=== PATIENT | female | born 1950 | race Caucasian/White ===

== ENCOUNTER 2024-10-12 13:07 | Inpatient (IN) | payer MEDICARE, SELFPAY ==
--- NOTE | ~2024-10-12 | CT_ITS ---
EXAMINATION: CT HEAD WITHOUT CONTRAST CLINICAL INFORMATION: Fall, head strike COMPARISON: None available. TECHNIQUE: Contiguous axial imaging was performed from the skull base to vertex without intravenous administration of contrast. This CT examination was performed using dose optimization techniques as appropriate, variously including the following: *Automated exposure control *Adjustment of mA and/or kV according to patient size (this includes techniques or standardized protocols for targeted exams where dose is matched to indication/reason for exam; i.e. extremities or head) *Use of iterative reconstruction technique FINDINGS: There is technical artifact in the posterior fossa. There is no evidence of intracranial hemorrhage or extra-axial fluid collection. There is no mass effect, or edema. No CT evidence of acute territorial infarct. Ventricles, sulci, and cisterns are normal in size and configuration for patient age. There is more prominent bifrontal atrophy. No hydrocephalus. No midline shift. Negative hyperdense MCA sign. Negative insular ribbon sign. Patchy periventricular and deep white matter hypoattenuation is consistent with mild to moderate small vessel ischemic changes. Normal pituitary. Atheromatous calcification of the bilateral carotid siphons. Globes and orbital contents image normally. No extracranial soft tissue abnormalities. The paranasal sinuses, mastoid air cells, and tympanic cavities are normally aerated. Tiny air-fluid left maxillary sinus. No suspicious bony abnormalities. There are no acute fractures evident. Degenerative changes right greater than left TM joints. CT/CT head/brain wo IV con IMPRESSION: 1. No acute intracranial abnormality. No fracture evident. 2. Ancillary findings as discussed. Electronically signed by: Diego Wayne MD 10/12/2024 03:10 PM EDT
--- NOTE | ~2024-10-12 | MR_ITS ---
CLINICAL HISTORY: ataxia, motion on images, repeats and reminders, best obtainable MR Brain without gadolinium Comparison: CT/SR - CT HEAD/BRAIN WO IV CON - 10/12/24 14:31 EDT Findings: There is age-appropriate atrophy. The size and shape of the ventricular system is within normal limits for degree of atrophy. Mild areas of T2 and FLAIR hyperintensity are identified within the periventricular and deep white matter. Similar areas of increased signal intensity are seen within the jose. Henderson-white differentiation is well preserved. No restricted diffusion. No intracranial hemorrhage. Visualized flow voids are patent. No calvarial lesions. IMPRESSION: No acute findings. Specifically, no hemorrhage, mass, or acutely restricted diffusion. This document has been electronically signed by: Javan Soriano MD on 10/12/2024 21:17:50
--- NOTE | ~2024-10-12 | FL_ITS ---
EXAMINATION: FL GUIDANCE ONLY HISTORY: IM Nailing right COMPARISON: Correlation is made with plain films of the right hip dated 10/12/2024. TECHNIQUE: Fluoroscopy time: 0.7 minutes. Cumulative Dose: 8.66 mGy. DAP: 0.150 mGym2 Images: 4. FINDINGS: Images demonstrate internal fixation of the previously seen intertrochanteric fracture of the right femur with a compression screw and intramedullary elan. FL/FL guidance in OR IMPRESSION: Fluoroscopy during procedure. Please see procedure report for additional information. Electronically signed by: Ion Roberts MD 10/13/2024 03:21 PM EDT
--- NOTE | ~2024-10-12 | XR_ITS ---
EXAMINATION: XR BILATERAL HIPS WITH AP PELVIS CLINICAL INFORMATION: fall, hip pain COMPARISON: None available. TECHNIQUE: AP view of the pelvis and 2 views of each hip were obtained. FINDINGS: AP pelvis: SI joints are symmetrical with sclerosis and osteophytes, greater on the left. Pubic symphysis joint is unremarkable. There is moderate levoscoliosis of the visible spine with associated degenerative changes. Right hip: There is moderate medial joint space narrowing. There are osteophytes at the margin of the fovea. There are minimal osteophytes involving the lateral femoral head and acetabular roof. Left hip: There is mild to moderate medial joint space narrowing. There are marginal osteophytes involving the fovea. Otherwise, unremarkable. XR/XR hip BI w PEL1V IMPRESSION: Moderate degenerative changes are present involving both SI joints, greater on the right. Moderate right and [id number] left hip degenerative joint disease with medial hip joint space narrowing. Electronically signed by: John Mosher MD 10/12/2024 03:02 PM EDT
--- NOTE | ~2024-10-12 | CT_ITS ---
EXAMINATION: CT CERVICAL SPINE WITHOUT CONTRAST CLINICAL INFORMATION: Fall, neck pain COMPARISON: None available. TECHNIQUE: Spiral CT imaging of the cervical spine performed in axial plane without contrast. Multiplanar reformatted images were constructed from the axial data set. This CT examination was performed using dose optimization techniques as appropriate, variously including the following: *Automated exposure control *Adjustment of mA and/or kV according to patient size (this includes techniques or standardized protocols for targeted exams where dose is matched to indication/reason for exam; i.e. extremities or head) *Use of iterative reconstruction technique FINDINGS: CORONAL ALIGNMENT: -Normal SAGITTAL ALIGNMENT: -Mild straightening of the normal lordosis. The 3 mm anterolisthesis of C3 on C4, and C4 on C5. C1-C2 AND CRANIOCERVICAL JUNCTION: -Intact and aligned. There are moderate to advanced degenerative changes in the atlantoaxial joint. VERTEBRAL BODIES AND FACETS: -No fracture, compression deformity, traumatic subluxation, or suspicious bone lesion. -Normal facet alignment with multilevel right greater than left degenerative facet changes. DISCS: -Severe disc degeneration present C4-5, and C5-6. -There is otherwise mild to moderate disc degeneration C2-3, C3-4, and C7-T1. CENTRAL CANAL: -No evidence of high-grade central canal narrowing or large disc herniation allowing for modality limitations. PREVERTEBRAL AND PARAVERTEBRAL SOFT TISSUES: -No prevertebral soft tissue swelling or edema. No abnormal fluid collection. -There are subcentimeter nodules within the thyroid. No follow-up recommended. -There are moderate carotid bulb calcifications bilaterally. LUNG APICES: -Clear without pneumothorax. There is biapical pleural scarring. CT/CT cervical spine wo IV con IMPRESSION: 1. No CT evidence of acute cervical spine fracture or injury. 2. Moderate degenerative cervical spondylosis. Electronically signed by: Diego Wayne MD 10/12/2024 03:23 PM EDT
[2024-10-12 13:25] VITALS: BP 82/44; PULSE 86; O2SAT 99
[2024-10-12 13:30] VITALS: BP 94/53; PULSE 87; RESP 16; TEMP 36.6; O2SAT 98; BMI 19.3
--- NOTE | 2024-10-12 13:55 | ED_ITS ---
HPI - Fall General Chief Complaint: Fall Stated Complaint: FALL,R HIP PAIN/NON T BEARING,WEAKNESS,BP 82/44 Time Seen by Provider: 10/12/24 13:54 Source: patient and EMS Mode of arrival: EMS Limitations: no limitations History of Present Illness ED Provider: HPI Narrative: 74-year-old female not on blood thinners, reports tripping over the sidewalk, falling down, complains of right hip pain, not sure but she might have had a head injury, she is not on blood thinners, she does have history of dementia but generally was a good historian and her family member with her was able to provide additional history. Related Data Allergies Allergy/AdvReac Type Severity Reaction Status Date / Time Penicillins Allergy Unknown Unknown Verified 10/12/24 13:33 Review of Systems 2 Constitutional: Constitutional: Reports as per [facility] Social History Social History Advance Directives: No Advance Directives Information Provided: Yes Physical Exam 2 Vital Signs: Vital Signs: Last Vital Signs Temp 97.8 F 10/12/24 13:30 Pulse 87 10/12/24 13:30 Resp 18 10/12/24 15:02 BP 94/53 L 10/12/24 13:30 Pulse Ox 98 10/12/24 13:30 O2 Del Method Room Air 10/12/24 13:30 BMI result Body Mass Index 19.3 Const: Other: * Gen: ?Overall well-appearing patient * Neck: Cervical collar cleared using nexus criteria * CV: RRR, no obvious murmurs appreciated * Resp: ?No wheezing rales rhonchi no stridor moving air well * Abd: ?Bowel sounds are present, no tenderness no rebound no rigidity * MSK: Pain with range of motion of right hip without obvious shortening, no hematoma bilateral lower extremity pulses intact * Skin: Warm, dry, intact, * Neuro: ?Alert and oriented to self situation and location, moving upper and lower extremities symmetrically, no obvious facial asymmetry noted Medications Administered Discontinued Medications Generic Name Dose Route Start Last Admin Trade Name Freq PRN Reason Stop Dose Admin Morphine Sulfate 2 mg 10/12/24 14:03 10/12/24 15:02 Morphine Sulfate 4 Mg/Ml Cartridge IVPUSH 10/12/24 14:04 2 mg ONCE ONE Administration Protocol Medical Decision Making Medical Decision Making [facility] Narrative: Consideration for workup as below, highest on my differential is to make sure she does not have a hip fracture and also giving her age we will obtain imaging of the head and neck to evaluate for intracranial head bleed, I did clear her cervical collar using nexus criteria, she did not have any other symptoms to suspect underlying syncope, anemia, dehydration. 14:50 patient has intertrochanteric fracture, we will be admitted, we will consult ortho Dr. Gutierrez. Physician ordered NPO after midnight for OR tomorrow morning Differential Diagnosis Differential Diagnoses: The differential diagnosis associated with the presentation includes Hip fracture, hip dislocation, head contusion, neck fracture, nonsyncopal fall Admission/Observation Consideration of admission/observation: Escalation of care including admission/observation considered Lab Data MDM Lab Attestation statement: I reviewed the patient's lab results. 10/12/24 15:00 10/12/24 15:00 Labs: Lab Results 10/12/24 Range/Units 15:00 WBC 10.0 (4.8-10.8) X10*3/uL RBC 3.39 L (4.20-5.50) X10*6/uL Hgb 10.0 L (12.0-16.0) g/dl Hct 30.7 L (37.0-47.0) % MCV 90.6 (80.0-98.0) fL MCH 29.5 (27.0-33.0) pg MCHC 32.6 (31.0-35.0) g/dl RDW 16.9 H (11.0-16.0) % Plt Count 293 (160-400) X10*3/uL MPV 9.6 (9.4-12.3) fL Immature Gran % (Auto) 1.1 H (0.0-0.4) % Neut % (Auto) 76.2 H (45-73) % Lymph % (Auto) 11.8 L (20-40) % Swift % (Auto) 8.7 (2-11) % Eos % (Auto) 1.7 (0-4) % Baso % (Auto) 0.5 (0-2) % Lymph # (Auto) 1.2 (1.2-4.9) X10*3/uL Swift # (Auto) 0.9 (0.1-1.2) X10*3/uL Eos # (Auto) 0.2 (0.0-0.4) X10*3/uL Baso # (Auto) 0.1 (0.0-0.2) X10*3/uL Abs Immat Gran (auto) 0.11 H (0.00-0.03) X10*3/uL Absolute Neuts (auto) 7.7 (2.0-8.3) x10*3/uL Absolute Nucleated RBC 0.000 (0.0-0.012) X10*3/uL Nucleated RBC % (auto) 0.0 (0.0-0.2) /100WBC Sodium 139 (135-145) mmol/L Potassium 3.4 (3.3-5.1) mmol/L Chloride 113 H (96-108) mmol/L Carbon Dioxide 17 L (22-29) mmol/L Anion Gap 12 (12-20) BUN 28 H (9-16) mg/dL Creatinine 1.81 H (0.5-1.4) mg/dL Estim Creat Clear Calc 22.2 Estimated GFR 27 Random Glucose 125 H (60-115) mg/dL Calcium 9.4 (8.4-10.2) mg/dL Total Bilirubin 0.2 (0.0-1.0) mg/dL AST 21 (5-31) U/L ALT 10 (0-31) U/L Total Protein 6.4 L (6.5-8.0) g/dL Albumin 3.7 (3.5-5.0) g/dL Independent Interpretation I performed an independent interpretation of an: Plain X-Ray (Patient has right intertrochanteric fracture) Discharge Plan Discharge Clinical Impression: Closed intertrochanteric fracture of right hip Patient Disposition: Admitted As Inpatient Print Language: German
--- NOTE | 2024-10-12 14:03 | ECG_ITS ---
Test Reason : WEAKNESS Blood Pressure : */* mmHG Vent. Rate : 86 BPM Atrial Rate : 86 BPM P-R Int : 184 ms QRS Dur : 78 ms QT Int : 392 ms P-R-T Axes : 81 1 66 degrees QTcB Int : 469 ms Normal sinus rhythm Normal ECG No previous ECGs available Referred By: Lew Edmonds Electronically Signed By: SHARI MCCONNELL MD
[2024-10-12 15:02] VITALS: RESP 18
[2024-10-12] MEDS: Morphine Sulfate 4 MG/ML CARTRIDGE 2 MG IVPUSH (15:02)
--- NOTE | 2024-10-12 15:03 | PC.NURSE ---
22g IV access established to left AC. Labs drawn and sent for analysis. Results pending. Morphine 2mg given as ordered. Unable to scan medication due to this RN accidentally disposing medication vial into sharps bin at administration time. at bedside for support.
[2024-10-12 15:10] LABS: Basophils Absolute Auto 0.1 X10*3/uL (0.0-0.2); Basophils Percent Auto 0.5 % (0-2); Eosinophils Absolute Auto 0.2 X10*3/uL (0.0-0.4); Eosinophils Percent Auto 1.7 % (0-4); Hematocrit 30.7 % (37.0-47.0); Imm Gran Abs Auto 0.11 X10*3/uL (0.00-0.03); Imm Gran Pct Auto 1.1 % (0.0-0.4); Lymphocytes Absolute Auto 1.2 X10*3/uL (1.2-4.9); Lymphocytes Percent Auto 11.8 % (20-40); MANUAL DIFF FLAG NO; Mean Corpuscular HGB Conc 32.6 g/dl (31.0-35.0); Mean Corpuscular Hemoglobin 29.5 pg (27.0-33.0); Mean Corpuscular Volume 90.6 fL (80.0-98.0); Mean Platelet Volume 9.6 fL (9.4-12.3); Monocytes Absolute Auto 0.9 X10*3/uL (0.1-1.2); Monocytes Percent Auto 8.7 % (2-11); Neutrophils Absolute Auto 7.7 x10*3/uL (2.0-8.3); Neutrophils Percent Auto 76.2 % (45-73); Platelet Count 293 X10*3/uL (160-400); Red Blood Count 3.39 X10*6/uL (4.20-5.50); Red Cell Distribution Width 16.9 % (11.0-16.0)
[2024-10-12 15:30] LABS: Alanine Aminotransferase 10 U/L (0-31); Albumin Level 3.7 g/dL (3.5-5.0); Anion Gap 12 (12-20); Aspartate Amino Transferase 21 U/L (5-31); Bilirubin Total 0.2 mg/dL (0.0-1.0); Blood Urea Nitrogen 28 mg/dL (9-16); Calcium 9.4 mg/dL (8.4-10.2); Carbon Dioxide 17 mmol/L (22-29); Chloride 113 mmol/L (96-108); Creatinine Clr Calc Pharmacy 22.2; Estimated Glomerular Filt Rate 27; Glucose Random 125 mg/dL (60-115); Potassium 3.4 mmol/L (3.3-5.1); Sodium 139 mmol/L (135-145); Total Protein 6.4 g/dL (6.5-8.0)
--- OUTSIDE RECORDS SUMMARY | 2024-10-12 15:39 | XMS_ITS | Patient Health Record ---
Author Organization [facility] Address [address] [place] [address] Care Team Providers Care Wind Farm Operations Manager Name Role Phone Eleno Melendez MD Unavailable Unavailable Reason For Referral No Information Medications Medication SIG (Take, Route, Frequency, Duration) Notes Start Date End Date Status Topamax 25 MG take 1 tablet by oral route 3 times a day Oral 3 Active Simvastatin 20 MG take 1 tablet (20 mg) by oral route once daily in the evening Oral 1 Active TENS unit with electrodes [id number] *please review for potential update for e-prescription and drug interaction check* 05/14/2019 Active Estradiol 0.1 MG/24HR apply 1 patch by transdermal route twice weekly cyclically, 3 weeks on and 1 week off Transdermal [id number] Active Losartan Potassium 100 MG take 1 tablet (100 mg) by oral route once daily Oral 1 Active oxyBUTYnin Chloride ER 15 MG take 1 tablet (15 mg) by oral route once daily Oral 1 Active Plan Of Treatment No Information Insurance Providers Payer Name Payer Address Payer Phone Subscriber Number Group Number Insured Name Patient Relationship to Insured Coverage Start Date Coverage End Date [employer] Medicare [address] [place] [address] [id number] Iliana Kenyon Self - patient is the insured 9 [employer] Choice POS [address] [address] [place] [address] [id number] Iliana Kenyon Self - patient is the insured 6 9 Medical (General) History Surgical History Surgery Date(Month/Year) Appendectomy; 12/26/2009 Colonoscopy; 07/08/2019 Cyst; 12/26/2009 Hysterectomy / Unknown; 12/26/2009 Uvulopalatopharyngoplasty; 07/08/2019
[2024-10-12 16:12] LABS: Alkaline Phosphatase 42 U/L (39-117)
[2024-10-12 17:03] VITALS: BP 148/78; PULSE 88; RESP 13; TEMP 36.5; O2SAT 99
[2024-10-12] MEDS: Acetaminophen 1,000 MG/100 ML PIGGYBACK 400 MG IV ×2 (17:18→22:57)
[2024-10-12] MEDS: Lactated Ringers 1,000 ML 999 ML IV (17:18)
[2024-10-12 17:37] VITALS: BP 148/78; PULSE 88; RESP 13; TEMP 36.5; O2SAT 99
--- NOTE | 2024-10-12 18:20 | PHA.MEDREC ---
Addendum entered by Chaka Elkins PharmD 10/12/24 18:39: reviewed Original Note: Pharmacy Consult ? Medication Reconciliation Pharmacy has completed the medication reconciliation. Spoke to patient to confirm med list. Patient last took her medications last night.
--- NOTE | 2024-10-12 19:03 | P.HPHOSP_ITS ---
History of Present Illness Date of Service: 10/12/24 Chief Complaint: Fall This is a 74-year-old female with pertinent history of right breast cancer status post lumpectomy /chemotherapy/radiation, gastroesophageal reflux disease, mood disorder, hypertension, peripheral neuropathy, urinary incontinence, mixed hyperlipidemia, cognitive dysfunction who presents to the emergency department for evaluation after a fall. Patient states while she was walking into an [employer] store, her right leg just gave out and she fell landing on her right side. Unclear if she hit her head. Also has been complaining of dizziness that has been ongoing, unclear duration. As per partner, patient likely has underlying cognitive dysfunction at baseline. Patient states she has had difficulty with balance that has been ongoing for unclear duration. No palpitations, loss of consciousness, jerking movement of extremities. Also complains of urinary incontinence but does have some urinary incontinence at baseline. No fever, chills, chest pain, shortness of breath, abdominal pain, changes in bowel habits. In the emergency department, imaging with right intertrochanteric fracture orthopedic surgery was consulted who requested admission to medicine team Review of Systems 2 Constitutional: Constitutional: Reports weakness ENT: Reports disequilibrium Genitourinary: Genitourinary: Reports urinary incontinence Musculoskeletal: Musculoskeletal: Reports abnormal gait and Reports arthralgias Neurologic: Reports abnormal gait, Reports disequilibrium and Reports weakness PMFSH Medical History Hypertension Breast cancer, right Mood disorder Gastroesophageal reflux disease Pertinent family history: No family history of early CAD Social History Unable to assess alcohol history related to: Unknown Smoked in Last 30 Days: No Use of substances other than those prescribed or required for medical reasons: No Advance Directives: No Advance Directives Information Provided: Yes Meds Allergies Allergy/AdvReac Type Severity Reaction Status Date / Time Penicillins Allergy Unknown Unknown Verified 10/12/24 13:33 Active Medications: Current Medications Acetaminophen (Ofirmev) 1,000 mg in 100 mls @ 400 mls/hr IV Q6H MARLIN Last Admin: 10/12/24 17:18 Dose: 400 mls/hr Clindamycin Phosphate (Cleocin) 900 mg in 50 mls @ 50 mls/hr IV PREOP ONE Stop: 10/13/24 06:15 Home Medications ?Medication ?Instructions ?Recorded ?Confirmed ?Last Taken ?Type anastrozole 1 mg tablet 1 mg PO DAILY 10/12/24 10/12/24 10/11/24 History chlorhexidine gluconate 0.12 % 15 ml BID 10/12/24 10/12/24 10/11/24 History mouthwash cyclobenzaprine 5 mg tablet 5 mg PO BEDTIME PRN muscle spasm 10/12/24 10/12/24 Unknown History escitalopram oxalate 20 mg tablet 20 mg PO DAILY 10/12/24 10/12/24 10/11/24 History famotidine 20 mg tablet 20 mg PO BID 10/12/24 10/12/24 10/11/24 History gabapentin 300 mg capsule 300 mg PO DAILY 10/12/24 10/12/24 10/11/24 History losartan 50 mg tablet 50 mg PO DAILY 10/12/24 10/12/24 10/11/24 History oxybutynin chloride 15 mg 15 mg PO DAILY 10/12/24 10/12/24 10/11/24 History tablet,extended release 24 hr rizatriptan 10 mg disintegrating 10 mg PO DAILY PRN Migraine 10/12/24 10/12/24 Unknown History tablet Headache simvastatin 20 mg tablet 20 mg PO BEDTIME 10/12/24 10/12/24 10/11/24 History topiramate 50 mg tablet 50 mg PO BID 10/12/24 10/12/24 10/11/24 History Physical Exam 2 Vital Signs and Narrative: Vital Signs: Last Vital Signs Temp 97.7 F 10/12/24 17:03 Pulse 88 10/12/24 17:03 Resp 13 10/12/24 17:03 BP 148/78 H 10/12/24 17:03 Pulse Ox 99 10/12/24 17:03 O2 Del Method Room Air 10/12/24 17:03 BMI result Body Mass Index 19.3 Elderly female lying in bed in no distress Neck supple, no JVD Regular rate and rhythm, S1-S2 heard Regular breath sounds bilaterally, no wheezing or crackles appreciated Abdomen soft nontender, no guarding, no rigidity Patient is awake, alert and oriented x3 ; no focal motor deficit Psych: Normal mood Right lower extremity with shortening and external rotation, limited movement due to pain Results Labs 10/12/24 15:00 10/12/24 15:00 Labs: Laboratory Results - last 24 hr 10/12/24 15:00 MCV 90.6 MCH 29.5 MCHC 32.6 RDW 16.9 H Plt Count 293 MPV 9.6 Immature Gran % (Auto) 1.1 H Neut % (Auto) 76.2 H Lymph % (Auto) 11.8 L Chilton % (Auto) 8.7 Eos % (Auto) 1.7 Baso % (Auto) 0.5 Lymph # (Auto) 1.2 Chilton # (Auto) 0.9 Eos # (Auto) 0.2 Baso # (Auto) 0.1 Abs Immat Gran (auto) 0.11 H Absolute Neuts (auto) 7.7 Absolute Nucleated RBC 0.000 Nucleated RBC % (auto) 0.0 Anion Gap 12 Estim Creat Clear Calc 22.2 Estimated GFR 27 Random Glucose 125 H Calcium 9.4 Total Bilirubin 0.2 AST 21 ALT 10 Alkaline Phosphatase 42 Total Protein 6.4 L Albumin 3.7 Imaging Radiologist's Impressions: Impressions Hip/Pelvis X-Ray 10/12/24 13:18 IMPRESSION: Moderate degenerative changes are present involving both SI joints, greater on the right. Moderate right and [id number] left hip degenerative joint disease with medial hip joint space narrowing. Electronically signed by: John Mosher MD 10/12/2024 03:02 PM EDT Cervical Spine CT 10/12/24 13:[address]: [address] evidence of acute cervical spine fracture or injury. 2. Moderate degenerative cervical spondylosis. Electronically signed by: Diego Wayne MD 10/12/2024 03:[address] 10/12/24 13:31 IMPRESSION: 1. No acute intracranial abnormality. No fracture evident. 2. Ancillary findings as discussed. Electronically signed by: Diego Wayne MD 10/12/2024 03:10 PM EDT Assessment and Plan (1) Closed intertrochanteric fracture of right hip: Qualifiers: Encounter type: initial encounter Fracture alignment: nondisplaced Q ualified Code(s): S72.144A - Nondisplaced intertrochanteric fracture of right femur, initial encounter for closed fracture Status: Acute Plan This is a 74-year-old female with pertinent history of right breast cancer status post lumpectomy /chemotherapy/radiation, gastroesophageal reflux disease, mood disorder, hypertension, peripheral neuropathy, urinary incontinence, mixed hyperlipidemia, cognitive dysfunction who presents to the emergency department for evaluation after a fall. #. Right intertrochanteric fracture due to fall: Will admit patient with IV opioids p.r.n. for analgesia. Orthopedic surgery consulted from the ER, appreciate assistance. Unclear preceding events leading to fall due to likely underlying cognitive dysfunction. Does complain of dizziness. Will keep on brake repairer air and resuscitate with IV crystalloids. Also complains of imbalance ?ataxia, unknown duration. Obtaining B12/folate and MRI of the brain. #. Preoperative risk: RCRI score 0. Okay to proceed with acceptable risk #. Elevated creatinine. Unclear baseline. Monitor with crystalloid resuscitation. Will hold losartan #. Urinary incontinence: Does have some urinary incontinence at baseline. Obtaining UA to determine need for antibiotics. No sepsis #. GERD: On famotidine #. Mood disorder: Resume lexapro once able to take PO #. Mixed HLD: On statin DVT prophylaxis: Mechanical Full code Admit as inpatient and will require two night minimum hospital stay for possible surgical management of right intertrochanteric fracture (as above), which is not possible in a lesser acute setting. Quality Stroke Does the patient have a stroke diagnosis?: No VTE Prior VTE?: No VTE Risk Level:: Medical - moderate - high VTE Device Contraindication: Treatment Not Indicated VTE Drug Contraindication: N/A - Med Ordered
[2024-10-12 19:53] VITALS: BP 153/94; PULSE 100; RESP 18; TEMP 36.4; O2SAT 98
[2024-10-12 19:54] VITALS: BMI 18.7
[2024-10-12] MEDS: Morphine Sulfate 4 MG/ML CARTRIDGE IVPUSH (21:05)
[2024-10-12] MEDS: 0.9 % Sodium Chloride Flush 3 ML SYRINGE IVFLUSH (22:58)
[2024-10-13] VITALS (9 sets, daily range): BP systolic 101–118; BP diastolic 36–58; PULSE 84–111; RESP 16–18; TEMP 36–36.9; O2SAT 94–99; BMI 18.7
[2024-10-13] MEDS: Cyclobenzaprine HCl 5 MG TABLET PO (00:15)
[2024-10-13] MEDS: Morphine Sulfate 4 MG/ML CARTRIDGE IVPUSH ×2 (00:55→20:31)
[2024-10-13 01:06] LABS: Appearance Urine Cloudy; Color Urine Yellow; Glucose Urine UA Negative (Negative); Leukocyte Esterase Urine Large (3+) (Negative); Nitrite Urine Positive (Negative); UMIC TRIGGER UACC YES; Urine Blood Moderate (2+) (Negative); Urine Ketones Negative (Negative); Urine Protein 100 (2+) mg/dL (Neg-Trace)
[2024-10-13 01:09] LABS: Bacteria Urine 4+ (None Seen); Hyaline Casts Urine 0-2 /LPF (0-2); RBC Urine >20 /HPF (0-2); Squamous Epithelial Cell Urine 0-2 /HPF (0-2); UACC Culture Trigger YES; WBC Urine >50 /HPF (0-5)
[2024-10-13] MEDS: Acetaminophen 1,000 MG/100 ML PIGGYBACK 400 MG IV ×4 (04:23→21:57)
--- NOTE | 2024-10-13 05:29 | PC.NURSE ---
pt unable to void, bladder scanned at 0015 for 469 ml. [place] text to Dr. Crocker, saucedo catheter ordered and placed at 0050.
[2024-10-13 05:39] LABS: MANUAL DIFF FLAG NO
[2024-10-13 05:48] LABS: Basophils Absolute Auto 0.1 X10*3/uL (0.0-0.2); Basophils Percent Auto 0.5 % (0-2); Eosinophils Absolute Auto 0.3 X10*3/uL (0.0-0.4); Eosinophils Percent Auto 2.8 % (0-4); Hematocrit 28.9 % (37.0-47.0); Hemoglobin 9.2 g/dl (12.0-16.0); Imm Gran Abs Auto 0.07 X10*3/uL (0.00-0.03); Imm Gran Pct Auto 0.7 % (0.0-0.4); Lymphocytes Absolute Auto 1.6 X10*3/uL (1.2-4.9); Lymphocytes Percent Auto 16.3 % (20-40); Mean Corpuscular HGB Conc 31.8 g/dl (31.0-35.0); Mean Corpuscular Hemoglobin 29.3 pg (27.0-33.0); Mean Platelet Volume 10.2 fL (9.4-12.3); Monocytes Absolute Auto 1.2 X10*3/uL (0.1-1.2); Monocytes Percent Auto 11.6 % (2-11); Neutrophils Absolute Auto 6.9 x10*3/uL (2.0-8.3); Neutrophils Percent Auto 68.1 % (45-73); Platelet Count 260 X10*3/uL (160-400); Red Blood Count 3.14 X10*6/uL (4.20-5.50); Red Cell Distribution Width 16.8 % (11.0-16.0); White Blood Count 10.1 X10*3/uL (4.8-10.8)
[2024-10-13 06:02] LABS: Anion Gap 11 (12-20); Blood Urea Nitrogen 25 mg/dL (9-16); Calcium 8.8 mg/dL (8.4-10.2); Carbon Dioxide 18 mmol/L (22-29); Chloride 114 mmol/L (96-108); Creatinine Clr Calc Pharmacy 23.8; Estimated Glomerular Filt Rate 31; Glucose Random 83 mg/dL (60-115); Potassium 3.7 mmol/L (3.3-5.1); Sodium 139 mmol/L (135-145)
[2024-10-13 06:36] LABS: Folate 4.6 ng/mL (> or = 4.0); Vitamin B12 553 pg/mL (200-900)
--- NOTE | 2024-10-13 07:50 | P.CONOP_ITS ---
History of Present Illness [facility] Consult date: 10/13/24 Chief complaint: Hip Fracture Narrative: 74-year-old female admitted to the medical service after sustaining a fall resulting in an intertroch fx right hip. She reports tripping over the sidewalk, falling down, complains of right hip pain. she is not on blood thinners, she does have history of dementia. She states she lives at home with her and does not use a cane or a walker. Review of Systems 2 Review of Systems: Yes all other systems are reviewed and are negative COUNT INCLUDES THE [facility] Past Medical History Medical History Hypertension Breast cancer, right Mood disorder Gastroesophageal reflux disease Social History Social History Household Members: Spouse Housing: House Do you presently have visiting nurse or other home services: No Unable to assess alcohol history related to: Unknown Patient Tobacco Use Status: Never used Tobacco Meds Allergies Allergy/AdvReac Type Severity Reaction Status Date / Time Penicillins Allergy Unknown Unknown Verified 10/12/24 13:33 Active Medications: Current Medications Acetaminophen (Acetaminophen 325 Mg Tablet) 650 mg PO Q6H PRN PRN Reason: Pain, Mild 1-3,fever,headache Calcium Carbonate (Calcium Carbonate 750 Mg Tab.Chew) 750 mg PO Q4H PRN PRN Reason: Heartburn Ceftriaxone Sodium (Ceftriaxone Sodium 1 Gm Vial) 1 gm IVPUSH Q24H [facility] Cyclobenzaprine HCl (Cyclobenzaprine Hcl 5 Mg Tablet) 5 mg PO BEDTIME PRN PRN Reason: muscle spasm Last Admin: 10/13/24 00:15 Dose: 5 mg Escitalopram Oxalate (Escitalopram Oxalate 20 Mg Tablet) 20 mg PO DAILY [place] Famotidine (Famotidine 20 Mg Tablet) 20 mg PO BID [facility] Last Admin: 10/12/24 21:05 Dose: Not Given Acetaminophen (Ofirmev) 1,000 mg in 100 mls @ 400 mls/hr IV Q6H [facility] Last Infusion: 10/13/24 04:47 Dose: Infused Magnesium Hydroxide (Milk Of Magnesia 30 Ml Oral.Susp) 30 ml PO DAILY PRN PRN Reason: Constipation Melatonin (Melatonin 3 Mg Tablet) 6 mg PO BEDTIME PRN PRN Reason: Insomnia Morphine Sulfate (Morphine Sulfate 4 Mg/Ml Cartridge) 4 mg IVPUSH Q4H PRN; Protocol PRN Reason: Pain, Severe (Pain Scale 7-10) Last Admin: 10/13/24 00:55 Dose: 4 mg Ondansetron HCl (Ondansetron Hcl 4 Mg/2 Ml Vial) 4 mg IVPUSH Q8H PRN PRN Reason: Nausea and Vomiting Sodium Chloride (0.9 % Sodium Chloride Flush 3 Ml Syringe) 3 ml IVFLUSH QSHIFT [facility] Last Admin: 10/12/24 22:58 Dose: 3 ml Home Medications ?Medication ?Instructions ?Recorded ?Confirmed ?Last Taken ?Type anastrozole 1 mg tablet 1 mg PO DAILY 10/12/24 10/12/24 10/11/24 History chlorhexidine gluconate 0.12 % 15 ml BID 10/12/24 10/12/24 10/11/24 History mouthwash cyclobenzaprine 5 mg tablet 5 mg PO BEDTIME PRN muscle spasm 10/12/24 10/12/24 Unknown History escitalopram oxalate 20 mg tablet 20 mg PO DAILY 10/12/24 10/12/24 10/11/24 History famotidine 20 mg tablet 20 mg PO BID 10/12/24 10/12/24 10/11/24 History gabapentin 300 mg capsule 300 mg PO DAILY 10/12/24 10/12/24 10/11/24 History losartan 50 mg tablet 50 mg PO DAILY 10/12/24 10/12/24 10/11/24 History oxybutynin chloride 15 mg 15 mg PO DAILY 10/12/24 10/12/24 10/11/24 History tablet,extended release 24 hr rizatriptan 10 mg disintegrating 10 mg PO DAILY PRN Migraine 10/12/24 10/12/24 Unknown History tablet Headache simvastatin 20 mg tablet 20 mg PO BEDTIME 10/12/24 10/12/24 10/11/24 History topiramate 50 mg tablet 50 mg PO BID 10/12/24 10/12/24 10/11/24 History Physical Exam 2 Vital Signs: Vital Signs: Last Vital Signs Temp 97.6 F 10/13/24 03:08 Pulse 84 10/13/24 03:08 Resp 16 10/13/24 03:08 BP 101/52 L 10/13/24 03:08 Pulse Ox 97 10/13/24 03:08 O2 Del Method Room Air 10/13/24 03:08 BMI result Body Mass Index 18.7 Const: General: cooperative, healthy appearing and no acute distress Resp: Effort & Inspection: normal respiratory effort and able to speak in complete sentences Cardio: Rate: regular rate Peripheral pulses: Peripheral pulses 2+ throughout GI: Palpation (GI): Soft to palpation Skin: General skin exam: no rashes or lesions noted Extrem: Other: Right hip normal to inspection. Unable to SLR. Pain wtih log roll. NVI. Results Labs 10/13/24 05:23 10/13/24 05:23 Labs: Abnormal lab results 10/12/24 10/13/24 10/13/24 Range/Units 15:00 00:54 05:23 RBC 3.39 L 3.14 L (4.20-5.50) X10*6/uL Hgb 10.0 L 9.2 L (12.0-16.0) g/dl Hct 30.7 L 28.9 L (37.0-47.0) % RDW 16.9 H 16.8 H (11.0-16.0) % Immature Gran % (Auto) 1.1 H 0.7 H (0.0-0.4) % Neut % (Auto) 76.2 H (45-73) % Lymph % (Auto) 11.8 L 16.3 L (20-40) % [place] % (Auto) 11.6 H (2-11) % Abs Immat Gran (auto) 0.11 H 0.07 H (0.00-0.03) X10*3/uL Chloride 113 H 114 H (96-108) mmol/L Carbon Dioxide 17 L 18 L (22-29) mmol/L Anion Gap 11 L (12-20) BUN 28 H 25 H (9-16) mg/dL Creatinine 1.81 H 1.64 H (0.5-1.4) mg/dL Random Glucose 125 H (60-115) mg/dL Total Protein 6.4 L (6.5-8.0) g/dL Urine Protein 100 (2+) H (Neg-Trace) mg/dL Urine Blood Moderate (2+) H (Negative) Urine Nitrite Positive H (Negative) Ur Leukocyte Esterase Large (3+) H (Negative) Urine RBC >20 H (0-2) /HPF Urine WBC >50 H (0-5) /HPF H & H 10/12/24 10/13/24 Range/Units 15:00 05:23 Hgb 10.0 L 9.2 L (12.0-16.0) g/dl Hct 30.7 L 28.9 L (37.0-47.0) % All other labs normal. Diagnostic results Hip x-ray: report reviewed (There is lucency in the intertrochanteric region extending into the lesser trochanter concerning for fracture.) Assessment and Plan (1) Closed intertrochanteric fracture of right hip: Qualifiers: Encounter type: initial encounter Fracture alignment: nondisplaced Q ualified Code(s): S72.144A - Nondisplaced intertrochanteric fracture of right femur, initial encounter for closed fracture Status: Acute Plan I discussed the case with Dr Gutierrez and explained the extent of the injury to the patient and options available which include surgical intervention. I explained the procedure in detail along with the length of recovery and rehab course. I explained the risk, benefits and alternatives. Risk including, but not limited to infection, blood clots, bleeding, non union or malunion and nerve/tissue damage to surrounding areas. I answered all their questions and with their understanding they have consented to move forward with Operative Fixation of the right hip . The patient will be T&S, med clearance obtained and NPO . Procedures Date of Service Date of Service: 10/13/24
[2024-10-13] MEDS: 0.9 % Sodium Chloride Flush 3 ML SYRINGE IVFLUSH (08:19)
[2024-10-13] MEDS: cefTRIAXone sodium 1 GM VIAL IVPUSH (08:19)
[2024-10-13] MEDS: Escitalopram Oxalate 20 MG TABLET PO (08:19)
--- NOTE | 2024-10-13 08:24 | P.PNIM_ITS ---
Subjective Subjective Date of Service: 10/13/24 Interval History: No longer has dizziness. Hip pain well controlled with analgesics Constitutional Constitutional: Reports no additional constitutional complaints and Reports weakness ENT Ears, Nose, Mouth, and Throat: Reports disequilibrium Cardiovascular Cardiovascular: Reports no additional cardiovascular complaints Respiratory Respiratory: Reports no additional respiratory complaints Gastrointestinal Gastrointestinal: Reports no additional gastrointestinal complaints Genitourinary Genitourinary: Reports no additional female genitourinary complaints Musculoskeletal Musculoskeletal: Reports abnormal gait and Reports arthralgias Neurologic Neurologic: Reports abnormal gait, Reports disequilibrium and Reports weakness Physical Exam 2 Vital Signs: Vital Signs: Last Vital Signs Temp 98.2 F 10/13/24 08:00 Pulse 88 10/13/24 08:00 Resp 16 10/13/24 08:00 BP 116/56 L 10/13/24 08:00 Pulse Ox 99 10/13/24 08:00 O2 Del Method Room Air 10/13/24 08:00 BMI result Body Mass Index 18.7 Elderly female lying in bed in no distress Neck supple, no JVD Regular rate and rhythm, S1-S2 heard Regular breath sounds bilaterally, no wheezing or crackles appreciated Abdomen soft nontender, no guarding, no rigidity Patient is awake, alert and oriented x3 ; no focal motor deficit Psych: Normal mood Right lower extremity with shortening and external rotation, limited movement due to pain Const: Other: * Gen: ?Overall well-appearing patient * Neck: Cervical collar cleared using nexus criteria * CV: RRR, no obvious murmurs appreciated * Resp: ?No wheezing rales rhonchi no stridor moving air well * Abd: ?Bowel sounds are present, no tenderness no rebound no rigidity * MSK: Pain with range of motion of right hip without obvious shortening, no hematoma bilateral lower extremity pulses intact * Skin: Warm, dry, intact, * Neuro: ?Alert and oriented to self situation and location, moving upper and lower extremities symmetrically, no obvious facial asymmetry noted General: cooperative, healthy appearing and no acute distress Resp: Effort & Inspection: normal respiratory effort and able to speak in complete sentences Cardio: Rate: regular rate Peripheral pulses: Peripheral pulses 2+ throughout GI: Palpation (GI): Soft to palpation Skin: General skin exam: no rashes or lesions noted Extrem: Other: Right hip normal to inspection. Unable to SLR. Pain wtih log roll. NVI. Objective Data Active Medications Acetaminophen (Acetaminophen 325 Mg Tablet) 650 mg PO Q6H PRN PRN Reason: Pain, Mild 1-3,fever,headache Calcium Carbonate (Calcium Carbonate 750 Mg Tab.Chew) 750 mg PO Q4H PRN PRN Reason: Heartburn Ceftriaxone Sodium (Ceftriaxone Sodium 1 Gm Vial) 1 gm IVPUSH Q24H [facility]CLUDES [facility] Last Admin: 10/13/24 08:19 Dose: 1 gm Documented By: RACHEL Cyclobenzaprine HCl (Cyclobenzaprine Hcl 5 Mg Tablet) 5 mg PO BEDTIME PRN PRN Reason: muscle spasm Last Admin: 10/13/24 00:15 Dose: 5 mg Documented By: PRIYANKA Escitalopram Oxalate (Escitalopram Oxalate 20 Mg Tablet) 20 mg PO DAILY [facility]CLUDES [facility] Last Admin: 10/13/24 08:19 Dose: 20 mg Documented By: RACHEL Famotidine (Famotidine 20 Mg Tablet) 20 mg PO BID [facility]CLUD[facility] Last Admin: 10/13/24 08:20 Dose: Not Given Documented By: RACHEL Non-Admin Reason: Patient Refused Acetaminophen (Ofirmev) 1,000 mg in 100 mls @ 400 mls/hr IV Q6H [facility]CLUDES [facility] Last Infusion: 10/13/24 04:47 Dose: Infused Documented By: PRIYANKA Magnesium Hydroxide (Milk Of Magnesia 30 Ml Oral.Susp) 30 ml PO DAILY PRN PRN Reason: Constipation Melatonin (Melatonin 3 Mg Tablet) 6 mg PO BEDTIME PRN PRN Reason: Insomnia Morphine Sulfate (Morphine Sulfate 4 Mg/Ml Cartridge) 4 mg IVPUSH Q4H PRN; Protocol PRN Reason: Pain, Severe (Pain Scale 7-10) Last Admin: 10/13/24 00:55 Dose: 4 mg Documented By: PRIYANKA Ondansetron HCl (Ondansetron Hcl 4 Mg/2 Ml Vial) 4 mg IVPUSH Q8H PRN PRN Reason: Nausea and Vomiting Sodium Chloride (0.9 % Sodium Chloride Flush 3 Ml Syringe) 3 ml IVFLUSH QSHIFT [facility]CLUD[facility] Last Admin: 10/13/24 08:19 Dose: 3 ml Documented By: RACHEL Labs 10/13/24 05:23 10/13/24 05:23 Labs: Laboratory Results - last 24 hr 10/12/24 10/13/24 10/13/24 15:00 00:54 05:23 MCV 90.6 92.0 MCH 29.5 29.3 MCHC 32.6 31.8 RDW 16.9 H 16.8 H Plt Count 293 260 MPV 9.6 10.2 Immature Gran % (Auto) 1.1 H 0.7 H Neut % (Auto) 76.2 H 68.1 Lymph % (Auto) 11.8 L 16.3 L [place] % (Auto) 8.7 11.6 H Eos % (Auto) 1.7 2.8 Baso % (Auto) 0.5 0.5 Lymph # (Auto) 1.2 1.6 Leslie # (Auto) 0.9 1.2 Eos # (Auto) 0.2 0.3 Baso # (Auto) 0.1 0.1 Abs Immat Gran (auto) 0.11 H 0.07 H Absolute Neuts (auto) 7.7 6.9 Absolute Nucleated RBC 0.000 0.000 Nucleated RBC % (auto) 0.0 0.0 Anion Gap 12 11 L Estim Creat Clear Calc 22.2 23.8 Estimated GFR 27 31 Random Glucose 125 H 83 Calcium 9.4 8.8 D Total Bilirubin 0.2 AST 21 ALT 10 Alkaline Phosphatase 42 Total Protein 6.4 L Albumin 3.7 Vitamin B12 553 Folate 4.6 Urine Color Yellow Urine Appearance Cloudy Urine pH 6.0 Ur Specific [place] 1.010 Urine Protein 100 (2+) H Urine Glucose (UA) Negative Urine Ketones Negative Urine Blood Moderate (2+) H Urine Nitrite Positive H Ur Leukocyte Esterase Large (3+) H Urine RBC >20 H Urine WBC >50 H Ur Squamous Epith Cells 0-2 Urine Bacteria 4+ Hyaline Casts 0-2 Assessment and Plan (1) Closed intertrochanteric fracture of right hip: Status: Acute Plan This is a 74-year-old female with pertinent history of right breast cancer status post lumpectomy /chemotherapy/radiation, gastroesophageal reflux disease, mood disorder, hypertension, peripheral neuropathy, urinary incontinence, mixed hyperlipidemia, cognitive dysfunction who presents to the emergency department for evaluation after a fall. #. Right intertrochanteric fracture due to fall: Unclear preceding events leading to fall due to underlying cognitive dysfunction. Mechanical versus other. Initially complaining of dizziness on admission which resolved with crystalloid resuscitation. B12/folate okay. ?ataxia on admission but MRI without acute CVA. Noted plans for operative fixation of right hip orthopedic surgery #. Acute UTI: Initiated IV ceftriaxone, 10/13 #. Preoperative risk: RCRI score 0. Okay to proceed with acceptable risk #. Elevated creatinine. Unclear baseline. Improved with crystalloid resuscitation. Will hold losartan to prevent postop hypotension #. GERD: On famotidine #. Mood disorder: Resume lexapro once able to take PO #. Mixed HLD: On statin DVT prophylaxis: Mechanical Full code Reason for continued hospitalization: Operative fixation of right hip orthopedic surgery Quality Stroke Does the patient have a stroke diagnosis?: No VTE Prior VTE?: No VTE Risk Level:: Medical - moderate - high VTE Device Contraindication: Treatment Not Indicated VTE Drug Contraindication: N/A - Med Ordered
--- NOTE | 2024-10-13 09:56 | MHC.CM.PN ---
IMM 10/13/24, PT W/R HIP FX, PLAN FOR SURGICAL REPAIR TODAY. CM MET W/PT WHO REPORTS SHE LIVES W/ SHARON, USES A WALKER AT [facility] OTHERWISE IS INDEP, NO HOME SERVICES. PT DOES REPORT SHE TAKES ORAL CHEMO AND THAT SHE WILL NEED TO HAVE HER BRING IT TO SNF, PT REPORTS SHE HAS NO PREFERRED SNF'S AT THS TIME AND CM WILL CHECK IN W/SHARON WHEN HE COMES IN. PT VERIFIES PCP IS SHERRON ESPINOSA AND HCP IS KERRY AND COPY ON FILE.
--- NOTE | 2024-10-13 10:43 | MHC.CLN ---
CONSULT PT IS MODERATELY MALNOURISHED PT WITH POOR PO INTAKE X 3 MONTHS WITH MILD DEPLETION OF MUSCLE MASS AND BMI 18.7 PT REPORTS WT LOSS OF UNKNOWN AMOUNT STARTING IN MAY 2024 R/T ACUTE ILLNES; ESOPHAGITIS WITH POOR PO INTAKE X 3 MONTHS. PT REPORTS HER APPETITE HAS IMPROVED AND SHE IS SLOWLY GAINING BACK WT. PT IS CURRENTLY NPO AWAITING HIP FX REPAIR WHEN DIET TO ADVANCE, PT RECEPTIVE TO ENSURE BID TO INCREASE KCALS SUPP TO PROVIDE 700KCALS, 40G PROTEIN MONITOR PO INTAKE AND ENCOURAGE SUPPLEMENT SEE FULL CLINICAL NUTRITION ASSESSMENT
[2024-10-13] MEDS: Lactated Ringers 1,000 ML 50 ML IVCONT ×2 (12:35→19:15)
--- NOTE | 2024-10-13 15:34 | P.BOP_ITS ---
Brief Operative Note Date of Service: 10/13/24 Pre-op diagnosis: Right hip intertrochanteric fracture Post-op diagnosis: same Procedure: Open reduction and internal fixation of right hip intertrochanteric fracture with placement of a short gamma nail Implants: [place] short gamma nail measuring 180 mm in length by 11 mm in diameter with a 125 degree neck-shaft angle, standard lag screw measuring 90 mm in length, standard set screw, distal locking bolt measuring 35 mm in length Surgeon: Elliott Gutierrez MD Anesthesia: GLMA Was an Rd Mechanical Engineer used for this Procedure?: No Estimated blood loss (mL): 100 Pathology: none sent Condition: stable Disposition: PACU
--- NOTE | 2024-10-13 15:35 | W.PM.OPN ---
Operative Note Operative Note Date of Service: 10/13/24 Narrative: After the patient was identified as Iliana Kenyon and her right hip was initialed by myself they were brought to the operating room where general anesthesia was induced by the anesthesiologist in routine fashion. Because of the patient's allergy to penicillin she was given 900 mg of IV clindamycin preoperatively for infection prophylaxis. The patient was then gently transferred from the hospital bed onto the fracture table. The patient's left lower extremity was placed into the well leg duque. The patient's right lower extremity was placed in gentle in-line traction with their patella parallel to the floor. All bony prominences were well padded. C-arm AP and lateral radiographs were taken to confirm good fracture reduction. The patient's right hip region was prepped and draped in sterile fashion. A formal time-out was completed. A #10 scalpel blade was used to make a 5 cm incision just proximal to the tip of the greater trochanter. A curved cannulated awl was introduced into the proximal femur in routine fashion. A ball-tipped guidewire was then placed through the cannula and into the femoral canal. The awl was removed. Reaming was begun with a 9 mm reamer. Reaming was increased incrementally up to a size 13 reamer distally. The proximal canal was reamed with a 15.5 mm reamer. The gamma nail measuring 11 mm in diameter by 180 mm in length was passed over the guidewire. Good fracture reduction and nail positioning were confirmed using C-arm AP and lateral radiographs. A 2 cm incision was then made where the lag screw trocar met the patient's lateral thigh. The subcutaneous tissues and fascia emelyn were split down to the lateral cortex of the femur using a hemostat. The lag screw trocar was passed down to the lateral cortex of the femur. A threaded guidewire was then placed into the inferior aspect of the femoral head on the AP x-ray and the center of the femoral head on the lateral x-ray. The guidewire measured 90 mm in length. Reaming was then performed over the guidewire to a depth of 90 mm. The lag screw measuring 90 mm in length was then placed over the guidewire. The guidewire was removed. The set screw was then placed into the nail and tightened fully. It was then turned 1/4 of a turn counter-clockwise to allow for fracture compression. A 2 cm incision was then made where the distal locking bolt trocar met the lateral aspect of the patient's thigh. The subcutaneous tissues and the fascia emelyn were split down to the lateral cortex of the femur. The locking bolt hole was drilled in routine fashion. The drill bit measured 35 mm in length. The distal locking bolt measuring 35 mm in length was put into place without difficulty. Final AP and lateral radiographs showed good fracture reduction and hardware positioning. All 3 wounds were irrigated with copious amounts of normal saline solution. The distal 2 wounds were closed with 2-0 Vicryl and skin daniella. The proximal wound was once again irrigated. The fascia emelyn was closed with 0 Vicryl [id number] interrupted suture. The wound was once again irrigated. The subcutaneous tissues were closed with 2-0 Vicryl interrupted suture. The skin was closed with skin daniella. Dry sterile dressing was placed over all incisions. The patient was gently transferred from the fracture table onto their hospital bed. The patient was awoken and extubated in the operating room. The patient was transferred to the recovery room in stable condition.
[2024-10-13] MEDS: Aspirin 325 MG TABLET PO (20:30)
[2024-10-13] MEDS: Famotidine 20 MG TABLET PO (20:31)
[2024-10-13] MEDS: Clindamycin Phosphate/D5W 900 MG/50 ML PIGGYBACK 50 MG IV (22:27)
--- NOTE | 2024-10-13 23:20 | P.CDIM_ITS ---
PROVIDER RESPONSE TEXT: To clarify, the appropriate diagnosis supported by the clinical indicators: Clinically unable to determine (explain): TONNY vs CKD as no baseline QUERY TEXT: PHYSICIAN'S DOCUMENTATION REQUEST Date of Query: 10/13/2024 10:27 AM EDT Patient Name: Iliana Kenyon Admit Date: 10/12/2024 Dear Twan Crocker MD, A review of the medical record indicates additional documentation may be needed. Please review below and update the documentation accordingly. Clinical Indicators: LABS: Bun Cr. 1.81/1.64 Gfr Weakness, urinary incontinence, presumed UTI. IV cystalloid resuscitation. Based on the above, is there a diagnosis that correlates with these findings: Acute kidney injury possible, probable, suspected, cannot rule out etc. Labs indicate a diagnosis of (please specify) Other (explain) Clinically unable to determine (explain) Thank you, Peggy Taylor, CCS, CDIS Use of terms such as suspected, likely, concern for, or probable (associated with a specific diagnosi s that is being evaluated, monitored, or treated as if it exists) are acceptable and can be coded in the inpatient se tting, when documented at the time of discharge. Please use your independent medical judgment in providing your response. THIS QUERY IS PART OF THE PERMANENT MEDICAL RECORD
[2024-10-14 03:04] VITALS: BP 112/58; PULSE 90; RESP 16; TEMP 36; O2SAT 94
[2024-10-14] MEDS: Acetaminophen 1,000 MG/100 ML PIGGYBACK 400 MG IV ×4 (03:52→21:43)
[2024-10-14] MEDS: ondansetron HCL 4 MG/2 ML VIAL IVPUSH (03:59)
[2024-10-14] MEDS: Clindamycin Phosphate/D5W 900 MG/50 ML PIGGYBACK 50 MG IV ×2 (06:07→14:40)
[2024-10-14 06:26] LABS: Basophils Absolute Auto 0.1 X10*3/uL (0.0-0.2); Basophils Percent Auto 0.5 % (0-2); Eosinophils Percent Auto 0.2 % (0-4); Hematocrit 25.2 % (37.0-47.0); Hemoglobin 8.1 g/dl (12.0-16.0); Imm Gran Abs Auto 0.07 X10*3/uL (0.00-0.03); Imm Gran Pct Auto 0.6 % (0.0-0.4); Lymphocytes Absolute Auto 0.4 X10*3/uL (1.2-4.9); Lymphocytes Percent Auto 3.3 % (20-40); MANUAL DIFF FLAG SCAN; Mean Corpuscular HGB Conc 32.1 g/dl (31.0-35.0); Mean Corpuscular Hemoglobin 29.6 pg (27.0-33.0); Mean Platelet Volume 10.1 fL (9.4-12.3); Monocytes Absolute Auto 0.3 X10*3/uL (0.1-1.2); Monocytes Percent Auto 2.9 % (2-11); Neutrophils Percent Auto 92.5 % (45-73); Platelet Count 254 X10*3/uL (160-400); Red Blood Count 2.74 X10*6/uL (4.20-5.50); Red Cell Distribution Width 16.8 % (11.0-16.0); SCAN SMEAR FLAG 1; White Blood Count 11.9 X10*3/uL (4.8-10.8)
[2024-10-14 06:50] LABS: Anion Gap 13 (12-20); Blood Urea Nitrogen 27 mg/dL (9-16); Carbon Dioxide 17 mmol/L (22-29); Chloride 110 mmol/L (96-108); Creatinine Clr Calc Pharmacy 26.8; Estimated Glomerular Filt Rate 35; Glucose Random 185 mg/dL (60-115); Potassium 3.9 mmol/L (3.3-5.1); Sodium 136 mmol/L (135-145)
[2024-10-14 07:09] VITALS: BP 113/60; PULSE 85; RESP 18; TEMP 36.2; O2SAT 96
[2024-10-14] MEDS: Aspirin 325 MG TABLET PO ×2 (07:38→20:34)
[2024-10-14] MEDS: cefTRIAXone sodium 1 GM VIAL IVPUSH (07:38)
[2024-10-14] MEDS: 0.9 % Sodium Chloride Flush 3 ML SYRINGE IVFLUSH (07:38)
[2024-10-14] MEDS: Famotidine 20 MG TABLET PO ×2 (07:38→20:33)
[2024-10-14] MEDS: Escitalopram Oxalate 20 MG TABLET PO (07:38)
[2024-10-14 07:46] LABS: SLIDE REVIEW VERIFIED
--- NOTE | 2024-10-14 07:49 | PM.PNORT ---
Subjective Subjective Date of Service: 10/14/24 Interval history: POD1 s/p right hip IM Nail Patient is resting in bed comfortably No overnight events Pain is managed No additional complaints Physical Exam Vital Signs: Vital Signs: Last Vital Signs Temp 97.1 F 10/14/24 07:09 Pulse 85 10/14/24 07:09 Resp 18 10/14/24 07:09 BP 113/60 10/14/24 07:09 Pulse Ox 96 10/14/24 07:09 O2 Del Method Room Air 10/14/24 07:09 BMI result Body Mass Index 18.7 Const: General: cooperative, healthy appearing and no acute distress Resp: Effort & Inspection: normal respiratory effort and able to speak in complete sentences Cardio: Rate: regular rate Peripheral pulses: Peripheral pulses 2+ throughout GI: Palpation (GI): Soft to palpation Skin: Lesions: no lesions Rashes: no rashes Extrem: Other: right hip dressing is c/d/i. Able to dorsi/plantar flex. Calf is supple and nontender. Sensation intact. Pedal pulse intact. Procedures Date of Service Date of Service: 10/14/24 Progress Note: A&P Assessment and plan (1) Closed intertrochanteric fracture of right hip: Status: Acute Plan Continue pain mgmnt Begin ASA for dvt ppx begin PT/OT for right hip IM Nail Dispo planning-Pending PT eval, pain mgmnt Time Spent With Patient Time: Total time managing care of this patient today ____ minutes. Quality Stroke Does the patient have a stroke diagnosis?: No VTE Prior VTE?: No VTE Risk Level:: Medical - moderate - high VTE Device Contraindication: Treatment Not Indicated VTE Drug Contraindication: N/A - Med Ordered
[2024-10-14] MEDS: Morphine Sulfate 4 MG/ML CARTRIDGE IVPUSH (07:52)
--- NOTE | 2024-10-14 09:30 | HO.POSTANES ---
Post Anesthesia Evaluation Post Anesthesia Evaluation Date of Service: 10/14/24 Vital Signs: Vital Signs Temp Pulse Resp BP Pulse Ox O2 Del Method 10/14/24 07:09 97.1 F 85 18 113/60 96 Room Air 10/14/24 03:04 96.8 F 90 16 112/58 L 94 Room Air Anesthesia: General LMA Mental Status: Awake Pain Control: Satisfactory Nausea/Vomiting: None Hydration: Adequate Anesthesia-Related Issues: No Anes. Related Issues
--- NOTE | 2024-10-14 11:08 | MHC.CLN ---
F/U DIET ADVANCED TO REGULAR. ADDING ENSURE BID TO INCREASE KCALS. SUPPLEMENT PROVIDES 700 KCALS, 40 G PROTEIN. MONITOR PO INTAKE AND ENCOURAGE SUPPLEMENT.
--- NOTE | 2024-10-14 15:00 | MHC.CM.PN ---
PT IS POD#1 RIGHT HIP FX REPAIR. [facility] ([facility]) HAS OFFERED A BED PENDING INSURANCE AUTH. AUTH PROCESS HAS BEEN STARTED BY [facility] WITH ANTICIPATION OF DC TOMORROW, 10/15. CM WILL CONTINUE TO FOLLOW.
[2024-10-14 15:31] VITALS: BP 124/58; PULSE 82; RESP 14; TEMP 36.7; O2SAT 99
--- NOTE | 2024-10-14 16:32 | HO.PM.IMPN ---
Subjective Subjective Date of Service: 10/14/24 Interval History: Right intertrochanteric fracture ,uti Review of Systems hip pain improving no urinary c/o. Review of Systems: Yes all other systems are reviewed and are negative Physical Exam Vital Signs: Vital Signs: Last Vital Signs Temp 98.0 F 10/14/24 15:31 Pulse 82 10/14/24 15:31 Resp 14 10/14/24 15:31 BP 124/58 L 10/14/24 15:31 Pulse Ox 99 10/14/24 15:31 O2 Del Method Room Air 10/14/24 15:31 BMI result Body Mass Index 18.7 Appearance: Alert.? Oriented X3.? cvs: rrr, [id number] . res: clear to auscultation ,no rhonchii or wheezing abd: no rebound or guarding ,nt, bs present. ext pulses present , no cyanosis right hip soarness . neuro: axo3 , nonfocal. Objective Data Active Medications Acetaminophen (Acetaminophen 325 Mg Tablet) 650 mg PO Q6H PRN PRN Reason: Pain, Mild 1-3,fever,headache Aspirin (Aspirin 325 Mg Tablet) 325 mg PO BID [facility] Last Admin: 10/14/24 07:38 Dose: 325 mg Documented By: PATY Calcium Carbonate (Calcium Carbonate 750 Mg Tab.Chew) 750 mg PO Q4H PRN PRN Reason: Heartburn Ceftriaxone Sodium (Ceftriaxone Sodium 1 Gm Vial) 1 gm IVPUSH Q24H [facility] Last Admin: 10/14/24 07:38 Dose: 1 gm Documented By: PATY Cyclobenzaprine HCl (Cyclobenzaprine Hcl 5 Mg Tablet) 5 mg PO BEDTIME PRN PRN Reason: muscle spasm Last Admin: 10/13/24 00:15 Dose: 5 mg Documented By: PRIYANKA Escitalopram Oxalate (Escitalopram Oxalate 20 Mg Tablet) 20 mg PO DAILY [facility] Last Admin: 10/14/24 07:38 Dose: 20 mg Documented By: PATY Famotidine (Famotidine 20 Mg Tablet) 20 mg PO BID [facility] Last Admin: 10/14/24 07:38 Dose: 20 mg Documented By: PATY Acetaminophen (Ofirmev) 1,000 mg in 100 mls @ 400 mls/hr IV Q6H [facility] Last Infusion: 10/14/24 15:56 Dose: Infused Documented By: PATY Lactated Ringer's (Lr) 1,000 mls @ 50 mls/hr IVCONT .Q20H [facility] Last Admin: 10/13/24 19:15 Dose: 50 mls/hr Documented By: EDILIA Magnesium Hydroxide (Milk Of Magnesia 30 Ml Oral.Susp) 30 ml PO DAILY PRN PRN Reason: Constipation Melatonin (Melatonin 3 Mg Tablet) 6 mg PO BEDTIME PRN PRN Reason: Insomnia Morphine Sulfate (Morphine Sulfate 4 Mg/Ml Cartridge) 4 mg IVPUSH Q4H PRN; Protocol PRN Reason: Pain, Severe (Pain Scale 7-10) Last Admin: 10/14/24 07:52 Dose: 4 mg Documented By: PATY Naloxone HCl (Naloxone Hcl 0.4 Mg/Ml Vial) 0.04 mg IVPUSH Q5M PRN PRN Reason: Excessive sedation or RR < 8 Ondansetron HCl (Ondansetron Hcl 4 Mg/2 Ml Vial) 4 mg IVPUSH Q8H PRN PRN Reason: Nausea and Vomiting Last Admin: 10/14/24 03:59 Dose: 4 mg Documented By: EDILIA Sodium Chloride (0.9 % Sodium Chloride Flush 3 Ml Syringe) 3 ml IVFLUSH QSHIFT [facility] Last Admin: 10/14/24 14:42 Dose: Not Given Documented By: PATY Non-Admin Reason: IV Running Labs 10/14/24 05:29 10/14/24 05:29 Labs: Laboratory Results - last 24 hr 10/14/24 05:29 MCV 92.0 MCH 29.6 MCHC 32.1 RDW 16.8 H Plt Count 254 MPV 10.1 Immature Gran % (Auto) 0.6 H Neut % (Auto) 92.5 H Lymph % (Auto) 3.3 L Stanton % (Auto) 2.9 Eos % (Auto) 0.2 Baso % (Auto) 0.5 Lymph # (Auto) 0.4 L Stanton # (Auto) 0.3 Eos # (Auto) 0.0 Baso # (Auto) 0.1 Abs Immat Gran (auto) 0.07 H Absolute Neuts (auto) 11.0 H Absolute Nucleated RBC 0.000 Nucleated RBC % (auto) 0.0 Smear Tech's Comments VERIFIED Anion Gap 13 Estim Creat Clear Calc 26.8 Estimated GFR 35 Random Glucose 185 H Calcium 8.0 L D Microbiology Microbiology Results: Microbiology 10/13/24 Unknown Urine Culture - Preliminary Urine clean catch - Clean Catch Midstream Gram negative elan Assessment and Plan (1) Closed intertrochanteric fracture of right hip: Status: Acute Assessment and Plan: 74-year-old female with pertinent history of right breast cancer status post lumpectomy /chemotherapy/radiation, gastroesophageal reflux disease, mood disorder, hypertension, peripheral neuropathy, urinary incontinence, mixed hyperlipidemia, cognitive dysfunction who presents to the emergency department for evaluation after a fall. Right intertrochanteric fracture due to fall: Unclear preceding events leading to fall due to underlying cognitive dysfunction. Mechanical versus other. B12/folate okay. ?ataxia on admission but MRI without acute CVA. s/p orif yesterday ortho following Acute UTI: Initiated IV ceftriaxone, 10/13 GERD: On famotidine Mood disorder: Resume lexapro once able to take PO Mixed HLD: On statin DVT prophylaxis: Mechanical Reason for continued hospitalization: Operative fixation of right hip orthopedic surgery Quality Stroke Does the patient have a stroke diagnosis?: No VTE Prior VTE?: No VTE Risk Level:: Medical - moderate - high VTE Device Contraindication: Treatment Not Indicated VTE Drug Contraindication: N/A - Med Ordered
[2024-10-14] MEDS: Lactated Ringers 1,000 ML 50 ML IVCONT (17:58)
[2024-10-14 19:29] VITALS: BP 139/60; PULSE 86; RESP 17; TEMP 36.5; O2SAT 99
[2024-10-14] MEDS: Topiramate 25 MG TABLET 50 MG PO (20:34)
[2024-10-14] MEDS: Chlorhexidine Gluc Oral Rinse 15 ML MOUTHWASH BUCCAL (20:34)
[2024-10-14] MEDS: Atorvastatin Calcium 10 MG TABLET PO (20:34)
[2024-10-15] VITALS (7 sets, daily range): BP systolic 131–166; BP diastolic 63–74; PULSE 75–97; RESP 16–18; TEMP 36.2–36.9; O2SAT 96–99
[2024-10-15] MEDS: Acetaminophen 1,000 MG/100 ML PIGGYBACK 400 MG IV (04:11)
[2024-10-15 06:08] LABS: Hematocrit 24.5 % (37.0-47.0); Hemoglobin 7.9 g/dl (12.0-16.0); Mean Corpuscular HGB Conc 32.2 g/dl (31.0-35.0); Mean Corpuscular Hemoglobin 28.7 pg (27.0-33.0); Mean Corpuscular Volume 89.1 fL (80.0-98.0); Mean Platelet Volume 9.8 fL (9.4-12.3); Platelet Count 237 X10*3/uL (160-400); Red Blood Count 2.75 X10*6/uL (4.20-5.50); Red Cell Distribution Width 16.8 % (11.0-16.0); White Blood Count 11.6 X10*3/uL (4.8-10.8)
[2024-10-15 06:19] LABS: Anion Gap 10 (12-20); Blood Urea Nitrogen 26 mg/dL (9-16); Calcium 7.8 mg/dL (8.4-10.2); Carbon Dioxide 17 mmol/L (22-29); Chloride 112 mmol/L (96-108); Creatinine Clr Calc Pharmacy 27.7; Estimated Glomerular Filt Rate 37; Glucose Random 97 mg/dL (60-115); Potassium 3.3 mmol/L (3.3-5.1); Sodium 136 mmol/L (135-145)
[2024-10-15] MEDS: cefTRIAXone sodium 1 GM VIAL IVPUSH (08:06)
[2024-10-15] MEDS: 0.9 % Sodium Chloride Flush 3 ML SYRINGE IVFLUSH (08:07)
[2024-10-15] MEDS: Morphine Sulfate 4 MG/ML CARTRIDGE IVPUSH (08:33)
--- NOTE | 2024-10-15 08:52 | PM.PNORT ---
Subjective Subjective Date of Service: 10/15/24 Interval history: POD2 s/p right hip IM Nail Patient is resting in bed comfortably No overnight events Pain is managed No additional complaints Physical Exam Vital Signs: Vital Signs: Last Vital Signs Temp 98.5 F 10/15/24 08:00 Pulse 97 10/15/24 08:00 Resp 18 10/15/24 08:00 BP 131/66 10/15/24 08:00 Pulse Ox 98 10/15/24 08:00 O2 Del Method Room Air 10/15/24 08:00 BMI result Body Mass Index 18.7 Const: General: cooperative, healthy appearing and no acute distress Resp: Effort & Inspection: normal respiratory effort and able to speak in complete sentences Cardio: Rate: regular rate Peripheral pulses: Peripheral pulses 2+ throughout GI: Palpation (GI): Soft to palpation Skin: Lesions: no lesions Rashes: no rashes Extrem: Other: right hip dressing is c/d/i. Able to dorsi/plantar flex. Calf is supple and nontender. Sensation intact. Pedal pulse intact. Procedures Date of Service Date of Service: 10/15/24 Progress Note: A&P Assessment and plan (1) Closed intertrochanteric fracture of right hip: Status: Acute Plan Continue pain mgmnt Continue ASA for dvt ppx begin PT/OT for right hip IM Nail Dispo planning- PT eval, pain mgmnt Time Spent With Patient Time: Total time managing care of this patient today ____ minutes. Quality Stroke Does the patient have a stroke diagnosis?: No VTE Prior VTE?: No VTE Risk Level:: Medical - moderate - high VTE Device Contraindication: Treatment Not Indicated VTE Drug Contraindication: N/A - Med Ordered
[2024-10-15] MEDS: Chlorhexidine Gluc Oral Rinse 15 ML MOUTHWASH BUCCAL (09:37)
[2024-10-15] MEDS: Famotidine 20 MG TABLET PO (09:37)
[2024-10-15] MEDS: Aspirin 325 MG TABLET PO (09:38)
[2024-10-15] MEDS: oxyBUTYnin chloride ER 5 MG TAB.ER.24 15 MG PO (09:38)
[2024-10-15] MEDS: Topiramate 25 MG TABLET 50 MG PO (09:38)
[2024-10-15] MEDS: Escitalopram Oxalate 20 MG TABLET PO (09:38)
--- NOTE | 2024-10-15 10:55 | MHC.CM.PN ---
Per MD medically cleared for dc to [facility]. [facility] has accepted and has auth. BLS transport booked for 4pm. RN, , patient and aware.
[2024-10-15] MEDS: Ferrous Sulfate 300 MG/5 ML LIQUID PO (11:57)
[2024-10-15] MEDS: Acetaminophen 325 MG TABLET 975 MG PO (11:57)
[2024-10-15] MEDS: diphenhydrAMINE HCL 25 MG CAPSULE PO (11:57)
--- NOTE | 2024-10-15 13:00 | PC.NURSE ---
Indwelling urinary catheter removed at 1230. Patient due to void by 1830. Device intact. Tolerated well. Karli-care provided.
--- NOTE | 2024-10-15 14:18 | PM.DS ---
DS: Providers Provider Date of Service: 10/15/24 Date of admission: 10/12/24 15:55 Date of discharge: 10/15/24 Primary care physician: Car Farmer MD Consults: 10/12/24 14:50 Consult to Orthopedics Stat Consulting Provider: Elliott Gutierrez Reason for consultation: right hip fracture Has provider been notified: Yes 10/12/24 15:57 Consult to Orthopedics Routine Consulting Provider: [facility] [place] [facility] Reason for consultation: Right hip fracture Has provider been notified: Yes Attending physician on discharge: Treasure Soto Discharging clinician: Treasure Soto DS: Diagnosis Discharge Diagnosis (1) Closed intertrochanteric fracture of right hip: Status: Acute DS: Summary Hospital Course Hospital Course: HPI:74-year-old female with pertinent history of right breast cancer status post lumpectomy /chemotherapy/radiation, gastroesophageal reflux disease, mood disorder, hypertension, peripheral neuropathy, urinary incontinence, mixed hyperlipidemia, cognitive dysfunction who presents to the emergency department for evaluation after a fall. Patient states while she was walking into an [employer] store, her right leg just gave out and she fell landing on her right side. Unclear if she hit her head. Also has been complaining of dizziness that has been ongoing, unclear duration. As per partner, patient likely has underlying cognitive dysfunction at baseline. Patient states she has had difficulty with balance that has been ongoing for unclear duration. No palpitations, loss of consciousness, jerking movement of extremities. Also complains of urinary incontinence but does have some urinary incontinence at baseline. No fever, chills, chest pain, shortness of breath, abdominal pain, changes in bowel habits. In the emergency department, imaging with right intertrochanteric fracture orthopedic surgery was consulted who requested admission to medicine team. Hospital course: 74-year-old female with pertinent history of right breast cancer status post lumpectomy /chemotherapy/radiation, gastroesophageal reflux disease, mood disorder, hypertension, peripheral neuropathy, urinary incontinence, mixed hyperlipidemia, cognitive dysfunction who presents to the emergency department for evaluation after a fall. Right intertrochanteric fracture due to fall: Status postright hip IM Nail : Pain is controlled,continue tylenol and oxycodone in rehab . acute blood loss on ch normocytic anemia :postop anemia : H&H is still around 8/24.5-given 1 PRBC because patient had surgery recent.Monitor CBC outpatient victor manuel on ckd improved with hydration:moniter bmp (has ckd).hold losartan until repeat bmp,consider outpatient nephrology eval. Her bicarb is chronically low-in [facility] record from it was around 19. will add bicarb po ,moniter bmp outpatient. uti : Urine culture grew E coli sensitive to ceftriaxone, Added Ceftin p.o. 250 mg b.i.d. moniter Blood pressure flactuating closely -may need antihypertensive outpatient. need to follow up with pcp outpatient.Need follow-up with ortho. fall -multifactorial(cognitive impairment, peripheral neuropathy, UTI, she has decondition from more than 2 years): Workup with CTA head and MRI negative, telemetry seems fine, no new symptoms. Orthostasis negative also.She also slowly getting better with PT. Discussed with the patient's -they will discuss outpatient with PCP in detail and if needed further workup outpatient. Consider outpatient neurology evaluation considering cognitive dysfunction. plan: ceftin 250 mg po [id number]. Monitor CBC outpatient-s/p1 prbc for postop anemia. victor manuel on ckd improved with hydration:moniter bmp (has ckd).hold losartan until repeat bmp,consider outpatient nephrology eval. moniter Blood pressure flactuating closely -may need antihypertensive outpatient. need to follow up with pcp outpatient. Need follow-up with ortho. Above management discussed with the patient in detail length as well as her -they both understand and in agreement with the above plan, time spent 40 min , all question answered, staff present during conversation. Time Attestation Total time managing care of this patient today: 40 mintues. Discharge Coordination Time (in mins): 40 min Quality: Safe Use of Opioids Does Pt have an Active Cancer Diagnosis on the Problem List?: No Quality: Stroke Does the patient have a stroke diagnosis?: No Physical Exam Vital Signs: Vital Signs: Last Vital Signs Temp 97.1 F 10/15/24 12:33 Pulse 80 10/15/24 12:33 Resp 18 10/15/24 12:33 BP 136/72 10/15/24 12:33 Pulse Ox 99 10/15/24 12:00 O2 Del Method Room Air 10/15/24 12:00 BMI result Body Mass Index 18.7 cvs: rrr, [id number] . res: clear to auscultation ,no rhonchii or wheezing abd: no rebound or guarding ,nt, bs present. ext pulses present , no cyanosis right hip soarness . neuro: nonfocal, calm,awake ,alert ( her baseline per her ) DS: Data Data Completed and Pending Labs on day of discharge: Laboratory Results - last 24 hr 10/13/24 10/15/24 12:55 05:52 WBC 11.6 H RBC 2.75 L Hgb 7.9 L Hct 24.5 L MCV 89.1 MCH 28.7 MCHC 32.2 RDW 16.8 H Plt Count 237 MPV 9.8 Absolute Nucleated RBC 0.000 Nucleated RBC % (auto) 0.0 Sodium 136 Potassium 3.3 Chloride 112 H Carbon Dioxide 17 L Anion Gap 10 L BUN 26 H Creatinine 1.41 H Estim Creat Clear Calc 27.7 Estimated GFR 37 Random Glucose 97 Calcium 7.8 L Blood Type B Positive Antibody Screen NEGATIVE Crossmatch See Detail Imaging Chest x-ray: Radiologist's impression: ITS Impressions Hip/Pelvis X-Ray 10/12/24 13:18 IMPRESSION: Moderate degenerative changes are present involving both SI joints, greater on the right. Moderate right and [id number] left hip degenerative joint disease with medial hip joint space narrowing. Cervical Spine CT 10/12/24 13:[address]: [address] evidence of acute cervical spine fracture or injury. 2. Moderate degenerative cervical spondylosis. Head CT 10/12/24 13:31 IMPRESSION: 1. No acute intracranial abnormality. No fracture evident. 2. Ancillary findings as discussed. Guidance Fluoroscopy 10/13/24 13:52 IMPRESSION: Fluoroscopy during procedure. Please see procedure report for additional information. Discharge Plan Discharge Anticipated Discharge Date/Time: 10/15/24 14:02 Patient Disposition: Xfer SNF Discharge Diagnosis: hip fracture ,ckd 3b,postop anemia Referrals: Pete Dunne PA [Physician Block Captain] - 10/29/24 9:00 am (10/29/24 at 9:30 with [facility]) Car Farmer MD [Primary Care Provider] - 1 Week Discharge Medications: New oxycodone 5 mg Tablet 5 mg PO Q6H PRN (Reason: Pain, Severe (Pain Scale 7-10)) Qty: 20 0RF Rx Instructions: Partial Fill upon patient request. aspirin 325 mg Tablet 325 mg PO BID Qty: 1 0RF cefuroxime axetil 250 mg Tablet 250 mg PO Q12H Qty: 10 0RF polyethylene glycol 3350 [Miralax] 17 gram/dose powder 17 g PO DAILY PRN (Reason: constipation) Qty: 119 0RF acetaminophen 325 mg Tablet 975 mg PO Q6H PRN (Reason: Pain, Moderate(Pain Scale 4-6)) Qty: 1 0RF sodium bicarbonate 650 mg Tablet 650 mg PO BID Qty: 10 0RF docusate sodium [Colace] 100 mg capsule 100 mg PO DAILY PRN (Reason: constipation) Qty: 1 0RF Continued anastrozole 1 mg tablet 1 mg PO DAILY oxybutynin chloride 15 mg tablet extended release 24hr 15 mg PO DAILY famotidine 20 mg tablet 20 mg PO BID rizatriptan 10 mg tablet,disintegrating 10 mg PO DAILY PRN (Reason: Migraine Headache) simvastatin 20 mg tablet 20 mg PO BEDTIME gabapentin 300 mg capsule 300 mg PO DAILY escitalopram oxalate 20 mg tablet 20 mg PO DAILY cyclobenzaprine 5 mg tablet 5 mg PO BEDTIME PRN (Reason: muscle spasm) topiramate 50 mg tablet 50 mg PO BID chlorhexidine gluconate 0.12 % mouthwash 15 ml BID Held losartan 50 mg tablet 50 mg PO DAILY Hold Instructions: Resume on 10/21/24. Discharge Orders: Discharge Order (Routine); Ordered 10/15/24 Ordered By: Treasure Soto Diet: Advance to usual diet Activity on Discharge: As tolerated Stand Alone Forms: Patient Portal Discharge page Print Language: Lao Activity Restrictions/Additional Instructions: Gait training, strengthening, ADLs Continue ASA for dvt ppx x6 weeks Keep dressing clean, dry and intact-no showering or tub baths Follow up with Orthopedics in 2 weeks Care Plan Goals: Monitor CBC outpatient-s/p1 prbc for postop anemia. victor manuel on ckd improved with hydration:moniter bmp (has ckd).hold losartan until repeat bmp,consider outpatient nephrology eval. moniter Blood pressure flactuating closely -may need antihypertensive outpatient. need to follow up with pcp outpatient. Need follow-up with ortho. Health Concerns: as above. Plan of Treatment: as above. Assessment: as above. Patient Instructions: Blood Transfusion Discharge Instructions
[2024-10-15] MEDS: cefuroxime axetiL 250 MG TABLET PO (15:08)
--- NOTE | 2024-10-15 16:45 | HO.SKINPHOTO ---
Location:Right Lateral Ankle Category: Abrasion Foam applied
== END 2024-10-15 16:30 | disposition skilled nursing facility (03) | DRG 481 ==
LOC: HO.ED 15:52 → HO.EDOVER 16:10 → HO.S3 19:17
PROVIDERS: Orthopaedic Surgery; Student in an Organized Health Care Education/Training Program; Admitting Provider Internal Medicine; Emergency Provider Emergency Medicine; PCP Internal Medicine; Visit Provider Internal Medicine
PROC: 0QS606Z Reposition Right Upper Femur with Intramedullary Internal Fixation Device, Open Approach (ICD-10-PCS; principal; 2024-10-13 13:30)
DX: S72.144A Nondisplaced intertrochanteric fracture of right femur, initial encounter for closed fracture (principal); D62 Acute posthemorrhagic anemia; N39.0 Urinary tract infection, site not specified; N17.9 Acute kidney failure, unspecified; F39 Unspecified mood [affective] disorder; C50.911 Malignant neoplasm of unspecified site of right female breast; K21.9 Gastro-esophageal reflux disease without esophagitis; G62.9 Polyneuropathy, unspecified; R33.9 Retention of urine, unspecified; B96.20 Unspecified Escherichia coli [E. coli] as the cause of diseases classified elsewhere; N18.32 Chronic kidney disease, stage 3b; D63.1 Anemia in chronic kidney disease; E78.2 Mixed hyperlipidemia; W19.XXXA Unspecified fall, initial encounter; Z79.811 Long term (current) use of aromatase inhibitors; Z79.899 Other long term (current) drug therapy
CPT/HCPCS: 36415; 70450; 70551; 72125; 73521; 80048; 80053; 81001; 82607; 82746; 85014; 85018; 85025; 85027; 86850; 86900; 86901; 86923; 87086; 87088; 87186; 93005; 97162; 97166; 97530; 97535; 99285; C1713; J0131; J0696; J0736; J1100; J2003; J2250; J2270; J2371; J2405; J2704; J2795; J3010; J7120; P9016

== ENCOUNTER → 2024-10-12 14:03 | Outpatient (BNV) | payer MEDICARE, SELFPAY | PROVIDERS: Emergency Provider Emergency Medicine; PCP Internal Medicine; Visit Provider Radiology Diagnostic Radiology | DX: R27.0 Ataxia, unspecified (principal); M47.812 Spondylosis without myelopathy or radiculopathy, cervical region; S09.90XA Unspecified injury of head, initial encounter; M16.0 Bilateral primary osteoarthritis of hip; W19.XXXA Unspecified fall, initial encounter | CPT/HCPCS: 70450; 70551; 72125; 73521 ==

== ENCOUNTER → 2024-10-12 14:03 | Outpatient (BNV) | payer MEDICARE, SELFPAY | PROVIDERS: Admitting Provider Internal Medicine; Emergency Provider Emergency Medicine; PCP Internal Medicine; Visit Provider Internal Medicine Cardiovascular Disease | DX: R53.1 Weakness (principal) | CPT/HCPCS: 93010 ==

== ENCOUNTER → 2024-10-12 15:55 | Outpatient (BNV) | payer MEDICARE, SELFPAY | PROVIDERS: Admitting Provider Internal Medicine; Emergency Provider Emergency Medicine; PCP Internal Medicine; Visit Provider Student in an Organized Health Care Education/Training Program | DX: S72.144A Nondisplaced intertrochanteric fracture of right femur, initial encounter for closed fracture (principal) | CPT/HCPCS: 99231; 99232 ==

== ENCOUNTER → 2024-10-12 15:55 | Outpatient (BNV) | payer MEDICARE, SELFPAY | PROVIDERS: Admitting Provider Internal Medicine; Emergency Provider Emergency Medicine; PCP Internal Medicine; Visit Provider Physician Assistant | DX: S72.144A Nondisplaced intertrochanteric fracture of right femur, initial encounter for closed fracture (principal) | CPT/HCPCS: 27245; 99024; 99223 ==

== ENCOUNTER 2024-10-29 09:20 | Outpatient (REF) | payer MEDICARE, SELFPAY ==
--- NOTE | ~2024-10-29 | XR_ITS ---
EXAMINATION: XR HIP, RIGHT CLINICAL INFORMATION: M25.551 - Pain in right hip COMPARISON: 10/12/2024. TECHNIQUE: Three views of the right hip. FINDINGS: There has been a recent ORIF of an intertrochanteric right hip fracture with intramedullary elan and femoral head compression screw. Hardware is intact, well seated, without complication evident. There has been mormon of anatomical alignment of the right hip joint. The left hip joint is normal in appearance. The pelvis is intact. Degenerative changes and scoliosis noted involving the lower lumbar spine. The sacrum is intact. There are mild SI joint degenerative changes. There are surgical skin clips along the lateral hip and proximal right leg. There are vascular calcifications in the soft tissues. XR/XR hip RT min 2V IMPRESSION: ORIF of right hip intertrochanteric fracture with mormon of anatomic alignment. No complication evident. Electronically signed by: Diego Wayne MD 10/29/2024 09:59 AM EDT
== END 2024-10-29 09:21 | disposition home or self-care (01) ==
LOC: HO.HOSX 09:20
PROVIDERS: PCP Internal Medicine
DX: S72.144D Nondisplaced intertrochanteric fracture of right femur, subsequent encounter for closed fracture with routine healing (principal)
CPT/HCPCS: 73502; 99212

== ENCOUNTER 2024-10-29 09:20 | Outpatient (AMB) | payer MEDICARE, SELFPAY ==
--- NOTE | 2024-10-29 09:45 | A.OFFVIS_ITS ---
Intake Visit Reasons: PO: Right hip IMN 10/13/24 Intake Note: Iliana is a 74 year old female who presents today for a post operative visit status ORIF of right hip intertrochanteric fracture with placement of a short gamma nail, DOS: 10/13/[address] Elliott Gutierrez. Patient reports she is having on and off pain. She continues to take her pain meds as needed. Allergies Penicillins Allergy (Unknown, Verified 10/29/24 09:54) Unknown HPI HPI PO: Right hip IMN 10/13/24 DR: Details: Iliana is a 74 year old female who presents today for a post operative visit status ORIF of right hip intertrochanteric fracture with placement of a short gamma nail, DOS: 10/13/[address] Elliott Gutierrez. Patient reports she is having on and off pain. She continues to take her pain meds as needed. No other acute complaints or concerns at this time. [facility] Medical History (Updated 10/23/24 @ 00:02 by Aakash Green) Hx of radiation therapy Chemotherapy management, encounter for History of chronic back pain Osteoporosis Hx of migraine headaches Hyperlipemia Depression Gastroesophageal reflux disease Mood disorder Breast cancer, right Hypertension Surgical History Hx of lumpectomy Hx of wisdom tooth extraction Hx of appendectomy Hx of total knee replacement Hx of colonoscopy Social History Household Members: Spouse Housing: House Do you presently have visiting nurse or other home services: No Unable to assess alcohol history related to: Unknown Patient Tobacco Use Status: Never used Tobacco service: No Review of Systems Const All systems reviewed & are unremarkable except as noted in HPI and below Physical Exam Vital Signs: Last Vital Signs Temp 98.5 F 10/15/24 08:00 Pulse 97 10/15/24 08:00 Resp 18 10/15/24 08:00 BP 131/66 10/15/24 08:00 Pulse Ox 98 10/15/24 08:00 O2 Del Method Room Air 10/15/24 08:00 BMI result Body Mass Index 18.7 Const General: cooperative, healthy appearing and no acute distress Resp Effort & Inspection: normal respiratory effort and able to speak in complete sentences Cardio Rate: regular rate Peripheral pulses: Peripheral pulses 2+ throughout GI Palpation (GI): Soft to palpation Skin Lesions: no lesions Rashes: no rashes Extrem Other: right hip dressing is c/d/i. When dressing is removed, incision is clean, dry, intact. Able to dorsi/plantar flex. Calf is supple and nontender. Sensation intact. Pedal pulse intact. Patient is able to ambulate without difficulty Results Reviewed Results Reviewed: X-rays obtained in the office today and independently reviewed by me, Pete Dunne PA-C, demonstrate surgically corrected fracture of right hip with all orthopedic hardware in place and in satisfactory clinical alignment. Assessment & Plan Assessment & Plan (1) Closed intertrochanteric fracture of right hip: Code(s): S72.141A - Displaced intertrochanteric fracture of right femur, initial encounter for closed fracture Category: Medical Qualifiers: Encounter type: initial encounter Fracture alignment: nondisplaced Qualified Code(s): S72.144A - Nondisplaced intertrochanteric fracture of right femur, initial encounter for closed fracture Plan 1. Status post IM nail of right hip DOS 10/13/2024 Patient appears to be recovering well postoperatively Patient is educated about the typical recovery course Continue working with physical therapy Continue anticoagulation Continue pain management Follow-up in 4 weeks with repeat x-rays for reassessment, sooner with any acute concerns Orders: Orders XR hip RT min 2V 10/29/24 M25.551 - Pain in right hip PT Evaluation and Treatment 10/29/24 S72.144A - Nondisplaced intertrochanteric fracture of right femur, initial encounter for closed fracture Coding Level of Care Code Global (59918) Diagnoses Closed intertrochanteric fracture of right hip S72.144A Encounter type: initial encounter Fracture alignment: nondisplaced
--- OUTSIDE RECORDS SUMMARY | 2024-10-29 10:16 | XMS_ITS | Patient Health Record ---
Author Organization [facility] Address [address] [place] [address] Care Team Providers Care Crimper Assembler Name Role Phone Eleno Melendez MD Unavailable [...] weeks on and 1 week off Transdermal [id number] Active Losartan Potassium 100 MG take 1 [...] Coverage End Date [employer] Medicare [address] [place] [address] [id number] Iliana Kenyon Self - patient is the insured 9 [employer] Choice POS [address] [address] [place] [address] [id number] Iliana Kenyon Self - patient is the insured 6 9 Medical (General) History Surgical History Surgery Date(Month/Year) Appendectomy; 12/26/2009 Colonoscopy; 07/08/2019 Cyst; 12/26/2009 Hysterectomy / Unknown; 12/26/2009 Uvulopalatopharyngoplasty; 07/08/2019
== END 2024-10-29 10:24 | disposition home or self-care (01) ==
LOC: HO.HOS 09:21
PROVIDERS: PCP Internal Medicine
DX: S72.144A Nondisplaced intertrochanteric fracture of right femur, initial encounter for closed fracture (principal)
CPT/HCPCS: 99024

== ENCOUNTER → 2024-10-29 09:33 | Outpatient (BNV) | payer MEDICARE, SELFPAY | PROVIDERS: PCP Internal Medicine; Visit Provider Radiology Diagnostic Radiology | DX: S72.141D Displaced intertrochanteric fracture of right femur, subsequent encounter for closed fracture with routine healing (principal) | CPT/HCPCS: 73502 ==

== ENCOUNTER 2024-11-27 08:32 | Outpatient (REF) | payer MEDICARE, SELFPAY ==
--- NOTE | ~2024-11-27 | XR_ITS ---
EXAMINATION: XR HIP 2 OR MORE VIEWS RIGHT HISTORY: M25.551 - Pain in right hip COMPARISON: Comparison is made with the prior examination dated 10/29/2024. FINDINGS: Two views of the right hip are submitted. Osseous mineralization is normal. The patient is again noted to be status post internal fixation of intertrochanteric fracture with a compression screw and intramedullary elan. The fracture line remains visible. There is no displacement of the tip of the greater trochanter which likely represents a new avulsion injury. The joint space is maintained. The soft tissues are unremarkable. XR/XR hip RT min 2V IMPRESSION: Internal fixation of an intertrochanteric fracture of the right hip. Probable new avulsion of the tip of the greater trochanter.. Electronically signed by: Ion Roberts MD 11/27/2024 10:31 AM EDT
--- OUTSIDE RECORDS SUMMARY | 2024-11-27 08:45 | XMS_ITS | Patient Health Record ---
Author Organization [facility] Address [address] [place] [address] Care Team Providers Care Senior Accounts Payable Specialist Name Role Phone Eleno Melendez MD Unavailable [...] weeks on and 1 week off Transdermal [id number] Active Losartan Potassium 100 MG take 1 [...] Coverage End Date [employer] Medicare [address] [place] [address] [id number] Iliana Kenyon Self - patient is the insured 9 [employer] Choice POS [address] [address] [place] [address] [id number] Iliana Kenyon Self - patient is the insured 6 9 Medical (General) History Surgical History Surgery Date(Month/Year) Appendectomy; 12/26/2009 Colonoscopy; 07/08/2019 Cyst; 12/26/2009 Hysterectomy / Unknown; 12/26/2009 Uvulopalatopharyngoplasty; 07/08/2019
== END 2024-11-27 08:33 | disposition home or self-care (01) ==
LOC: HO.HOSX 08:32
DX: S72.144A Nondisplaced intertrochanteric fracture of right femur, initial encounter for closed fracture (principal); M25.551 Pain in right hip; Z79.01 Long term (current) use of anticoagulants; X58.XXXA Exposure to other specified factors, initial encounter
CPT/HCPCS: 73502; 99212

== ENCOUNTER 2024-11-27 09:58 | Outpatient (AMB) | payer MEDICARE, SELFPAY ==
--- NOTE | 2024-11-27 10:28 | MHC.OFFVIS ---
Vital Signs 11/27/24 10:30 Height 5 ft 4 in Weight 107 lb BMI 18.4 Intake Visit Reasons: PO: Right hip IMN 10/13/24 DR-w/xray Intake Note: Iliana is a 74 year old female who presents today for a Post Operative follow up s/p Right Hip IMN 10/13/24. States she was doing well until 1 week ago. States she took a wrong step and felt increased pain. She has been trying to rest and is feeling better. States she continues to do therapy. Allergies Penicillins Allergy (Unknown, Verified 11/27/24 10:30) Unknown HPI HPI PO: Right hip IMN 10/13/24 DR-w/xray: Details: Iliana is a 74 year old female who presents today for a Post Operative follow up s/p Right Hip IMN 10/13/24. States she was doing well until 1 week ago. States she took a wrong step and felt increased pain in the right knee, but this has been steadily improving since that time. She has been trying to rest and is feeling better. States she continues to do therapy. [facility] Medical History (Updated 10/23/24 @ 00:02 by Aakash Green) Hx of radiation therapy Chemotherapy management, encounter for History of chronic back pain Osteoporosis Hx of migraine headaches Hyperlipemia Depression Gastroesophageal reflux disease Mood disorder Breast cancer, right Hypertension Surgical History Hx of lumpectomy Hx of wisdom tooth extraction Hx of appendectomy Hx of total knee replacement Hx of colonoscopy Social History Household Members: Spouse Housing: House Do you presently have visiting nurse or other home services: No Unable to assess alcohol history related to: Unknown Patient Tobacco Use Status: Never used Tobacco service: No Review of Systems Const All systems reviewed & are unremarkable except as noted in HPI and below Physical Exam Vital Signs: BMI result Body Mass Index 18.4 Last Vital Signs Temp 98.5 F 10/15/24 08:00 Pulse 97 10/15/24 08:00 Resp 18 10/15/24 08:00 BP 131/66 10/15/24 08:00 Pulse Ox 98 10/15/24 08:00 O2 Del Method Room Air 10/15/24 08:00 BMI result Body Mass Index 18.7 Const General: cooperative, healthy appearing and no acute distress Resp Effort & Inspection: normal respiratory effort and able to speak in complete sentences Cardio Rate: regular rate Peripheral pulses: Peripheral pulses 2+ throughout GI Palpation (GI): Soft to palpation Skin Lesions: no lesions Rashes: no rashes Extrem Other: incision is clean, dry, intact. Able to dorsi/plantar flex. Calf is supple and nontender. Sensation intact. Pedal pulse intact. Patient is able to ambulate without difficulty Assessment & Plan Assessment & Plan (1) Closed intertrochanteric fracture of right hip: Code(s): S72.141A - Displaced intertrochanteric fracture of right femur, initial encounter for closed fracture Category: Medical Qualifiers: Encounter type: initial encounter Fracture alignment: nondisplaced Qualified Code(s): S72.144A - Nondisplaced intertrochanteric fracture of right femur, initial encounter for closed fracture Plan 1. Status post IM nail of right hip DOS 10/13/2024 Patient appears to be recovering well postoperatively Patient is educated about the typical recovery course Continue working with physical therapy Continue anticoagulation until done with 6 weeks of therapy Continue pain management Follow-up in 6 weeks with repeat x-rays for reassessment, sooner with any acute concerns Orders: Orders XR hip RT min 2V Today M25.551 - Pain in right hip Coding Level of Care Code Global (62691) Diagnoses Closed intertrochanteric fracture of right hip S72.144A Encounter type: initial encounter Fracture alignment: nondisplaced
[2024-11-27 10:30] VITALS: BMI 18.4
== END 2024-11-27 10:44 | disposition home or self-care (01) ==
LOC: HO.HOS 09:59
PROVIDERS: PCP Internal Medicine
DX: S72.144A Nondisplaced intertrochanteric fracture of right femur, initial encounter for closed fracture (principal)
CPT/HCPCS: 99024

== ENCOUNTER → 2024-11-27 10:07 | Outpatient (BNV) | payer MEDICARE, SELFPAY | PROVIDERS: Visit Provider Radiology Diagnostic Radiology | DX: M25.551 Pain in right hip (principal) | CPT/HCPCS: 73502 ==

== ENCOUNTER 2025-01-06 08:08 | Outpatient (REF) | payer MEDICARE, SELFPAY ==
--- NOTE | ~2025-01-06 | XR_ITS ---
EXAMINATION: XR HIP, RIGHT CLINICAL INFORMATION: M25.551 - Pain in right hip, follow-up fracture COMPARISON: November 27, 2024 and October 12, 2024 TECHNIQUE: AP pelvis, AP and frog-leg lateral views of the right hip. FINDINGS: ORIF has been performed. There is a short intramedullary nail with distal interlocking screw and a lag screw across the intertrochanteric fracture. The greater trochanter is fragmented and medially distracted to the region cephalad to the femoral neck. There is increasing heterotopic ossification cephalad to the greater trochanteric fragments. There is good opposition across the intertrochanteric fracture. Left hip joint demonstrates mild axial joint space narrowing. Mild degenerative changes are noted in the visualized bilateral SI joints. XR/XR hip RT min 2V IMPRESSION: Right intertrochanteric fracture status post ORIF with increased density of heterotopic ossification cephalad to medially distracted greater trochanter fragments. Mild degenerative changes of the SI joints. Mild degenerative changes of the left hip joint. Electronically signed by: John Mosher MD 01/06/2025 11:20 AM EDT
--- OUTSIDE RECORDS SUMMARY | 2025-01-06 08:38 | XMS_ITS | Patient Health Record ---
Author Organization [facility] Address [address] [place] [address] Care Team Providers Care Barge Loader Name Role Phone Eleno Melendez MD Unavailable [...] weeks on and 1 week off Transdermal [id number] Active Losartan Potassium 100 MG take 1 [...] Coverage End Date [employer] Medicare [address] [place] [address] [id number] Iliana Kenyon Self - patient is the insured 9 [employer] Choice POS [address] [address] [place] [address] [id number] Iliana Kenyon Self - patient is the insured 6 9 Medical (General) History Surgical History Surgery Date(Month/Year) Appendectomy; 12/26/2009 Colonoscopy; 07/08/2019 Cyst; 12/26/2009 Hysterectomy / Unknown; 12/26/2009 Uvulopalatopharyngoplasty; 07/08/2019
== END 2025-01-06 08:09 | disposition home or self-care (01) ==
LOC: HO.HOSX 08:08
DX: S72.144D Nondisplaced intertrochanteric fracture of right femur, subsequent encounter for closed fracture with routine healing (principal); X58.XXXD Exposure to other specified factors, subsequent encounter
CPT/HCPCS: 73502; 99212

== ENCOUNTER 2025-01-06 10:57 | Outpatient (AMB) | payer MEDICARE, SELFPAY ==
--- OUTSIDE RECORDS SUMMARY | 2013-01-22 | XMS_ITS | Encounter Summary ---
Author Organization [facility] Address [address] [facility] [address] [place] [phone] Phone Care Team Providers Care Cable Stretcher And Tester Name Role Phone Unavailable Primary Care Provider Unavailabl e Encounter Details Date Type Department Care Team (Late st Contact Info) Description 01/22/2013 Hospital Encounter [facility],Outside Imaging [address] [place], [place] [phone] Unknown, Unknown, Social History Tobacco Use Types [...] Care Team (Late st Contact Info) Description 02/08/2025 3:20 PM EDT Office Visit [facility] at [address] [address] Souleymane Gonsalez MBBS [address] [place] [phone] [email or web address] 02/23/2025 11:50 AM EDT Office Visit [facility] [address] [place] [address] Dario Maldonado [address] [address] 05/04/2025 2:15 PM EST Appointment [facility], Bone Density - [address] [address] Dario Maldonado [address] [address] DX Urgent documented as of this encounter Procedures Procedure [...] It is not the complete legal health record.[facility]
--- NOTE | 2025-01-06 11:00 | MHC.OFFVIS ---
Intake Visit Reasons: PO: Right hip IMN 10/13/24 Ravi/nathalie Intake Note: Iliana is a 74 year old female who presents today for a post-operatively status post Right Hip IMN, DOS: 10/13/[address] Gutierrez. On 11/27/24 she was advised to continue working with physical therapy and to continue anticoagulation until done with 6 weeks of therapy. Patient reports she is doing outpatient therapy at [facility]. She reports she has not been able to tell if she has improvmeent due to her having one session done. She states she is doing home exercises very carefully and this is going well. She states she has pain in the hip at night, says she tries to pad her bad as much as possible to avoid this. Reports increase in pain with ambulation. Allergies Penicillins Allergy (Unknown, Verified 01/06/25 11:10) Unknown HPI HPI PO: Right hip IMN 10/13/24 Ravi/xray: Details: Iliana is a 74 year old female who presents today for a post-operatively status post Right Hip IMN, DOS: 10/13/[address] Gutierrez. On 11/27/24 she was advised to continue working with physical therapy and to continue anticoagulation until done with 6 weeks of therapy. Patient reports she is doing outpatient therapy at [facility]. She reports she has not been able to tell if she has improvmeent due to her having one session done. She states she is doing home exercises very carefully and this is going well. Patient reports that overall her pain has improved very significantly since previous evaluation. She states she has pain in the hip at night, says she tries to pad her bad as much as possible to avoid this. Reports increase in pain with ambulation. [facility] Medical History Hx of radiation therapy Chemotherapy management, encounter for History of chronic back pain Osteoporosis Hx of migraine headaches Hyperlipemia Depression Gastroesophageal reflux disease Mood disorder Breast cancer, right Hypertension Surgical History Hx of lumpectomy Hx of wisdom tooth extraction Hx of appendectomy Hx of total knee replacement Hx of colonoscopy Social History Household Members: Spouse Housing: House Do you presently have visiting nurse or other home services: No Unable to assess alcohol history related to: Unknown Patient Tobacco Use Status: Never used Tobacco service: No Current occupational status: retired Review of Systems Const All systems reviewed & are unremarkable except as noted in HPI and below Physical Exam Vital Signs: Last Vital Signs Temp 98.5 F 10/15/24 08:00 Pulse 97 10/15/24 08:00 Resp 18 10/15/24 08:00 BP 131/66 10/15/24 08:00 Pulse Ox 98 10/15/24 08:00 O2 Del Method Room Air 10/15/24 08:00 BMI result Body Mass Index 18.7 Const General: cooperative, healthy appearing and no acute distress Resp Effort & Inspection: normal respiratory effort and able to speak in complete sentences Cardio Rate: regular rate Peripheral pulses: Peripheral pulses 2+ throughout GI Palpation (GI): Soft to palpation Skin Lesions: no lesions Rashes: no rashes Extrem Other: incision is clean, dry, intact, well healed. Able to dorsi/plantar flex. Calf is supple and nontender. Sensation intact. Pedal pulse intact. Patient is able to flex the right hip to approximately 120 degrees while seated without difficulty. Patient is able to ambulate without difficulty with a walker, nonantalgic gait noted. Of note, patient does walk with a cane at baseline Results Reviewed Results Reviewed: X-rays obtained in the office today and independently reviewed by me, Pete Dunne PA-C, demonstrate surgically corrected fracture of right hip with all orthopedic hardware in place and in satisfactory clinical alignment with evidence of interval bony healing. Assessment & Plan Assessment & Plan (1) Closed intertrochanteric fracture of right hip: Code(s): S72.141A - Displaced intertrochanteric fracture of right femur, initial encounter for closed fracture Category: Medical Qualifiers: Encounter type: initial encounter Fracture alignment: nondisplaced Qualified Code(s): S72.144A - Nondisplaced intertrochanteric fracture of right femur, initial encounter for closed fracture Plan 1. Status post IM nail of right hip DOS 10/13/2024 Patient appears to be recovering well postoperatively Patient is educated about the typical recovery course Continue working with physical therapy Patient is educated that I feel it is reasonable at this time for her to begin working with PT to move from walking with a walker back to her baseline which is walking with a cane. Continue pain management Follow-up in 3 months with repeat x-rays for reassessment, sooner with any acute concerns Orders: Orders XR hip RT min 2V 01/06/25 M25.551 - Pain in right hip Coding Level of Care Code Global (76151) Diagnoses Closed intertrochanteric fracture of right hip S72.144A Encounter type: initial encounter Fracture alignment: nondisplaced
--- OUTSIDE RECORDS SUMMARY | 2025-01-06 13:09 | XMS_ITS | Encounter Summary ---
Author Organization [facility] Address [address] [facility] [address] [address] [place] [address] Phone Care Team Providers Care Senior Linux Systems Administrator Name Role Phone Car Farmer MD Primary Care Provider + Souleymane Gonsalez MBBS Unavailable [phone] Encounter Details Date Type Department Care Team (Late st Contact Info) Description 02/13/2024 Procedure Pass [facility] - [address] [place] [address] Social History Tobacco Use Types Packs/Day Years [...] with a working camera? Not on file Comments No Sex and Gender Information Value Date Recorded Sex Assigned at Not on file Legal Sex Female 1:01 PM EDT Gender Identity Not on file Sexual Orientation Straight 03/08/2023 11 :48 AM EDT documented as of this encounter Plan of Treatment Upcoming Encounters Date Type Department Care Team (Late st Contact Info) Description 02/08/2025 3:20 PM EDT Office Visit [facility] at [address] [address] Souleymane Gonsalez MBBS [address] [place] [address] [email or web address] 02/23/2025 11:50 AM EDT Office Visit [facility] [address] [place] [address] Dario Maldonado, DO [address] [place] [address] 05/04/2025 2:15 PM EST Appointment [facility] - [address] [address] Dario Maldonado [address] [address] [email or web address] documented as of this encounter Visit Diagnoses Not on filedocumented in this encounter Additional Health Concerns Infection Onset Date Last Indicated Resolved Time CoV-Risk 05/09/2024 05/09/2024 05/20/2024 1:21 AM EST documented as of this encounter Care Teams Senior Linux Systems Administrator Relationship Specialty Start Date End Date Car Farmer MD [address] [place] [address] [email or web address] PCP - General Internal Medicine 03/05/23 Souleymane Gonsalez MBBS [address] [place] [address] [email or web address] Medical Oncology 03/15/23 documented as of this encounter Additional Source Comments The information contained in this document represents components of the legal health record. It is not the complete legal health record.[facility]
--- OUTSIDE RECORDS SUMMARY | 2025-01-06 13:09 | XMS_ITS | Encounter Summary ---
Author Organization [facility] Address [address] [place] [address] Phone Care Team Providers Care Ems Instructor Name Role Phone Car Farmer MD Primary Care Provider + Souleymane Gonsalez MB Unavailable [phone] Reason for Referral * MRI/CAT Scan - Closed Specialty Diagnoses / Procedures Referred By Maria Ines moya Referred To Contact Radiology Diagnoses Weight loss Procedures CT Abdomen/Pelvis CHG CT SCAN,ABDOMENT AND PELVIS,W CONTRAST Brodie Flores MD Phone: tel: fax: [email or web address] Referral ID Status Reason Start Date Expiration Date Visits Re quested Visits Authorized [id number] Closed 08/17/2024 02/13/2025 1 1 Encounter Details Date Type Department Care Team (Latest Contact Info) Description 08/11/2024 Transcribe Orders Virtual Department [address] [place] [address] Brodie Flores MD [address] [place] [address] [email or web address] Weight loss (Primary Dx) Social History Tobacco Use Types Packs/Day Years [...] Description 02/08/2025 3:20 PM EDT Office Visit [facility] [address] [place] [address] Souleymane Gonsalez, LAURA [address] [place] [address] [email or web address] 02/23/2025 11:50 AM EDT Office Visit [facility] [address] [place] [address] [place] [address] 05/04/2025 2:15 PM EST Appointment [facility] - [facility] [address] [place] [address] JoelDario DO [address] [place] [address] [email or web address] documented as of this encounter Results * CT ABDOMEN/PELVIS WITH CONTRAST (08/25/2024 1:30 PM EDT) Anatomical Region Laterality Modality Abdomen, Pelvis Computed Tomogra phy 08/26/2024 11:4 4 AM EDT Impressions 08/26/2024 11:59 AM EDT 1. No acute process in the abdomen or pelvis. 2. Small hiatal hernia. Narrative 08/26/2024 11:[address] ABDOMEN/PELVIS WITH CONTRAST Referring clinician's provided indication for this examination in Epic: Outside Radiology Order; weight loss TECHNIQUE: Multidetector-row CT of the abdomen and pelvis was performed after administration of intravenous contrast using tailored dose modulation techniques. Images were reconstructed in the axial, coronal, and sagittal planes. COMPARISON: None FINDINGS: Lower Chest: Small hiatal hernia. No consolidation or pleural effusions. Liver: Multiple subcentimeter hypodense lesions are too small to characterize but probably representing cysts. Biliary: No biliary ductal dilatation. Spleen: No splenomegaly or focal lesions. Pancreas: No masses or ductal dilatation. Adrenal Glands: No nodules. Kidneys/Ureters: Bilateral renal cysts. Focus of punctate calcification in the right interpolar region (3:21). No solid masses, stones, or hydronephrosis. Bowel: No distention or wall thickening. Peritoneum/Retroperitoneum: No masses, pneumoperitoneum, or fluid. Lymph Nodes: No lymphadenopathy. Pelvic Organs/Bladder: Prior hysterectomy. Vessels: There is atherosclerotic calcification of the aorta and branch vessels. No abdominal aortic aneurysm. Bones/Soft Tissues: Levorotoscoliosis of the lumbar spine with multilevel degenerative changes. Tiny fat-containing umbilical hernia Procedure Note Arabella Hankins MD, MPH - 08/26/2024 CT ABDOMEN/PELVIS WITH CONTRAST Referring clinician's provided indication for this examination in Epic:Outside Radiology Order; weight loss TECHNIQUE: Multidetector-row CT of the abdomen and pelvis was performedafter administration of intravenous contrast using tailored dosemodulation techniques. Images were reconstructed in the axial, coronal,and sagittal planes. COMPARISON: None FINDINGS: Lower Chest: Small hiatal hernia. No consolidation or pleural effusions. Liver: Multiple subcentimeter hypodense lesions are too small tocharacterize but probably representing cysts. Biliary: No biliary ductal dilatation. Spleen: No splenomegaly or focal lesions. Pancreas: No masses or ductal dilatation. Adrenal Glands: No nodules. Kidneys/Ureters: Bilateral renal cysts. Focus of punctate calcification inthe right interpolar region (3:21). No solid masses, stones, orhydronephrosis. Bowel: No distention or wall thickening. Peritoneum/Retroperitoneum: No masses, pneumoperitoneum, or fluid. Lymph Nodes: No lymphadenopathy. Pelvic Organs/Bladder: Prior hysterectomy. Vessels: There is atherosclerotic calcification of the aorta and branchvessels. No abdominal aortic aneurysm. Bones/Soft Tissues: Levorotoscoliosis of the lumbar spine with multileveldegenerative changes. Tiny fat-containing umbilical hernia IMPRESSION: 1. No acute process in the abdomen or pelvis. 2. Small hiatal hernia. Brodie Flores MD IMG CT ABD/PELVIS Final Resu lt documented in this encounter Visit Diagnoses Diagnosis Weight loss- Primary Loss of weight Weight loss Loss of weight documented in this encounter Care Teams Ems Instructor Relationship Specialty Start Date End Date Car Farmer MD [address] [place] [address] [email or web address] PCP - General Internal Medicine 03/05/23 Souleymane Gonsalez MBBS [address] [place] [address] [email or web address] Medical Oncology 03/15/23 documented as of this encounter Additional Source Comments The information contained in this document represents components of the legal health record. It is not the complete legal health record.[facility]
--- OUTSIDE RECORDS SUMMARY | 2025-01-06 13:09 | XMS_ITS | Encounter Summary ---
Author Organization [facility] Address [address] [facility] [address] [place] [address] Phone Care Team Providers Care Retirement Consultant Name Role Phone Car Farmer MD Primary Care Provider + Souleymane Gonsalez MBBS Unavailable [phone] Encounter Details Date Type Department Care Team (Late st Contact Info) Description 08/11/2024 Procedure Pass [facility], Ct Scan - [facility] [address] [place] [address] Social History Tobacco Use Types Packs/Day Years [...] Description 02/08/2025 3:20 PM EDT Office Visit [facility] at [address] [address] Souleymane Gonsalez MBBS [address] [place] [address] [email or web address] 02/23/2025 11:50 AM EDT Office Visit [facility] [address] [place] [address] Dario Maldonado [address] [address] 05/04/2025 2:15 PM EST Appointment [facility] [address] [address] Dario Maldonado [address] [address] documented as of this encounter Visit Diagnoses Not on filedocumented in this encounter Care Teams Retirement Consultant Relationship Specialty Start Date End Date Car Farmer MD [address] [place] [id number] [email or web address] PCP - General Internal Medicine 03/05/23 Souleymane Gonsalez MBBS [address] [place] [address] [email or web address] Medical Oncology 03/15/23 documented as of this encounter Additional Source Comments The information contained in this document represents components of the legal health record. It is not the complete legal health record.[facility]
--- OUTSIDE RECORDS SUMMARY | 2025-01-06 13:09 | XMS_ITS | Encounter Summary ---
Author Organization [facility] Address [address] [place] [address] [place] [phone] Phone Care Team Providers Care [facility] Field Coordinator Name Role Phone Car Farmer MD Primary Care Provider + Souleymane Gonsalez MBBS Unavailable [phone] Encounter Details Date Type Department Care Team (Late st Contact Info) Description 04/16/2023 Procedure Pass [facility] - [address] [place] [address] Social History Tobacco Use Types Packs/Day Years Used Date Smoking Tobacco: Never Smokeless Tobacco: Never Alcohol Use Standard [...] Description 02/08/2025 3:20 PM EDT Office Visit [facility] at [address] [address] Souleymane Gonsalez MBBS [address] [place] [phone] [email or web address] 02/23/2025 11:50 AM EDT Office Visit [facility] [address] [place] [phone] Dario Maldonado, DO [address] [place] [phone] 05/04/2025 2:15 PM EST Appointment [facility], Bone Density - [address] [address] Dario Maldonado [address] [address] [email or web address] documented as of this encounter Visit Diagnoses Not on filedocumented in this encounter Additional Health Concerns Infection Onset Date Last Indicated Resolved Time CoV-Risk 05/09/2024 05/09/2024 05/20/2024 1:21 AM EST documented as of this encounter Care Teams Forest Practices Field Coordinator Relationship Specialty Start Date End Date Car Farmer MD [address] [place] [phone] [email or web address] PCP - General Internal Medicine 03/05/23 Souleymane Gonsalez MBBS [address] [place] [address] [email or web address] Medical Oncology 03/15/23 documented as of this encounter Additional Source Comments The information contained in this document represents components of the legal health record. It is not the complete legal health record.[facility]
--- OUTSIDE RECORDS SUMMARY | 2025-01-06 13:09 | XMS_ITS | Encounter Summary ---
Author Organization [facility] Address [address] [facility] [address] [place] [phone] Phone Care Team Providers Care Life Science Taxonomist Name Role Phone Car Farmer MD Primary Care Provider + Souleymane Gonsalez MBBS Unavailable [phone] Encounter Details Date Type Department Care Team (Late st Contact Info) Description 07/10/2024 Procedure Pass [facility] Admitting Dept Virtual Department [address] [place] [address] Social History Tobacco Use Types Packs/Day Years [...] Description 02/08/2025 3:20 PM EDT Office Visit [facility] at [address] [address] Souleymane Gonsalez MBBS [address] [place] [phone] [email or web address] 02/23/2025 11:50 AM EDT Office Visit [facility] [address] [place] [phone] Dario Maldonado [address] [address] 05/04/2025 2:15 PM EST Appointment [facility], Bone [address] [address] Dario Maldonado [address] [address] [employer] documented as of this encounter Visit Diagnoses Not on filedocumented in this encounter Care Teams Life Science Taxonomist Relationship Specialty Start Date End Date Car Farmer MD [address] [place] [phone] [email or web address] PCP - General Internal Medicine 03/05/23 Souleymane Gonsalez MBBS [address] [place] [phone] [email or web address] Medical [email or web address] 03/15/23 documented as of this encounter Additional Source Comments The information contained in this document represents components of the legal health record. It is not the complete legal health record.[facility]
--- OUTSIDE RECORDS SUMMARY | 2025-01-06 13:09 | XMS_ITS | Clinical Summary ---
Author Organization [facility] Address [address] [place] [phone] Phone Care Team Providers Care Safety Glass Installer Name Role Phone Car Farmer MD Primary Care Provider + Souleymane Gonsalez MBBS Unavailable [phone] Allergies Active Allergy Reactions Criticality Noted Date Comments Penicillins Diarrhea,Itching,Garo sea Only High 06/05/2013 Diarrhea and nausea after PCN at age 21 Medications oxyBUTYnin (DITROPAN XL) 15 MG 24 hr tablet Take 1 tablet by mouth every morning. 3 Active losartan (COZAAR) 50 MG tablet Take 1 tablet by mouth every morning. 3 Active simvastatin (ZOCOR) 20 MG tablet Take 1 tablet by mouth daily. 3 Active topiramate (TOPAMAX) 25 MG tablet Take 50 mg by mouth 2 (two) times a day. Active esomeprazole (NEXIUM) 20 MG capsule Take 20 mg by mouth. Active rizatriptan (MAXALT-SUPPLIER SPECIALIST) 10 MG disintegrating tablet 10 mg by oral route. 2 Active traMADoL (ULTRAM) 50 mg tabletIndications:M alignant neoplasm of upper-outer quadrant of right breast in female, estrogen receptor positive,Pain management Take 1 tablet (50 mg total) by mouth every 8 (eight) hours as needed for pain (specific location in comments). 60 tablet 5 Active anastrozole (ARIMIDEX) 1 mg tabletIndications:M alignant neoplasm of upper-outer quadrant of right breast in female, estrogen receptor positive Take 1 tablet (1 mg total) by mouth daily. 90 tablet 3 5 Active escitalopram oxalate (LEXAPRO) 20 MG tablet TAKE 1 TABLET BY MOUTH EVERY DAY 90 tablet 3 5 Active gabapentin (NEURONTIN) 300 MG capsuleIndications: Malignant neoplasm of upper-outer quadrant of right breast in female, estrogen receptor positive TAKE 1 CAPSULE BY MOUTH EVERY DAY 30 capsule 6 5 Active Active Problems Problem Noted Date Diagnosed Date Other osteoporosis without current pathological fracture 10/02/2023 Assessment & Plan (01/08/2024 2:59 PM EDT): In addition to the risk factors indicated above I found that the patient is not a getting adequate calcium intake or is not absorbing it properly. So I have asked her to take calcium citrate. In fact I asked her to get Citracal max and to take 1 tablet twice a day with food. Since the last visit her GFR has decreased. Previously GFR was 43 and now it is 34 mL/min so this is a contraindication to using zoledronic acid because it can cause renal tubular acidosis and resulting progression of renal failure. So even though in my last visit I said that zoledronic acid will be a better option than Prolia because her bone mineral density is worse at the hips and the Prolia is more effective at the spine not so much at the hips, despite this, she will be better served with the use of Prolia because Prolia will not cause renal damage. Furthermore she can use this medication for period of 10 years or more. I have asked my medical tech to obtain Prolia prior authorization. In the meantime she can start taking calcium because without calcium the medication will not work. I asked the patient to contact this office if she does not hear from us within 2 weeks time. She should get Prolia ministration with the nurse and I should see her in approximately in a years time. I have requested comprehensive and CTX for follow-up visit in 1 year. Assessment & Plan (10/02/2023 2:54 PM EDT): The patient was diagnosed with osteoporosis on 05/01/2023. However it is possible that she had osteoporosis prior to the study. Previous DXA scan studies done only measured the spine at the hips. She has multiple risk factors for osteoporosis including menopause, age, use of proton pump inhibitors, corticosteroids, antiepileptic medications gabapentin/topiramate, cytotoxic agents, SSRIs, and aromatase inhibitors which she is currently using. She has lost 3 inches in height but has not had any fractures. Currently taking calcium 600 mg daily and she believes she is on vitamin D supplements. She has had radiation therapy so she is not a candidate for anabolic, such as Forteo and Tymlos. Her GFR is down to 41 mL/min. She can still use antiresorptive medication such as zoledronic acid. She cannot tolerate the oral bisphosphonate as it makes her dizzy. Denosumab a rank ligand antagonist is very good for spine bone mineral density but is not helpful for the hips. Unfortunately her hips is where she has osteoporosis so using denosumab will not be beneficial. So if it appears that the only options she has for management is zoledronic acid infusions. At this point I would like to give the patient information on the potential adverse effects of zoledronic acid. If she agrees to take this medication for management of osteoporosis this will be done at the infusion center in the hospital. In the meantime I will request biochemical workup for secondary causes of osteoporosis. This includes 24-hour urine studies and PTH. I will also obtain baseline CTX level which is a bone resorption marker. Age-related osteoporosis wit hout current pathological fracture 05/08/2023 Malignant neoplasm of upper- outer quadrant of right breast in female, estrogen receptor positive 04/18/2023 Cancer Staging:Pathologic stage from 03/18/2020:Stage IA(pT1c, pN0, cM0, G2, ER: Positive, IL: Positive, HER2: Positive) - Signed by Souleymane Gonsalez MBBS on 04/18/2023 Assessment & Plan (08/15/2024 3:22 PM EDT): IMPRESSION: This is a 75-year-old woman with the following diagnosis: She is 4 years and 5 months out from the diagnosis of right breast invasive ductal carcinoma, stage IA (pT1c,pN0,cM0), triple positive. Patient is s/p breast conservation therapy with a right partial mastectomy with sentinel lymph node evaluation followed by adjuvant chemotherapy with Taxol and Herceptin, completed adjuvant radiation therapy and has been on endocrine therapy with anastrozole. Patient is postmenopausal. Genetic testing was unremarkable. Osteoporosis -patient is following with endocrinology and is on treatment for this DISCUSSION: I discussed overall impression, natural history of the disease, stage of the disease and further management in this regard. Patient had early stage breast cancer which has high cure rates with current standard treatment options. Cure rates are over 90% . Patient has been doing well from a oncological standpoint without any evidence of cancer recurrence and I reassured her about this. Her most recent mammogram was benign. She has been tolerating current therapy with some expected but manageable side effects. I discussed side effects on this approach including but not limited to hot flashes, aches and pains, worsening of osteopenia and development of osteoporosis. Endocrine therapy is recommended for 7-10 years. RECOMMENDATIONS: Continue anastrozole 1 mg p.o. daily, planned for 7-10 years She is following with endocrinology regarding osteoporosis and is on treatment for this Continue Lexapro 20mg po daily and Gabapentin 300 mg po qhs Continue Tramadol prn Next mammogram to be done in 05/2025 Return for follow-up appointment in 6 months Thank you very much for allowing to participate in this patient's care Assessment & Plan (10/21/2023 7:51 PM EDT): IMPRESSION: This is a 73-year-old woman with the following diagnosis: She is 3 years and 7 months out from the diagnosis of right breast invasive ductal carcinoma, stage IA (pT1c,pN0,cM0), triple positive. Patient is s/p breast conservation therapy with a right partial mastectomy with sentinel lymph node evaluation followed by adjuvant chemotherapy with Taxol and Herceptin, completed adjuvant radiation therapy and has been on endocrine therapy with anastrozole. Patient is postmenopausal. Genetic testing was unremarkable. Osteoporosis -patient is following with endocrinology and plan is to start her on Zometa infusion DISCUSSION: I discussed overall impression, natural history of the disease, stage of the disease and further management in this regard. Patient had early stage breast cancer which has high cure rates with current standard treatment options. Cure rates are over 90% . Patient has been doing well from a oncological standpoint without any evidence of cancer recurrence and I reassured her about this. Her most recent mammogram was benign. She has been tolerating current therapy with some expected but manageable side effects. I discussed side effects on this approach including but not limited to hot flashes, aches and pains, worsening of osteopenia and development of osteoporosis. Endocrine therapy is recommended for 7-10 years. RECOMMENDATIONS: Continue anastrozole 1 mg p.o. daily, planned for 7-10 years Continue vitamin D 2000 units and calcium supplements 1000 mg daily She is following with endocrinology regarding osteoporosis Continue Lexapro 20mg po daily and Gabapentin 300 mg po qhs Continue Tramadol prn Next mammogram to be done in 05/2024 Next bone density study TBD in 04/2025 Return for follow-up appointment in 6 months Thank you very much for allowing to participate in this patient's care Assessment & Plan (07/02/2023 10:01 AM EST): IMPRESSION: This is a 73-year-old woman with the following diagnosis: She is 3 years and 1 month out from the diagnosis of right breast invasive ductal carcinoma, stage IA (pT1c,pN0,cM0), triple positive. Patient is s/p breast conservation therapy with a right partial mastectomy with sentinel lymph node evaluation followed by adjuvant chemotherapy with Taxol and Herceptin, completed adjuvant radiation therapy and has been on endocrine therapy with anastrozole. Patient is postmenopausal. Genetic testing was unremarkable. Osteoporosis DISCUSSION: I discussed overall impression, natural history of the disease, stage of the disease and further management in this regard. Patient had early stage breast cancer which has high cure rates with current standard treatment options. Cure rates are over 90% . Patient has been doing well from a oncological standpoint without any evidence of cancer recurrence and I reassured her about this. Her most recent mammogram was benign. She has been tolerating current therapy with some expected but manageable side effects. I discussed side effects on this approach including but not limited to hot flashes, aches and pains, worsening of osteopenia and development of osteoporosis. Endocrine therapy is recommended for 7-10 years. Osteoporosis: Most recent bone density study showing osteoporosis. I recommended and discussed treatment options for this. Patient is going to stay on endocrine therapy for many more years and is reasonable to consider treatment for her osteoporosis. I recommended to start Fosamax 70 mg once weekly. She was able to take it for about a month but has not been able to tolerate it because of the side effects. She is looking for a different treatments for her osteoporosis. I recommended consultation with endocrine to see if oral bisphosphonates versus intravenous bisphosphonate is a better option for her. RECOMMENDATIONS: Continue anastrozole 1 mg p.o. daily, planned for 7-10 years Hold Fosamax for now Schedule consultation with endocrine to discuss treatment options for osteoporosis Continue vitamin D 2000 units and calcium supplements 1000 mg daily Continue Lexapro 20mg po daily and Gabapentin 300 mg po qhs Continue Tramadol prn Next mammogram to be done in 05/2024 Next bone density study TBD in 04/2025 Return for follow-up appointment in 5 months Thank you very much for allowing to participate in this patient's care Assessment & Plan (05/08/2023 12:36 PM EST): IMPRESSION: This is a 73-year-old woman with the following diagnosis: She is 3 years and 1 month out from the diagnosis of right breast invasive ductal carcinoma, stage IA (pT1c,pN0,cM0), triple positive. Patient is s/p breast conservation therapy with a right partial mastectomy with sentinel lymph node evaluation followed by adjuvant chemotherapy with Taxol and Herceptin, completed adjuvant radiation therapy and has been on endocrine therapy with anastrozole. Patient is postmenopausal. Genetic testing was unremarkable. Osteoporosis DISCUSSION: I discussed overall impression, natural history of the disease, stage of the disease and further management in this regard. Patient had early stage breast cancer which has high cure rates with current standard treatment options. Cure rates are over 90% . Patient has been doing well from a oncological standpoint without any evidence of cancer recurrence and I reassured her about this. Her most recent mammogram was benign. She has been tolerating current therapy with some expected but manageable side effects. I discussed side effects on this approach including but not limited to hot flashes, aches and pains, worsening of osteopenia and development of osteoporosis. Endocrine therapy is recommended for 7-10 years. Osteoporosis: Most recent bone density study showing osteoporosis. I recommended and discussed treatment options for this. Patient is going to stay on endocrine therapy for many more years and is reasonable to consider treatment for her osteoporosis. I recommended to start Fosamax 70 mg once weekly. Side effects were discussed. Patient agreed to proceed. I also advised her to start taking vitamin D and calcium supplements. RECOMMENDATIONS: Continue anastrozole 1 mg p.o. daily, planned for 7-10 years Start Fosamax 70 mg once weekly Continue vitamin D 2000 units and calcium supplements 1000 mg daily Continue Lexapro 20mg podaily and Gabapentin 300 mg po qhs Continue Tramadol prn Next mammogram is scheduled next week Next bone density study TBD in 04/2025 Return for follow-up appointment in 6 months Thank you very much for allowing to participate in this patient's care Assessment & Plan (04/18/2023 2:02 PM EST): IMPRESSION: This is a 73-year-old woman with the following diagnosis: She is 3 years and 1 month out from the diagnosis of right breast invasive ductal carcinoma, stage IA (pT1c,pN0,cM0), triple positive. Patient is s/p breast conservation therapy with a right partial mastectomy with sentinel lymph node evaluation followed by adjuvant chemotherapy with Taxol and Herceptin, completed adjuvant radiation therapy and has been on endocrine therapy with anastrozole. Patient is postmenopausal. Genetic testing was unremarkable. DISCUSSION: I discussed overall impression, natural history of the disease, stage of the disease and further management in this regard. Patient had early stage breast cancer which has high cure rates with current standard treatment options. Cure rates are over 90% . Patient has been doing well from a oncological standpoint without any evidence of cancer recurrence and I reassured her about this. Her most recent mammogram was benign and bone density study showed osteopenia. She has been tolerating current therapy with some expected but manageable side effects. I discussed side effects on this approach including but not limited to hot flashes, aches and pains, worsening of osteopenia and development of osteoporosis. Endocrine therapy is recommended for 7-10 years. RECOMMENDATIONS: Continue anastrozole 1 mg p.o. daily plan for 7-10 years. Next mammogram is scheduled next month Next bone density study is also due, scheduled Continue vitamin D and calcium supplements Continue Lexapro 20mg podaily and increase Gabapentin to 300 mg po daily Continue Tramadol prn Follow-up over the phone after the above-mentioned studies are done Return for follow-up appointment in 6 months Thank you very much for allowing to participate in this patient's care Immunizations Immunization Administration Dates Next Due Influenza High-Dose Trivalent Preservative Free IM 01/21/2024 Influenza Quadrivalent Adjuvanted Preservative F ree IM 03/22/2023 Influenza Quadrivalent Preservative Free IM 01/05 RSV Vaccine (monovalent, adjuvanted) 04/30/2023 Tdap 05/09/2023 Family History Medical History Relation Comments Breast cancer Mother Breast cancer Sister Relation Status Comments Mother Sister Social History Tobacco Use Types Packs/Day Years [...] Orientation Straight 03/08/2023 11 :48 AM EDT Last Filed Vital Signs Vital Sign Reading Time Taken Comments Blood Pressure 130/80 08/24/2024 11:01 AM EDT Pulse 71 08/13/2024 3:43 PM EDT Temperature 36.3 C (97.4 F) 08/13/2024 3:43 PM EDT Respiratory Rate 11 07/10/2024 11:50 AM EST Oxygen Saturation 98% 08/13/2024 3:43 PM EDT Inhaled Oxygen Concentration - - Weight 55.8 kg (123 lb) 08/24/2024 11:01 AM EDT Height 162.6 cm (5' 4.02 ) 08/24/2024 11:01 AM E DT Body Mass Index 21.1 08/24/2024 11:01 AM EDT Plan of Treatment Upcoming Encounters Date Type Department Care Team (Late st Contact Info) Description 02/08/2025 3:20 PM EDT Office Visit [facility] at [address] [address] Souleymane Gonsalez MBBS [address] [place] [phone] [email or web address] 02/23/2025 11:50 AM EDT Office Visit [facility] [address] [place] [phone] Dario Maldonado DO [address] [place] [phone] 05/04/2025 2:15 PM EST Appointment [facility], Bone Density - [address] [address] Dario Maldonado DO [address] [place] [phone] Health Maintenance Due Date Last Done Comments DEPRESSION SCREENING 1963 HEPATITIS C SCREENING 1969 PNEUMOCOCCAL VACCINES (50+ years) (1 of 2 - PCV) 1970 ZOSTER VACCINES (1 of 2) 1970 COLOGUARD 01/21/1996 COLONOSCOPY 01/21/1996 COLORECTAL CANCER SCREENING 01/21/1996 FIT TEST 01/21/1996 FOBT 01/21/1996 SIGMOIDOSCOPY 01/21/1996 VIRTUAL COLONOSCOPY 01/21/1996 COVID-19 VACCINE ( season) 2024 01/21/2024, 03/22/2023 CREATININE LEVEL 07/09/2025 07/09/2024, 11/2023, 12/10/2023, Additional history exists POTASSIUM LEVEL 07/09/2025 07/09/2024, 12/11/2023 MAMMOGRAM 05/20/2026 05/20/2024, 09/2023, 04/15/2023, Additional history exists LIPID PANEL 09/21/2027 09/20/2022 Adult Td,Tdap Booster 05/09/2033 05/09/2023 RSV VACCINE Completed 04/30/2023 OSTEOPOROSIS SCREENING INITIAL (ONE-TIME) Completed 05/01/2023, 12/07/2020 SMOKING STATUS SCREENING (Once After 26 Yrs) Completed 08/13/2024 HEPATITIS A VACCINES Aged Out No long er eligible based on patient's age to complete this topic HIB VACCINES Aged Out No longer eligi ble based on patient's age to complete this topic MENINGOCOCCAL VACCINES (ACWY) Aged Out No longer eligible based on patient's age to complete this topic MENINGOCOCCAL VACCINES (B) Aged Out N o longer eligible based on patient's age to complete this topic Medical Devices Implanted Type Area Mold Press Operator Device Identifier Shelf Expiration Date Model / Serial / Lot Metal Bilateral Knees Procedures Procedure Name Priority Date/Time Associated Diagnosis Comments COMPREHENSIVE METABOLIC PANEL Routine 07/09/2024 2:27 PM EST Dysphagia, unspecified type BI MAMMOGRAM SCREENING WITH TOMOSYNTHESIS WITH CAD (BILATERAL) Routine 05/20/2024 11:07 AM EST Visit for screening mammogram BD DXA AXIAL (SPINE) WITH HIP Routine 05/01/2023 8:55 AM EST Malignant neoplasm of upper-outer quadrant of left breast in female, estrogen receptor positive from Last 3 Months or Most Recently Relevant to Health Maintenance Results * (ABNORMAL) Comprehensive metabolic panel (07/09/2024 2:27 PM EST) SODIUM 142 133 - 146 mmol/L [facility] POTASSIUM 3.6 3.3 - 5.1 mmol/L [facility] CHLORIDE 101 96 - 108 mmol/L [facility] CO2 16(L) 21 - 35 mmol/L [facility] BUN 24(H) 6 - 19 mg/dL [facility] CREATININE 1.20 0.5 - 1.5 mg/dL [facility] GLUCOSE 114(H) 70 - 99 mg/dL [facility] ALBUMIN 4.3 3.9 - 4.8 g/dL [facility] TOTAL PROTEIN 7.4 6.5 - 8.0 g/dL [facility] CALCIUM 9.5 8.4 - 10.3 mg/dL [facility] ALKALINE PHOSPHATASE 36(L) 39 - 117 U/L [facility] TOTAL BILIRUBIN 0.4 0.0 - 1.2 mg/dL [facility] AST 20 0 - 37 U/L [facility] ALT <5 0 - 40 U/L [facility] GLOBULIN 3.1 1 - 4.8 g/dL [facility] EGFR 48(L) >59 mL/min/1.7 3m2 [facility] Comment:Estimated glomerular filtration rate calculated using the CKD-EPI refit equation. ANION GAP 29(H) 10 - 20 mmol/L [facility] Blood 07/09/2024 2:27 PM EST 07/09/2024 2:28 PM EST us Brodie Flores MD LAB BLOOD ORDERABLES Final R esult [address] [address] * BI MAMMOGRAM SCREENING WITH TOMOSYNTHESIS WITH CAD (BILATERAL) (05/20/2024 11:07 AM EST) Anatomical Region Laterality Modality Breast Left, Breast Right, Breast Bilateral Bila teral Mammography 05/20/2024 12:4 9 PM EST Impressions 05/20/2024 1:10 PM EST No mammographic evidence of malignancy in either breast. Annual screening mammography is recommended. BI-RADS 2 BENIGN The patient will be notified of the results and recommendations. Narrative 05/20/2024 1:10 PM EST BI MAMMOGRAM SCREENING WITH TOMOSYNTHESIS WITH CAD (BILATERAL) Additional patient information: Screening. The patient is status-post right lumpectomy and chemoradiation therapy for breast malignancy in 2019. COMPARISON: Comparison is made with relevant prior imaging. Breast composition: The breast tissue is heterogeneously dense which may obscure small masses. FINDINGS: Post-treatment changes are present in the right breast. Small asymmetry in the posterior upper outer right breast is stable and likely related to post- therapeutic change. No abnormal masses, suspicious calcifications, or other significant findings are identified mammographically in either breast. us Car Farmer MD IMG MG EXAMS Final Re sult * BD DXA AXIAL (SPINE) WITH HIP (05/01/2023 8:55 AM EST) Anatomical Region Laterality Modality Bone Density Bone Density 05/04/2023 4:55 PM EST Impressions 05/04/2023 4:58 PM EST Osteoporosis. Overall Fracture Risk: High WHO Classification: Osteoporotic FOLLOW-UP: Based on these results, a follow up exam is recommended in 2 years. Narrative 05/04/2023 4:58 PM EST BD DXA AXIAL (SPINE) WITH HIP Technique: A dual energy x-ray absorptiometry was performed on 05/01/2023 using [employer] Horizon A ([id number]) Clinical Indications: Long-Term Treatment with Aromatase inhibitors FINDINGS: Left Femoral Neck: BMD: 0.574 g/cm2 ; T-Score:-2.5 ; Z-Score: -0.6 Left Total Hip: BMD: 0.603 g/cm2 ; T-Score: -2.8 ; Z-Score: -1.2 Right Femoral Neck: BMD: 0.610 g/cm2 ; T-Score: -2.2; Z-Score: -0.2 Right Total Hip: BMD: 0.658 g/cm2 ; T-Score: -2.3; Z-Score: -0.7 AP Total Spine: BMD: 1.025 g/cm2 ; T-Score: 0.4 ; Z-Score:2.5 * - indicates a statistically significant change. FRAX Score 10 Year Fracture Risk Major Osteoporotic Fracture: 14% Hip Fracture: 4.0% * Please note that if FRAX was not reported it is due to the patient already being treated for osteoporosis or their T-Scores for Total Spine, Total Hip and Femoral Neck are at or above -1.0 or below -2.5 World Health Organization (WHO) criteria for post-menopausal, Women: Normal: T-score at or above -1 SD Osteopenia: T-score between -1 and -2.5 SD Osteoporosis: T-score at or below -2.5 SD Procedure Note Roseanna Hoover MD - 05/04/2023 BD DXA AXIAL (SPINE) WITH HIP Technique: A dual energy x-ray absorptiometry was performed on 05/01/2023using [employer] A ([id number]) Clinical Indications: Long-Term Treatment with Aromatase inhibitors FINDINGS: Left Femoral Neck: BMD: 0.574 g/cm2 ; T-Score:-2.5 ; Z-Score: -0.6 Left Total Hip: BMD: 0.603 g/cm2 ; T-Score: -2.8 ; Z-Score: -1.2 Right Femoral Neck: BMD: 0.610 g/cm2 ; T-Score: -2.2; Z-Score: -0.2 Right Total Hip: BMD: 0.658 g/cm2 ; T-Score: -2.3; Z-Score: -0.7 AP Total Spine: BMD: 1.025 g/cm2 ; T-Score: 0.4 ; Z-Score:2.5 * - indicates a statistically significant change. FRAX Score 10 Year Fracture Risk Major Osteoporotic Fracture: 14% Hip Fracture: 4.0% * Please note that if FRAX was not reported it is due to the patientalready being treated for osteoporosis or their T-Scores for Total Spine,Total Hip and Femoral Neck are at or above -1.0 or below -2.5 World Health Organization (WHO) criteria for post-menopausal, CaucasianWomen: Normal: T-score at or above -1 SD Osteopenia: T-score between -1 and -2.5 SD Osteoporosis: T-score at or below -2.5 SD IMPRESSION: Osteoporosis. Overall Fracture Risk: High WHO Classification: Osteoporotic FOLLOW-UP: Based on these results, a follow up exam is recommended in 2years. Souleymane SANCHEZ IMG BD BONE DENSITY DEXA F inal Result from Last 3 Months or Most Recently Relevant to Health Maintenance Insurance [employer] PPO MEDICARE REPLACEMENT [employer] PPO MEDICARE REPLACEMENT [employer] PPO MEDICARE REPLACEMENT [employer] PPO MEDICARE REPLACEMENT [employer] PPO MEDICARE REPLACEMENT [employer] PPO MEDICARE REPLACEMENT Care Teams Safety Glass Installer Relationship Specialty Start Date End Date Car Farmer MD [address] [place] [address] [email or web address] PCP - General Internal Medicine 03/05/23 Souleymane Gonsalez MBBS [address] [place] [address] [email or web address] Medical Oncology 03/15/23 Additional Source Comments The information contained in this document represents components of the legal health record. It is not the complete legal health record.[facility]
--- OUTSIDE RECORDS SUMMARY | 2025-01-06 13:09 | XMS_ITS | Encounter Summary ---
Author Organization [facility] Address [address] [facility] [address] [place] [address] Phone Care Team Providers Care Sod Cutter Name Role Phone Car Farmer MD Primary Care Provider + Souleymane Gonsalez MBBS Unavailable [phone] Encounter Details Date Type Department Care Team (Late st Contact Info) Description 07/09/2024 Transcribe Orders [facility] [address] 2nd [place] [address] Brodie Flores MD [address] [facility] 2 [place] [address] [email or web address] Social History Tobacco Use Types Packs/Day Years [...] Description 02/08/2025 3:20 PM EDT Office Visit [facility] at [address] [address] Souleymane Gonsalez MBBS [address] [place] [address] [email or web address] 02/23/2025 11:50 AM EDT Office Visit [facility] [address] [place] [address] Dario Maldonado [address] [address] 05/04/2025 2:15 PM EST Appointment [facility], [facility] Density [address] [address] Dario Maldonado [address] [address] [employer] documented as of this encounter Visit Diagnoses Not on filedocumented in this encounter Care Teams Sod Cutter Relationship Specialty Start Date End Date Car Farmer MD [address] [place] [address] [email or web address] PCP - General Internal Medicine 03/05/23 Souleymane Gonsalez MBBS 5 [place] [address] [email or web address] Medical Oncology 03/15/23 documented as of this encounter Additional Source Comments The information contained in this document represents components of the legal health record. It is not the complete legal health record.[facility]
--- OUTSIDE RECORDS SUMMARY | 2025-01-06 13:09 | XMS_ITS | Encounter Summary ---
Author Organization [facility] Address [address] [facility] [address] [place] [address] Phone Care Team Providers Care Media Marketing Director Name Role Phone Car Farmer MD Primary Care Provider + Souleymane Gonsalez MBBS Unavailable Encounter Details Date Type Department Care Team (Late st Contact Info) Description 06/09/2024 Transcribe Orders Virtual Department [address] [place] [address] He Nicolas MD [address] [place] [address] Esophageal dysphagia (Primary Dx) Social History Tobacco Use Types [...] Description 02/08/2025 3:20 PM EDT Office Visit [facility] at [address] [address] Souleymane Gonsalez, MBBS [address] [place] [address] [email or web address] 02/23/2025 11:50 AM EDT Office Visit [address] [address] Dario Maldonado [address] [address] 05/04/2025 2:15 PM EST Appointment [facility], [address] [address] Dario Maldonado [address] [address] [email or web address] documented as of this encounter Results * FL UGI SERIES DOUBLE CONTRAST (06/12/2024 8:57 AM EST) Anatomical Region Laterality Modality Abdomen Computed Radiogr aphy 06/12/2024 12:2 8 PM EST Impressions 06/12/2024 1:02 PM EST Extensive esophageal mucosal irregularities, suggesting esophagitis. Direct visualization is recommended. Small hiatal hernia with moderate esophageal dysmotility but no mechanical obstruction or significant gastroduodenal pathology. FLUOROSCOPY TIME: 2 MINUTES 47 SECONDS NUMBER OF IMAGES: 370 The examination was performed by RRAMihir. Dr. Demetris Tom was immediately available for portions of the procedure as needed. ATTESTATION: I, Demetris Tom as teaching physician, have reviewed the images for this case and if necessary edited the report originally created by Mihir Cotto. Narrative 06/12/2024 1:02 PM EST FL UGI SERIES DOUBLE CONTRAST HISTORY: Esophageal dysphagia. COMPARISON: No relevant priors available for comparison. TECHNIQUE: FL upper GI series double contrast performed with barium and sodium carbonate. FINDINGS: ESOPHAGUS: Motility: Moderate dysmotility evidenced by delayed esophageal clearance in the prone drinking position and episodes of reversed peristalsis. Mucosa: Irregular shaggy outline of the esophageal mucosal surface with plaque-like filling defects apparent, a finding closely correlated with esophagitis. Distensibility: Normal. GASTROESOPHAGEAL JUNCTION: Small hiatal hernia. GASTROESOPHAGEAL REFLUX: None observed. STOMACH: Normally distensible and demonstrates normal contours and mucosal pattern. DUODENUM: Bulb and sweep are normal. Duodenal-jejunal junction is in the normal expected position. Procedure Note Demetris Tom MD - 06/12/2024 FL UGI SERIES DOUBLE CONTRAST HISTORY: Esophageal dysphagia. COMPARISON: No relevant priors available for comparison. TECHNIQUE: FL upper GI series double contrast performed with barium andsodium carbonate. FINDINGS: ESOPHAGUS: Motility: Moderate dysmotility evidenced by delayed esophagealclearance in the prone drinking position and episodes of reversedperistalsis. Mucosa: Irregular shaggy outline of the esophageal mucosal surface withplaque- like filling defects apparent, a finding closely correlated withesophagitis. Distensibility: Normal. GASTROESOPHAGEAL JUNCTION: Small hiatal hernia. GASTROESOPHAGEAL REFLUX: None observed. STOMACH: Normally distensible and demonstrates normal contours andmucosal pattern. DUODENUM: Bulb and sweep are normal. Duodenal-jejunal junction is in thenormal expected position. IMPRESSION: Extensive esophageal mucosal irregularities, suggesting esophagitis.Direct visualization is recommended. Small hiatal hernia with moderate esophageal dysmotility but no mechanicalobstruction or significant gastroduodenal pathology. FLUOROSCOPY TIME: 2 MINUTES 47 SECONDS NUMBER OF IMAGES: 370 The examination was performed by RRAMihir. Dr. Demetris Tom wasimmediately available for portions of the procedure as needed. ATTESTATION: I, Demetris Tom as teaching physician, have reviewed theimages for this case and if necessary edited the report originally createdby Mihir Cotto. us He Nicolas MD IMG FL MISC Final Result documented in this encounter Visit Diagnoses Diagnosis Esophageal dysphagia- Primary Dysphagia, pharyngoesophageal phase Esophageal dysphagia Dysphagia, pharyngoesophageal phase documented in this encounter Care Teams Media Marketing Director Relationship Specialty Start Date End Date Car Farmer MD [address] [place] [address] [email or web address] PCP - General Internal Medicine 03/05/23 Souleymane Gonsalez MBBS [address] [place] [address] [email or web address] Medical Oncology 03/15/23 documented as of this encounter Additional Source Comments The information contained in this document represents components of the legal health record. It is not the complete legal health record.[facility]
== END 2025-01-06 11:33 | disposition home or self-care (01) ==
LOC: HO.HOS 10:58
PROVIDERS: PCP Internal Medicine
DX: S72.144A Nondisplaced intertrochanteric fracture of right femur, initial encounter for closed fracture (principal)
CPT/HCPCS: 99024

== ENCOUNTER → 2025-01-06 10:59 | Outpatient (BNV) | payer MEDICARE, SELFPAY | PROVIDERS: Visit Provider Radiology Diagnostic Radiology | DX: S72.141G Displaced intertrochanteric fracture of right femur, subsequent encounter for closed fracture with delayed healing (principal) | CPT/HCPCS: 73502 ==

== ENCOUNTER 2025-04-07 13:20 | Outpatient (REF) | payer MEDICARE, SELFPAY ==
--- NOTE | ~2025-04-07 | XR_ITS ---
EXAMINATION: XR HIP, RIGHT CLINICAL INFORMATION: M25.551 - Pain in right hip COMPARISON: 01/06/2025 TECHNIQUE: AP view of the lower pelvis and proximal thighs, AP and frog-leg lateral view of the right hip FINDINGS: Again seen is a short intramedullary nail with distal interlocking screw. There is also a lag screw traversing fracture at the junction of femoral neck and intertrochanteric region. Fracture line remains partially visible with minimal improvement when compared to the most recent prior, and definite improvement when compared with November 2024 Again seen is a distracted greater trochanteric fracture fragment. There is maturing heterotopic ossification cephalad to the greater trochanter fragment. XR/XR hip RT min 2V IMPRESSION: Mild visible interval improvement in the appearance of an intertrochanteric fracture of the right hip post-ORIF. Maturing heterotopic ossification cephalad to the avulsed distracted right greater trochanter right mid. Electronically signed by: John Mosher MD 04/07/2025 02:14 PM JOSE OLIVA
--- OUTSIDE RECORDS SUMMARY | 2025-04-07 16:28 | XMS_ITS | Patient Health Record ---
Author Organization [facility] Address [address] [place] [place] [address] Care Team Providers Care Salesperson Automobiles Name Role Phone Eleno Melendez MD Unavailable [...] weeks on and 1 week off Transdermal [id number] Active Losartan Potassium 100 MG take 1 [...] Coverage End Date [employer] [address] [place] [address] [id number] Iliana Kenyon Self - patient is the insured 9 [employer] POS [address] [address] [place] [address] [id number] Iliana Kenyon Self - patient is the insured 6 9 Medical (General) History Surgical History Surgery Date(Month/Year) Appendectomy; 12/26/2009 Colonoscopy; 07/08/2019 Cyst; 12/26/2009 Hysterectomy / Unknown; 12/26/2009 Uvulopalatopharyngoplasty; 07/08/2019
== END 2025-04-07 13:21 | disposition home or self-care (01) ==
LOC: HO.HOSX 13:20
DX: S72.144A Nondisplaced intertrochanteric fracture of right femur, initial encounter for closed fracture (principal); X58.XXXD Exposure to other specified factors, subsequent encounter
CPT/HCPCS: 73502; 99212

== ENCOUNTER 2025-04-07 13:20 | Outpatient (AMB) | payer MEDICARE, SELFPAY ==
--- OUTSIDE RECORDS SUMMARY | 2013-01-21 23:00 | XMS_ITS | Encounter Summary ---
Author Organization [facility] Address [address] [facility] [address] [place] [address] Phone Care Team Providers Care Head Porter Baggage Name Role Phone Unavailable Primary Care Provider Unavailabl e Encounter Details Date Type Department Care Team (Late st Contact Info) Description 01/22/2013 Hospital Encounter [facility],Outside Imaging [address] [place], [place] [id number] Unknown, Unknown, Social History Tobacco Use Types Packs/Day Years Used Date Smoking Tobacco: Never Passive Smoke Exposure: Never Smokeless Tobacco: Never Alcohol Use Standard Drinks/Week Comments Yes 1 (1 standard drink = 0.6 oz pur e alcohol) ones month Education Answer Date Recorded Are you interested in more education? Not on isabel e 03/08/2023 Are you concerned about learning? Not on file 03/08/2023 No 03/08/2023 No 03/08/2023 Digital Access Answer Date Recorded No 03/08/2023 No 03/08/2023 Reliable internet access at home? Not on file 03/08/2023 Device with a working camera? Not on file Intimate Partner Violence Answer Date R ecorded Are you denied basic needs s uch as food, clothing, or medical care? No 07/10/2024 In the past 12 months have y ou been in a relationship with a person who hurts, threatens, or tries to control you? No 07/10/2024 Are you denied basic needs s uch as food, clothing, or medical care? No 07/10/2024 In the past 12 months have y ou been in a relationship with a person who hurts, threatens, or tries to control you? No 07/10/2024 Comments No Sex and Gender Information Value Date Recorded Sex Assigned at Not on file Legal Sex Female 1:01 PM EDT Gender Identity Not on file Sexual Orientation Straight 03/08/2023 11 :48 AM EDT documented as of this encounter Plan of Treatment Upcoming Encounters Date Type Department Care Team (Late st Contact Info) Description 02/23/2025 Procedure Pass [facility] - [address] [place] [address] 04/16/2025 Procedure Pass [facility] Admitting Dept Virtual Department [address] [place] [address] 04/16/2025 12:30 PM EST Hospital Encounter [facility] Virtual Department [address] [place] [address] Brodie Flores MD [address] [place] [address] 04/16/2025 12:30 PM EST - 04/16/2025 1:00 PM EST Surgery [facility] Admitting Dept Virtual Department [address] [place] [address] Brodie Flores MD [address] [place] [address] COLONOSCOPY 05/04/2025 2:15 PM EST Appointment [facility], Bone Density - [address] [address] Dario Maldonado DO [address] [place] [address] 08/11/2025 2:00 PM EDT Office Visit [facility] at [address] [address] Souleymane Gonsalez, LAURA [address] [place] [phone] [email or web address] 09/07/2025 11:00 AM EDT Nurse Only [facility] [address] [place] [address] Dario Maldonado DO [address] [place] [address] [email or web address] 10/27/2025 1:15 PM EDT Appointment [address] [place] [address] Car Farmer MD [address] [place] [phone] [email or web address] Scheduled Procedures Name Priority Associated Diagnoses Date/Ti me COLONOSCOPY History of colonic polyps 04/16/2025 12:30 PM EST documented as of this encounter Procedures Procedure Name Priority Date/Time Associated Diagnosis Comments BI MAMMOGRAM OUTSIDE (NO INTERPRETATION) Routine 01/22/2013 12:00 AM EDT documented in this encounter Results * Mammogram Outside (No Interpretation) (01/22/2013 12:00 AM EDT) Narrative SYSTEMGENERATED, DOCUMENTATION - 03/07/2023 2:03 PM EDT This study is for PACS storage only and not for interpretation. us Unknown Unknown MD [facility] OUTSIDE IMAGING W/OUT INT ERPRETATION Final Result documented in this encounter Visit Diagnoses Not on filedocumented in this encounter Additional Health Concerns Infection Onset Date Last Indicated Resolved Time CoV-Risk 05/09/2024 05/09/2024 05/20/2024 1:21 AM EST documented as of this encounter Additional Source Comments The information contained in this document represents components of the legal health record. It is not the complete legal health record.[facility]
--- NOTE | 2025-04-07 13:33 | A.OFFVIS_ITS ---
Vital Signs 04/07/25 13:34 Height 5 ft 4 in Weight 107 lb BMI 18.4 Intake Visit Reasons: OV-Right hip IMN 10/13/24 YASw/nathalie Intake Note: Iliana is a 75 year old female who presents today for a follow up about 6 months s/p Right Hip IMN 10/13/[address] Gutierrez. At her last visit she was advised to continue working with physical therapy as it was reasonable to move back from walking with a walker to a cane. Today, patient reports she is doing well. She experiences discomfort with prolonged standing but is able to move around with her cane. She takes Ibuprofen PRN with relief. Allergies Penicillins Allergy (Unknown, Verified 04/07/25 13:34) Unknown HPI HPI OV-Right hip IMN 10/13/24 Ravi/behzaday: Details: Iliana is a 75 year old female who presents today for a follow up about 6 months s/p Right Hip IMN 10/13/[address] Gutierrez. At her last visit she was advised to continue working with physical therapy as it was reasonable to move back from walking with a walker to a cane. Today, patient reports she is doing well. She experiences discomfort with prolonged standing but is able to move around with her cane. The patient does report that she feels she did overdo it on Thanksgiving, standing for approximately 6-8 hours without relief, and the next day she used a particular motion when turning away from the pharyngeal later and felt a severe pain in the right hip, states that this resolved after about 5-10 minutes and has not had any repeat episodes. Patient states she is still able to bear weight with no difficulty. She takes Ibuprofen PRN with relief. [facility] Medical History Hx of radiation therapy Chemotherapy management, encounter for History of chronic back pain Osteoporosis Hx of migraine headaches Hyperlipemia Depression Gastroesophageal reflux disease Mood disorder Breast cancer, right Hypertension Surgical History Hx of lumpectomy Hx of wisdom tooth extraction Hx of appendectomy Hx of total knee replacement Hx of colonoscopy Social History Household Members: Spouse Housing: House Do you presently have visiting nurse or other home services: No Patient Tobacco Use Status: Never used Tobacco service: No Current occupational status: retired Physical Exam Vital Signs: BMI result Body Mass Index 18.4 Last Vital Signs Temp 98.5 F 10/15/24 08:00 Pulse 97 10/15/24 08:00 Resp 18 10/15/24 08:00 BP 131/66 10/15/24 08:00 Pulse Ox 98 10/15/24 08:00 O2 Del Method Room Air 10/15/24 08:00 BMI result Body Mass Index 18.7 Const General: cooperative, healthy appearing and no acute distress Resp Effort & Inspection: normal respiratory effort and able to speak in complete sentences Cardio Rate: regular rate Peripheral pulses: Peripheral pulses 2+ throughout GI Palpation (GI): Soft to palpation Skin Lesions: no lesions Rashes: no rashes Extrem Other: incision is clean, dry, intact, well healed. Able to dorsi/plantar flex. Calf is supple and nontender. Sensation intact. Pedal pulse intact. Patient is able to flex the right hip to approximately 120 degrees while seated without difficulty. Patient is able to ambulate without difficulty with a cane, nonantalgic gait noted. Of note, patient does walk with a cane at baseline Results Reviewed Results Reviewed: X-rays obtained in the office today and independently reviewed by me, Pete Dunne PA-C, demonstrate surgically corrected fracture of right hip with all orthopedic hardware in place and in satisfactory clinical alignment with evidence of interval bony healing. Assessment & Plan Assessment & Plan (1) Closed intertrochanteric fracture of right hip: Code(s): S72.141A - Displaced intertrochanteric fracture of right femur, initial encounter for closed fracture Category: Medical Qualifiers: Encounter type: initial encounter Fracture alignment: nondisplaced Qualified Code(s): S72.144A - Nondisplaced intertrochanteric fracture of right femur, initial encounter for closed fracture Plan 1. Status post IM nail of right hip DOS 10/13/2024 Patient appears to be recovering well postoperatively Patient is educated about the typical recovery course Continue working with physical therapy Patient is educated that I feel it is reasonable at this time for her to continue working with PT to get back to full baseline function Follow-up in 6 months with repeat x-rays for reassessment, sooner with any acute concerns Orders: Orders XR hip RT min 2V Today M25.551 - Pain in right hip Coding Level of Care Code Est Pt Level 3 (93878) Diagnoses Closed intertrochanteric fracture of right hip S72.144A Encounter type: initial encounter Fracture alignment: nondisplaced
[2025-04-07 13:34] VITALS: BMI 18.4
--- OUTSIDE RECORDS SUMMARY | 2025-04-07 15:49 | XMS_ITS | Encounter Summary ---
Author Organization [facility] Address [address] [place] [address] [place] [address] Phone Care Team Providers Care Electric Meter Tester Helper Name Role Phone Car Farmer MD Primary Care Provider + Souleymane Gonsalez MBBS Unavailable Encounter Details Date Type Department Care Team (Late st Contact Info) Description 02/13/2024 Procedure Pass [address] [place] [address] Social History Tobacco Use Types Packs/Day Years [...] st Contact Info) Description 02/23/2025 Procedure Pass [facility] - [address] Egan, [place] [address] 04/16/2025 Procedure Pass [facility] Admitting Dept Virtual Department [address] [place] [address] 04/16/2025 12:30 PM EST Hospital Encounter [facility] Admitting [facility] Virtual Department [address] [place] [address] Brodie Flores MD [address] [place] [address] 2 [place] [address] 04/16/2025 12:30 PM EST - 04/16/2025 1:00 PM EST Surgery [facility] Admitting Dept Virtual Department [address] [place] [address] Brodie Flores MD [address] [place] [address] COLONOSCOPY 05/04/2025 2:15 PM EST Appointment [facility] - [address] [address] Dario Maldonado DO [address] [place] [address] 08/11/2025 2:00 PM EDT Office Visit [facility] at [address] [address] Souleymane Gonsalez, LAURA [address] [place] [address] [email or web address] 09/07/2025 11:00 AM EDT Nurse Only [facility] [address] [place] [address] [place] [address] [place] [address] 10/27/2025 1:15 PM EDT Appointment [address] [place] [address] Car Farmer MD [address] [place] [address] [email or web address] Scheduled Procedures Name Priority Associated Diagnoses Date/Ti me COLONOSCOPY History of colonic polyps 04/16/2025 12:30 PM EST documented as of this encounter Visit Diagnoses Not on filedocumented in this encounter Additional Health Concerns Infection Onset Date Last Indicated Resolved Time CoV-Risk 05/09/2024 05/09/2024 05/20/2024 1:21 AM EST documented as of this encounter Care Teams Electric Meter Tester Helper Relationship Specialty Start Date End Date Car Farmer MD [address] [place] [address] [email or web address] PCP - General Internal Medicine 03/05/23 Souleymane Gonsalez MBBS [address] [place] [address] [email or web address] Medical Oncology 03/15/23 documented as of this encounter Additional Source Comments The information contained in this document represents components of the legal health record. It is not the complete legal health record.[facility]
--- OUTSIDE RECORDS SUMMARY | 2025-04-07 15:52 | XMS_ITS | Encounter Summary ---
Author Organization [facility] Address [address] [place] [address] [place] [address] Phone Care Team Providers Care Route Driver Name Role Phone Car Farmer MD Primary Care Provider + Souleymane Gonsalez MBBS Unavailable [phone] Encounter Details Date Type Department Care Team (Late st Contact Info) Description 04/16/2023 Procedure Pass [address] [place] [address] Social History Tobacco Use Types Packs/Day Years [...] st Contact Info) Description 02/23/2025 Procedure Pass [address] [place] [address] 04/16/2025 Procedure Pass [facility] Admitting [facility] Virtual Department [address] [place] [address] 04/16/2025 12:30 PM EST Hospital Encounter [facility] Virtual Department [address] [place] [address] Brodie Flores MD [address] [place] [address] 04/16/2025 12:30 PM EST - 04/16/2025 1:00 PM EST Surgery [facility] Admitting Dept Virtual Department [address] [place] [address] Brodie Flores MD [address] [place] [address] COLONOSCOPY 05/04/2025 2:15 PM EST Appointment [facility], Bone Density - [address] [address] Dario Maldonado DO [address] [place] [address] 08/11/2025 2:00 PM EDT Office Visit [facility] at [address] [address] Souleymane Gonsalez MBBS [address] [place] [address] [email or web address] 09/07/2025 11:00 AM EDT Nurse Only [facility] [address] [place] [address] [place] [address] Dario Maldonado DO [address] [place] [address] 10/27/2025 1:15 PM EDT Appointment [address] [place] [address] Car Farmer MD [address] [place] [address] [email or web address] Scheduled Procedures Name Priority Associated Diagnoses Date/Ti me COLONOSCOPY History of colonic polyps 04/16/2025 12:30 PM EST documented as of this encounter Visit Diagnoses Not on filedocumented in this encounter Additional Health Concerns Infection Onset Date Last Indicated Resolved Time CoV-Risk 05/09/2024 05/09/2024 05/20/2024 1:21 AM EST documented as of this encounter Care Teams Route Driver Relationship Specialty Start Date End Date Car Farmer MD [address] [place] [address] [email or web address] PCP - General Internal Medicine 03/05/23 Souleymane Gonsalez MBBS [address] [place] [address] [email or web address] Medical Oncology 03/15/23 documented as of this encounter Additional Source Comments The information contained in this document represents components of the legal health record. It is not the complete legal health record.[facility]
--- OUTSIDE RECORDS SUMMARY | 2025-04-07 15:53 | XMS_ITS | Encounter Summary ---
Author Organization [facility] Address [address] [facility] [address] [place] [address] Phone Care Team Providers Care Consular Officer Name Role Phone Car Farmer MD Primary Care Provider + Souleymane Gonsalez MBBS Unavailable [phone] Encounter Details Date Type Department Care Team (Late st Contact Info) Description 06/09/2024 Transcribe Orders Virtual Department [address] [place] [address] He Nicolas MD [address] [place] [address] Esophageal dysphagia (Primary Dx) Social History Tobacco [...] st Contact Info) Description 02/23/2025 Procedure Pass [facility] - [address] [place] [address] 04/16/2025 Procedure Pass [facility] Admitting [facility] Virtual Department [address] [place] [address] 04/16/2025 12:30 PM EST Hospital Encounter [facility] Ad[facility] Virtual Department [address] [place] [address] Brodie Flores MD [address] [place] [address] 04/16/2025 12:30 PM EST - 04/16/2025 1:00 PM EST Surgery [facility] Admitting Dept Virtual Department [address] [place] [address] Brodie Flores MD [address] [place] [address] COLONOSCOPY 05/04/2025 2:15 PM EST Appointment [facility], Bone Density - [address] [address] Dario Maldonado DO [address] [place] [address] 08/11/2025 2:00 PM EDT Office Visit [facility] at [address] [address] Souleymane Gonsalez MBBS [address] [place] [address] [email or web address] 09/07/2025 11:00 AM EDT Nurse Only [facility] [address] [place] [address] [place] [address] Joel Dario [address] [place] [address] 10/27/2025 1:15 PM EDT Appointment [address] [place] [address] Car Farmer MD [address] [place] [address] [email or web address] Scheduled Procedures Name Priority Associated Diagnoses Date/Ti ms COLONOSCOPY History of colonic polyps 04/16/2025 12:30 PM EST documented as of this encounter Results * [...] IMAGES: 370 The examination was performed by RRA, Mihir Cotto. Dr. Demetris Tom was immediately available for portions of the procedure as needed. ATTESTATION: I, Demetris Tom as teaching physician, have reviewed the images for this case and if necessary edited the report originally created by Mhiir Cotto. Narrative 06/12/2024 1:02 PM EST FL [...] edited the report originally createdby Mihir Cotto. He Nicolas MD [facility] MISC Final Result documented in this encounter Visit Diagnoses Diagnosis Esophageal dysphagia- Primary Dysphagia, pharyngoesophageal phase Esophageal dysphagia Dysphagia, pharyngoesophageal phase History of colonic polyps Personal history of colonic polyps documented in this encounter Care Teams Consular Officer Relationship Specialty Start Date End Date Car Farmer MD [address] [place] [address] [email or web address] PCP - General Internal Medicine 03/05/23 Souleymane Gonsalez MBBS [address] [place] [address] [email or web address] Medical Oncology 03/15/23 documented as of this encounter Additional Source Comments The information contained in this document represents components of the legal health record. It is not the complete legal health record.[facility]
--- OUTSIDE RECORDS SUMMARY | 2025-04-07 15:53 | XMS_ITS | Encounter Summary ---
Author Organization [facility] Address [address] [facility] [address] [place] [phone] Phone Care Team Providers Care Home Hospice Aide Name Role Phone Car Farmer MD Primary Care Provider + Souleymane Gonsalez MBBS Unavailable [phone] Encounter Details Date Type Department Care Team (Late st Contact Info) Description 08/11/2024 Procedure Pass [facility], Ct Scan - [facility] [address] [place] [address] Social History Tobacco Use Types Packs/Day Years [...] st Contact Info) Description 02/23/2025 Procedure Pass [facility] - [address] [place] [address] 04/16/2025 Procedure Pass [facility] Admitting Dept Virtual Department [address] [place] [phone] 04/16/2025 12:30 PM EST Hospital Encounter [facility]mitting [facility] Virtual Department [address] [place] [phone] Brodie Flores MD [address] [place] [phone] 04/16/2025 12:30 PM EST - 04/16/2025 1:00 PM EST Surgery [facility] Endoscopy Admitting Dept Virtual Department [address] [place] [phone] Brodie Flores MD [address] [place] [phone] COLONOSCOPY 05/04/2025 2:15 PM EST Appointment [facility], Bone Density - [address] [address] Dario Maldonado DO [address] [place] [phone] 08/11/2025 2:00 PM EDT Office Visit [facility] at [address] [address] Souleymane Gonsalez MBBS [address] [place] [address] [email or web address] 09/07/2025 11:00 AM EDT Nurse Only [facility] [address] [place] [address] Dario Maldonado DO [address] [place] [address] [email or web address] 10/27/2025 1:15 PM EDT Appointment [address] [place] [address] Car Farmer MD [address] [place] [phone] [email or web address] Scheduled Procedures Name Priority Associated Diagnoses Date/Ti me COLONOSCOPY History of colonic polyps 04/16/2025 12:30 PM EST documented as of this encounter Visit Diagnoses Not on filedocumented in this encounter Care Teams Home Hospice Aide Relationship Specialty Start Date End Date Car Farmer MD [address] [place] [phone] [email or web address] PCP - General Internal Medicine 03/05/23 Souleymane Gonsalez MBBS [address] [place] [phone] [email or web address] Medical Oncology 03/15/23 documented as of this encounter Additional Source Comments The information contained in this document represents components of the legal health record. It is not the complete legal health record.[facility]
--- OUTSIDE RECORDS SUMMARY | 2025-04-07 15:53 | XMS_ITS | Data Portability ---
Author Organization [facility], [facility] Address [address] [place] [address] Care Team Providers Care Prepress Specialist Name Role Phone DECLAN FLEMING Primary Care Provider [phone] Assessment Encounter Date Assessment Date Assessment LastModified by Organization Details LastModified Time 03/16/2022 03/16/2022 PHYSICAL THERAPY DAILY NOTE Dx: L TKR DOI: DOS: Start of Therapy Date: 02/26/22 Therapy Visit: #4 Referring MD: Cristo ROLAND Return Date: Will be moving to [facility] in 6-8 months. R TKR 2001. Subjective. History of Present Condition/Mecha nism of Injury: No cartilage in knee, but was painful. 6 sessions of home PT. Was having pain in the right knee from compensating ot the left knee. Still swollen. Painful- nerves shoot pain in and downward. Has had benefits from antibiotics. Current Functional Limitations: step to pattern on stairs, Use of a cane Pain Scale: 6 /10. Patient Goals:be able to walk normally without a cane. Objective: Today's treatment: TE (see flow sheet). Manual (patella mobs, calf stretch, PROM knee flexion). Ice 10 minutes, left knee. Knee PROM; Flexion = 128 . Palpation. TTP medial and lateral knee joint region, posterior knee region. Assessment: 72 y/o F presents to clinic with c/o decreased ROM , swelling pain s/p L TKR. Recommend skilled PT to decrease pain and improve functional ability. Rehab Potential: Good . Patient Problems: pain. functional ability Winemaker Goals: 6 weeks 1. pt able to negotiate flight of stairs with normal gait pattern without AD for 5 consecutive days. 2. pt able to walk for 1 hour with normal gait pattern without increased pain level by 1/10 level on 5 consecutive days. Plan Continue with PT. Total time: 60 minutes Timed codes: 30 minutes [email or web address] Not available 03/16/2022 17:23:48 03/20/2022 03/20/2022 PHYSICAL THERAPY DAILY NOTE Dx: L TKR DOI: DOS: Start of Therapy Date: 02/26/22 Therapy Visit: #5 Referring MD: Cristo ROLAND Return Date: Will be moving to [facility] in 6-8 months. R TKR 2001. Subjective. History of Present Condition/Mecha nism of Injury: No cartilage in knee, but was painful. 6 sessions of home PT. Was having pain in the right knee from compensating ot the left knee. Meloxicam and anti-biotic have helped. Less achy. 14 steps at home with no problems. Painful- nerves shoot pain in and downward. Has had benefits from antibiotics. Current Functional Limitations: step to pattern on stairs, Use of a cane Pain Scale: 4/10. Patient Goals:be able to walk normally without a cane. Objective: Today's treatment: TE (see flow sheet). Manual (patella mobs, calf stretch, PROM knee flexion). Ice 10 minutes, left knee. Knee PROM; Flexion = 142 . Palpation. TTP medial and lateral knee joint region, posterior knee region. Assessment: 72 y/o F presents to clinic with c/o decreased ROM , swelling pain s/p L TKR. Recommend skilled PT to decrease pain and improve functional ability. Rehab Potential: Good . Patient Problems: pain. functional ability Winemaker Goals: 6 weeks 1. pt able to negotiate flight of stairs with normal gait pattern without AD for 5 consecutive days. 2. pt able to walk for 1 hour with normal gait pattern without increased pain level by 1/10 level on 5 consecutive days. Plan Continue with PT. Total time: 60 minutes. [email or web address] Not available 03/20/2022 13:10:52 03/27/2022 03/27/2022 PHYSICAL THERAPY DAILY NOTE Dx: L TKR DOI: DOS: Start of Therapy Date: 02/26/22 Therapy Visit: #6 Referring MD: Cristo ROLAND Return Date: Will be moving to [place] in 6-8 months. R TKR 2001. Subjective. History of Present Condition/Mecha nism of Injury: No cartilage in knee, but was painful. 6 sessions of home PT. Was having pain in the right knee from compensating ot the left knee. Meloxicam and anti-biotic have helped. Less achy. 14 steps at home with no problems. knee has been feeling well. Painful- nerves shoot pain in and downward. Has had benefits from antibiotics. Current Functional Limitations: step to pattern on stairs, Use of a cane Pain Scale: 0-2/10. Patient Goals:be able to walk normally without a cane. Objective: Today's treatment: TE (see flow sheet). Manual (patella mobs, calf stretch, PROM knee flexion). Ice 10 minutes, left knee. Knee PROM; Flexion = 142 . Palpation. TTP medial and lateral knee joint region, posterior knee region. Assessment: 72 y/o F presents to clinic with c/o increased ROM , s/p L TKR. Recommend skilled PT to decrease pain and improve functional ability. Rehab Potential: Good . Patient Problems: pain. functional ability Residential Goals: 6 weeks 1. pt able to negotiate flight of stairs with normal gait pattern without AD for 5 consecutive days. 2. pt able to walk for 1 hour with normal gait pattern without increased pain level by 1/10 level on 5 consecutive days. Plan Continue with PT. Total time: 60 minutes. [email or web address] Not available 03/27/2022 23:28:28 Plan of Treatment Reminders Order Date Submit Date Provider Last Modified By Organization Details Last Modified Time Details Appointments None recorded. Lab None recorded. Referral None recorded. Procedures None recorded. Surgeries None recorded. Imaging XR, knee, 3 view 2021 In-Office Order, Internal Use Only DO Not Attach Compendium DO Not Attach Compendium, Do Not Delete/merge, [id number] 15:30:57 Medication Orders tramadol 50 mg tablet 2021 [email or web address] [id number], [address] [facility], [place], [address], 15:32:54 tramadol 50 mg tablet 2021 Not available 13:37:33 Mobic 15 mg tablet 2021 BRADLEY [id number], [facility] [place], [address], 13:10:46 Protonix 20 mg tablet,de layed release 2021 BRADLEY [id number], [address] [place] [address], [address], 13:10:47 Bactrim DS 800 mg-160 mg tablet 2021 [email or web address] [id number], [address] [place] [address], [address], 13:00:26 Patient TargetsNo targets recorded. Patient Instructions Encounter Date Encounter Id Patient Instructions Last Modified By Organization Details Last Modified Time 03/14/2022 [id number] Patient returns for routine follow up s/p a left TKA on 01/22/22. She ambulates with a cane. She explains she uses the cane only outside of her home for stability. Pain is improving. ROM at left knee is 0-125 deg. Incision is healing well, mild erythema at the proximal aspect of the incision, mild tenderness, no drainage. The leg is neurovascularly intact throughout and patient is able to plantarflex and dorsiflex at all toes and the ankle. The leg is sensate throughout. No calf pain or tenderness. Overall, she is doing well. We have provided her with a short course of prophylaxis antibiotic. She will continue with home exercises. We will see her back in 6 weeks or before then if needed. All questions were answered today. [email or web address] Not available 03/14/2022 19:06:23 05/02/2022 [id number] She returns for follow-up after her left knee replacement on 01/22/2022. She is doing well. Arc of motion at the left knee is from 0 to 125 degrees. Incision is healing well and epithelialized. No erythema or drainage. The leg is neurovascularly intact throughout and patient is able to plantarflex and dorsiflex at all toes and the ankle. The leg is sensate throughout. No calf pain. She has made good progress since her surgery. We will see her back in January 2023 for the 1 year follow-up after her left knee replacement. She also has a history of a right knee replacement in 12/14/2019 and is doing well from this. All questions were answered today. [email or web address] Not available 05/07/2022 17:13:14 Reason for Referral None Reported. Results Created Date Observation Date Name Description Value Unit Range Abnormal Flag Note LastModifiedBy Organization Detail LastModifiedTime 04/25/20 XR, knee, 3 view No observ ation record ed. [email or web address] In-Office Order Internal Use Only DO Not Attach Compendium DO Not Attach Compendium, Do Not Delete/merge, [id number] 05/07/2022 17:13:18 Result Notes None recorded. Problems Name Problem SNOMED Code Status Onset Date Resolution Date Notes Provider Name and Address Organization Details Recorded Time Drug prescripti on 778872142 Active 2019 Not Available [facility] 2 01:01:45 History of bilateral total knee replacemen t [id number] 103 Active 2021 [facility] [place] [facility] 13:12:36 Notes:Some problems listed i n Documents: #[id number], #[id number] could not be added to this patient's chart. Please review these documents and add these problems to the patient's chart manually as needed. Problem Notes None recorded. Procedures Surgical History Date Name Laterality Status Provider Name and Address Organization Details Recorded Time 03/27/20 84006: Manual Therapy completed Diego Juárez PT, [id number] [address] [address], [place], [address], [facility], [place] 03/27/2022 13:18:46 03/27/20 12522: Hot/Cold Pack completed Diego Juárez PT, [id number] [address] [facility] [address], [place], [address], [facility] [place] 03/27/2022 13:18:46 03/27/20 94145: Therapeutic Exercise completed Diego Juárez PT, [id number] [facility],[address], [place], [address], [facility] [place] 03/27/2022 13:18:46 03/20/20 22 28151: Manual Therapy completed Diego Juárez PT, [id number] [address] [facility],[address], [place], [address], [facility] 03/20/2022 12:21:09 03/20/20 22 51421: Hot/Cold Pack completed Diego Juárez PT, [id number] [address] [facility],[address], [place], [address], [facility] [place] 03/20/2022 12:21:09 03/20/20 22 57474: Therapeutic Exercise completed Diego Juárez PT, [id number] [address] [facility],[address], [place], [address], [facility] 03/20/2022 12:21:09 03/16/20 22 34035: Manual Therapy completed Diego Juárez PT, [id number] [address] [facility],[address], [place], [address], [facility] 03/16/2022 12:57:56 03/16/20 22 42648: Hot/Cold Pack completed Diego Juárez PT, [id number] [address] [facility],[address], [place], [address], [facility] 03/16/2022 17:24:31 03/16/20 22 93382: Therapeutic Exercise completed Diego Juárez PT, [id number] [address] [facility],[address], [place], [address], [facility] 03/16/2022 12:57:56 03/13/20 22 07374: Manual Therapy completed Diego Juárez PT, [id number] [address] [facility],[address], [place], [address], [facility] 03/13/2022 12:01:47 03/13/20 22 27673: Therapeutic Exercise completed Diego Juárez PT, [id number] [address] [facility],[address], [place], [address], [facility] 03/13/2022 12:01:47 03/09/20 22 63581: Manual Therapy completed Diego Juárez PT, [id number] [address] [facility],[address], [place], [address], [facility] 03/09/2022 13:06:27 03/09/20 22 14037: Therapeutic Exercise completed Diego Juárez PT, [id number] [address] [facility],[address], [place], [address], [facility] [place] 03/09/2022 13:06:27 02/27/20 22 35871: PT Evaluation - Low Complexity completed Diego Juárez PT, [id number] [address] [place] [address],[address], [place], [address], [facility] 02/26/2022 13:50:02 02/27/20 22 80266: Manual Therapy completed Diego Juárez PT, [id number] [facility],[address], [place], [address], [facility] [place] 02/26/2022 13:50:17 02/27/20 22 07193: Therapeutic Exercise completed Diego Juárez PT, [id number] [facility],[address], [place], [address], [facility] [place] 02/26/2022 13:50:06 02/10/20 20 92899: Therapeutic Exercise completed Kostas Worley DPT, [id number] [address] [place] [address],[address], [place], [address], [facility] [place] 02/09/2020 07:52:58 02/05/20 68559: Therapeutic Exercise completed Kostas Worley DPT, [id number] [address] [place] [address],[address], [place], [address], [facility] [place] 02/03/2020 15:41:08 02/03/20 64585: Therapeutic Exercise completed Kostas Worley DPT, [id number] [address] [place] [address],[address], [place], [address], [facility] [place] 02/02/2020 07:58:05 01/29/20 20 82431: Manual Therapy completed Kostas Worley DPT, [id number] [address] [facility],[address], [place], [address], [facility] [place] 01/27/2020 10:46:31 01/29/20 20 24358: Therapeutic Exercise completed Kostas Worley DPT, [id number] [address] [facility],[address], [place], [address], [facility] [place] 01/27/2020 10:46:31 01/26/20 36044: Manual Therapy completed Kostas Worley DPT, [id number] [address] [facility],[address], [place], [address], [facility] [place] 01/26/2020 07:43:55 01/26/20 88808: Therapeutic Exercise completed Kostas Worley DPT, [id number] [address] [facility],[address], [place], [address], [facility] 01/26/2020 07:43:55 01/22/20 00855: Manual Therapy completed Kostas Worley DPT, [id number] [address] [facility],[address], [place], [address], [facility] [place] 01/21/2020 07:49:15 01/22/20 87034: Therapeutic Exercise completed Kostas Worley DPT, [id number] [address] [facility],[address], [place], [address], [facility] 01/21/2020 07:49:15 01/20/20 07204: Manual Therapy completed Kostas Worley DPT, [id number] [address] [facility],[address], [place], [address], [facility] [place] 2020 11:34:14 01/20/20 06198: Therapeutic Exercise completed Kostas Worley DPT, [id number] [address] [facility],[address], [place], [address], [facility] [place] 2020 11:34:12 01/15/20 20 78756: Manual Therapy completed Kostas Worley DPT, [id number] [address] [facility],[address], [place], [address], [facility] 01/14/2020 14:21:05 01/15/20 20 34108: Therapeutic Exercise completed Kostas Worley DPT, [id number] [address] [facility],[address], [place], [address], [facility] 01/14/2020 14:21:05 01/13/20 20 73226: Manual Therapy completed Kostas Worley DPT, [id number] [address] [facility],[address], [place], [address], [facility] 01/12/2020 13:59:40 01/13/20 20 58590: Therapeutic Exercise completed Kostas Worley DPT, [id number] [address] [facility],[address], [place], [address], [facility] 01/12/2020 14:01:07 01/07/20 20 19554: Manual Therapy completed Kostas Worley DPT, [id number] [address] [facility],[address], [place], [address], [facility] 01/07/2020 11:13:57 01/07/20 20 Medicare Eval - Documentation of Current Medications completed Kostas Worley DPT, [id number] [address] [facility],[address], [place], [address], [facility] [place] 01/04/2020 15:47:08 01/07/20 20 Medicare Eval completed Kostas Worley DPT, [id number] [address] [facility],[address], [place], [address], [facility] [place] 01/04/2020 15:47:08 01/07/20 20 Medicare Eval - Functional Outcome Assessment completed Kostas Worley DPT, [id number] [address] [facility],[address], [place], [address], [facility] 01/04/2020 15:47:08 01/07/20 20 Medicare Eval - BMI 18-25 completed Kostas Worley DPT, [id number] [address] [facility],[address], [place], [address], [facility] 01/04/2020 15:47:09 01/07/20 20 61213: Therapeutic Exercise completed Kostas Worley DPT, [id number] [address] [facility],[address], [place], [address], [facility] 01/07/2020 11:13:38 12/30/19 20 Suture/Staple removal completed Joan Yoder [facility], [place] 12/30/2019 11:03:49 12/14/19 20 Knee surgery completed Tessa Eid [facility], [place] 10/11/2021 11:26:19 10/12/19 00 Hysterectomy [address] Tessa Eid [facility] 10/11/2021 11:26:19 08/20/18 85 Appendectomy completed Tessa [facility], [place] 10/11/2021 11:26:19 07/14/18 83 [place] teeth extraction completed Tessa [facility] 10/11/2021 11:26:19 Imaging Results None recorded. Procedure Notes None recorded. Medical Equipment None Reported. Allergies Allergen ID Allergen Name Allergen Category Reaction Reaction Severity Criticality Documentation Date Start Date Code Code System Note Provider Name and Address Organization Details Recorded Time 662518 Product containin g penicilli n (product) medicatio n nausea moderate Not available 10/09/20212021 96783 8001 SNOMED Not Available [facility] 2 01:01:45 Medications Name Sig Start Date Stop Date Status Note LastModified by Organization Details LastModified Time Miralax 17 gram oral powder packet Take 17 g by oral route. 12/27 completed Not Available Not Available Not Available losartan 50 mg tablet TAKE ONE TABLET BY MOUTH EVERY MORNING active Not Available Not Available No t Available amoxicillin 500 mg capsule TAKE ONE CAPSULE BY MOUTH EVERY 6 HOURS UNTIL COMPLETE 10/11 completed Not Available Not Available Not Available anastrozole 1 mg tablet TAKE ONE TABLET BY MOUTH ONE TIME DAILY active Not Available Not Available No t Available Colace 100 mg capsule Take 1 tablet every 12 hours as needed for constipat ion 02/05 completed Not Available Not Available Not Available oxybutynin chloride ER 15 mg tablet,exte nded release 24 hr TAKE ONE TABLET BY MOUTH EVERY MORNING active Not Available Not Available No t Available Carafate 100 mg/mL oral suspension Take 1 g by oral route. 10/06 completed Not Available Not Available Not Available Maxalt-[employer] ACC[employer] REPRESENTATIVE 10 mg disintegrat ing tablet 10 mg by oral route. 2021 active Not Available Not Available Not Avai lable aspirin 325 mg tablet Take 325 mg by oral route. 03/16 completed Not Available Not Available Not Available hydrocodone 5 mg-acetamin ophen 325 mg tablet TAKE ONE TABLET BY MOUTH EVERY 6 HOURS NEEDED FOR PAIN 10/06 completed Not Available Not Available Not Available vitamin E 100 unit capsule Take 100 [iu]s by oral route. 10/06 completed Not Available Not Available Not Available meloxicam 15 mg tablet TAKE ONE TABLET BY MOUTH ONE TIME DAILY NEEDED active Not Available Not Available No t Available rizatriptan 10 mg tablet TAKE ONE TABLET BY MOUTH ONE TIME DAILY NEEDED , MAY REPEAT IN 2 HOURS IF NEEDED active Not Available Not Available No t Available Esther 60 mg tablet Take 60 mg by oral route. 10/06 completed Not Available Not Available Not Available topiramate 25 mg tablet TAKE TWO TABLETS BY MOUTH TWICE A DAY active Not Available Not Available No t Available prochlorper azine maleate 10 mg tablet TAKE ONE TABLET BY MOUTH EVERY 4 TO 6 HOURS NEEDED FOR NAUSEA active Not Available Not Available No t Available ciprofloxac in 500 mg tablet TAKE ONE TABLET BY MOUTH TWICE A DAY FOR 7 DAYS 12/02 completed Not Available Not Available Not Available sulfamethox azole 800 mg-trimetho prim 160 mg tablet TAKE ONE TABLET BY MOUTH EVERY 12 HOURS FOR 10 DAYS 04/25 completed Not Available Not Available Not Available tramadol 50 mg tablet TAKE ONE TABLET BY MOUTH EVERY 4 TO 6 HOURS NEEDED FOR PAIN active Not Available Not Available No t Available lidocaine-p rilocaine 2.5 %-2.5 % topical cream APPLY A SMALL AMOUNT TO PORT SITE DAILY NEEDED 60 MINUTES PRIOR TO USE active Not Available Not Available No t Available pantoprazol e 20 mg tablet,carmelo yed release TAKE ONE TABLET BY MOUTH ONE TIME DAILY active Not Available Not Available No t Available Nexium 20 mg capsule,del ayed release Take 20 mg by oral route. 10/06 completed Not Available Not Available Not Available Dulcolax (bisacodyl) 10 mg rectal suppository Insert 10 mg by rectal route. 12/27 completed Not Available Not Available Not Available Zofran 4 mg tablet Take 1 tablet every 12 hours as needed for nausea 02/05 completed Not Available Not Available Not Available oxycodone-a cetaminophe n 5 mg-325 mg tablet TAKE ONE TABLET BY MOUTH EVERY 4 TO 6 HOURS 04/25 completed Not Available Not Available Not Available potassium chloride ER 20 mEq tablet,exte nded release(par t/cryst) TAKE ONE TABLET BY MOUTH ONE TIME DAILY FOR 7 DAYS active Not Available Not Available No t Available aspirin 325 mg tablet,carmelo yed release Take 1 tablet twice a day by oral route for 28 days. 04/25 completed Not Available Not Available Not Available topiramate 25 mg sprinkle capsule TAKE ONE CAPSULE BY MOUTH THREE TIMES A DAY 10/06 completed Not Available Not Available Not Available hyoscyamine 0.125 mg disintegrat ing tablet DISSOLVE ONE TABLET BY MOUTH EVERY 4 HOURS NEEDED FOR CRAMPING 10/06 completed Not Available Not Available Not Available cephalexin 500 mg capsule TAKE 4 CAPSULES BY MOUTH 1-2 HOURS PRIOR TO PROCEDURE active Not Available Not Available No t Available simvastatin 20 mg tablet TAKE ONE TABLET BY MOUTH ONE TIME DAILY active Not Available Not Available No t Available naproxen sodium 550 mg tablet TAKE ONE TABLET BY MOUTH THREE TIMES A DAY active Not Available Not Available No t Available lidocaine 5 % topical patch APPLY TWO PATCHES TOPICALLY ONE TIME DAILY FOR 30 DAYS 12/02 completed Not Available Not Available Not Available losartan 25 mg tablet TAKE ONE TABLET BY MOUTH EVERY MORNING active Not Available Not Available No t Available gabapentin 300 mg capsule TAKE ONE CAPSULE BY MOUTH ONE TIME DAILY AT BEDTIME 10/11 completed Not Available Not Available Not Available diclofenac sodium 75 mg tablet,carmelo yed release TAKE ONE TABLET BY MOUTH TWICE A DAY 10/06 completed Not Available Not Available Not Available mupirocin 2 % topical ointment Apply to the inside of each nostril twice a day for 5 days prior to surgery 02/05 completed Not Available Not Available Not Available gabapentin 100 mg capsule TAKE ONE CAPSULE BY MOUTH AT BEDTIME FOR 3 DAYS FOLLOWED BY TWO CAPSULES AT BEDTIME FOR 3 DAYS FOLLOWED BY THREE CAPSULES AT BEDTIME active Not Available Not Available No t Available methylpredn isolone 4 mg tablets in a dose pack TAKE DIRECTED ON PACKAGE active Not Available Not Available No t Available losartan 100 mg tablet TAKE ONE TABLET BY MOUTH ONE TIME DAILY 01/17 completed Not Available Not Available Not Available naproxen 500 mg tablet TAKE ONE TABLET BY MOUTH THREE TIMES A DAY active Not Available Not Available No t Available escitalopra m 10 mg tablet TAKE ONE TABLET BY MOUTH ONE TIME DAILY active Not Available Not Available No t Available escitalopra m 20 mg tablet TAKE ONE TABLET BY MOUTH ONE TIME DAILY active Not Available Not Available No t Available nitrofurant oin monohydrate /macrocryst als 100 mg capsule 12/27 completed Not Available Not Available Not Available Maxalt 10/06 completed Not Available Not Available Not Available oxybutynin 10/09 completed Not Available Not Available Not Available diclofenac 1 % topical gel Apply 1 reyonld by topical route. 10/06 completed Not Available Not Available Not Available Osteo Bi-Flex 10/06 completed Not Available Not Available Not Available Eliquis 2.5 mg tablet Take 1 tablet twice a day by oral route for 7 days. 02/05 completed Not Available Not Available Not Available Trokendi XR 50 mg capsule, extended release TAKE ONE CAPSULE BY MOUTH ONE TIME DAILY 10/06 completed Not Available Not Available Not Available Trokendi XR 25 mg capsule,ext ended release TAKE ONE CAPSULE BY MOUTH ONE TIME DAILY 12/02 completed Not Available Not Available Not Available Pennsaid 20 mg/gram/act uation (2 %) topical soln in metered-dos e pump APPLY 2 PUMPS (40MG) TO AFFECTED KNEE(S) TWICE DAILY 12/02 completed Not Available Not Available Not Available Fluad 2018- 65yr up(PF)45 mcg(15 mcgx3)/0.5 mL intramuscul ar syringe INJECT 0.5ML INTRAMUSC ULARLY ONCE 12/02 completed Not Available Not Available Not Available Fluad Quad 5513-2075(6 5yr up)(PF) 60 mcg (15 mcg x 4)/0.5mL IM syringe INJECT 0.5ML INTRAMUSC ULARLY ONCE 03/16 completed Not Available Not Available Not Available Vitals Date Recorded Body height Provider Name an d Address Organization Details Last Updated DateTime 03/14/20[address] [facility], [place] 03/14/2022 12:57:40 Date Recorded Body mass index (BMI) Body weight Provider Name and Address Organization Details Last Updated DateTime 05/02/2022 19.7 kg/m2 36927.12 g Joan Yoder [facility], [place] 05/02/2022 10:36:04 Date Recorded Body height Provider Name an d Address Organization Details Last Updated DateTime 05/02/[address] [facility] 05/02/2022 10:14:24 Social History Question Answer Notes LastModified by Organizat ion Details LastModified Time Tobacco Smoking Status Never Smoker Tessa cates [facility], [place] 10/11/2021 11:26:15 Accident Related Injury No Information not available 10/11/2021 Do You Have An Advance Directive? Yes Information not available 10/11/2021 Auto Related Injury? No Information not available 10/11/2021 Which Of Your Hands Is Dominant? Right Information not available 06/24/2019 Live Alone Or With Others? With Others Information not available 10/11/2021 Auto Related Injury? No Information not available 10/06/2021 Accident Related Injury? No Information not available 10/06/2021 Work Related Injury? No Information not available 10/06/2021 Represented By An Kick Plate Installer? No Information not available 06/24/2019 Marital Status Informatio n not available 10/11/2021 What Was The Date Of Your Most Recent Tobacco Screening? 10/11/2021 Information not available 10/11/2021 Have You Ever Been Counseled For Unhealthy Alcohol Use? Yes Information not available 01/17/2022 What Is Your Relationship Status? Information not available 10/11/2021 At What Age Did You Start Smoking Tobacco? 0 Information not available 10/11/2021 How Much Tobacco Do You Smoke? No Information not available 10/11/2021 What Types Of Sporting Activities Do You Participate In? Walking Information not available 10/11/2021 Has Tobacco Cessation Counseling Been Provided? No Information not available 10/11/2021 How Many Years Have You Smoked Tobacco? 0 Information not available 10/11/2021 Work Related Injury? No Information not available 10/11/2021 How Many Days In The Past Year Have You Consumed 4 Or More Drinks? 0 Information no t available 10/11/2021 Sex: Unknown Functional Status Question Answer Note LastModified by Organizat ion Details LastModified Time Do you or have you ever used any other forms of tobacco or nicotine? No Information not available 10/06/2021 What is your level of alcohol consumption? Occasional Information not available 06/24/2019 Are you currently employed? No Information not available 10/06/2021 Are you able to care for yourself independently? Yes Information not available 10/11/2021 What is your occupation? retired Information not available 06/24/2019 Do you or have you ever used e-cigarettes or vape? Never used electronic cigarettes Information not available 10/11/2021 Mental Status None recorded. Family History Relationship Description Onset Age of this Age Resolved Age Notes LastModified by Organization Details LastModified Time Mother Malignant neoplasm of brain 83 [email or web address] Not available 2021 10:56:16 Father Cerebrovascu lar accident 57 [email or web address] Not available 11:16:34 Sister Sister 82 [email or web address] Not available 2021 10:56:16 Medical History Condition Response HIV N High blood pressure Y Gout N Osteoarthritis Y Cardiac Stents N Claustrophobia Y Scoliosis N Thyroid disorder N MRSA N Rheumatoid arthritis N Blood clots N Migraines Y Depression N Currently ? N Bleeding tendency N ADD/ADHD N Motion Sickness N Crossed eyes/Lazy eye N Diabetes Type 2 N Charcot Connie Tooth N Sleep apnea, no CPAP required? N Peripheral Neuropathy N Respiratory problems N Anxiety Disorder N Diabetes Type 1 N Defibrillator/Pacemaker N Cancer Y Heart attack N Kidney disease/Kidney Stones N Stroke N Asthma N Seizure disorder N Psoriasis N Learning Disabilities N Cardiac problems N Bipolar Disorder N Ulcers/GERD N Hepatitis N Sleep apnea with use of CPAP? N Osteoporosis N Gynecological HistoryNo gynecological history recorded. Obstetrics History GPAL:G 0 P 0 0 0 0 Immunizations Vaccine Type Date Status Note Provider Nam e and Address Organization Details Recorded Time SARS-COV-2 (COVID-19) vaccine, UNSPECIFIED 1 completed Not Available [facility] 01/24/2022 01:01:45 SARS-COV-2 (COVID-19) vaccine, UNSPECIFIED 1 completed Not Available [facility] 01/24/2022 01:01:45 SARS-COV-2 (COVID-19) vaccine, UNSPECIFIED 2 completed Not Available [facility] 01/24/2022 01:01:45 Influenza, split virus, quadrivalent, preservative 1 completed Not Available [facility] 01/24/2022 01:01:45 pneumococcal polysaccharide PPV23 8 completed Not Available [facility] 01/24/2022 01:01:45 Past Encounters Encounter ID Performer Location Encounter Start Date Encounter Closed Date Diagnosis/Indication Diagnosis SNOMED-CT Code Diagnosis ICD10 Code Diagnosis IMO Codes Diagnosis Note [id number] LEONIDES GRACIA MD [facility] [address] [place] [address],[address] [place] [address] 06/24/2019 09:47:42 06/24/2019 10:55:00 Bilateral knee pain 5542864775 6102237 M25.561 M25.562 Osteoarthr itis of knee 261918831 M17.0 R>L [id number] LEONIDES GRACIA MD [facility] [address] [facility],[address] [place] [address] 07/16/2019 10:13:45 07/16/2019 11:22:47 Osteoarthritis of knee 453282919 M17.0 R>L [id number] LEONIDES GRACIA MD [facility] [address] [facility],[address] [place] [address] 12/03/2019 10:29:45 12/03/2019 11:11:53 Osteoarthritis of knee 078054315 M17.0 R>L [id number] LEONIDES GRACIA MD [facility] [address] [facility],[address] [place] [address] 12/30/2019 10:49:53 12/30/2019 16:46:18 History of right total knee replacement 8422242293 796209 Z96.651 s/p RTKA 12/14/19 Drug prescription 627670 000 Z76.89 [place] PDMP checked, no red flags in prescripti on history or MME/day. [id number] Kostas Worley DPT, [id number] PT [address],[place] [address] 01/07/2020 09:49:50 01/07/2020 13:45:02 Pain in right knee 4302775305 45763 M25.561 History of right total knee replacement 8409033367 854561 Z96.760 [id number] Kostas Worley DPT, [id number] [address],it e [address] [place] [address] 01/13/2020 15:49:37 01/14/2020 14:03:02 Pain in right knee 9630044478 89139 M25.561 History of right total knee replacement 6112991413 785339 Z96.792 [id number] Kostas Worley DPT, [id number] PT [address] e [address] [place] [address] 01/15/2020 10:53:41 01/15/2020 13:02:10 Pain in right knee 4566079925 53232 M25.561 History of right total knee replacement 9764239274 295258 Z96.940 [id number] Kostas Worley DPT, [id number] [place] [address] 2020 10:50:53 2020 13:42:19 Pain in right knee 9166419807 32311 M25.561 History of right total knee replacement 2594955143 666691 Z96.818 [id number] Kostas Worley DPT, [id number] [place] [address] 01/22/2020 10:48:36 01/22/2020 13:02:11 Pain in right knee 5478459278 38332 M25.561 History of right total knee replacement 4458013036 122928 Z96.743 [id number] Kostas Worley DPT, [id number] [place] [address] 01/26/2020 10:53:25 01/26/2020 14:00:10 Pain in right knee 5540627316 85911 M25.561 History of right total knee replacement 4218124783 054964 Z96.135 [id number] LEONIDES GRACIA MD [facility] [address] [place] [address],[address] [place] [address] 01/27/2020 10:52:46 01/27/2020 12:06:10 History of right total knee replacement 8899065117 712312 Z96.651 s/p RTKA 12/14/19 [id number] Kostas Worley DPT, [id number] [place] [address] 01/29/2020 13:22:27 01/29/2020 14:25:14 Pain in right knee 6208423766 82100 M25.561 History of right total knee replacement 8409977551 278922 Z96.729 [id number] Kostas Worley DPT, [id number] PT [address] [address] 02/03/2020 10:50:01 02/03/2020 12:14:51 Pain in right knee 9837822747 70175 M25.561 History of right total knee replacement 1156593137 056289 Z96.255 [id number] Kostas Worley DPT, [id number] PT [facility] [address] [facility] [address] [place] [address] 02/05/2020 10:50:16 02/05/2020 12:09:47 Pain in right knee 7679812452 80524 M25.561 History of right total knee replacement 8621548291 201581 Z96.545 [id number] Kostas Worley DPT, [id number] PT [facility] [address] [facility] [address] [place] [address] 02/10/2020 10:48:37 02/10/2020 11:45:25 Pain in right knee 9601218605 26891 M25.561 History of right total knee replacement 7266607050 153725 Z96.888 [id number] LEONIDES GRACIA MD [facility] [address] [facility],[address] [place] [address] 03/16/2020 11:10:03 03/16/2020 12:01:10 History of right total knee replacement 2461486096 039830 Z96.651 s/p RTKA 12/14/19 [id number] LEONIDES GRACIA MD [facility] [address] [facility],[address] [place] [address] 10/11/2021 10:54:34 10/11/2021 17:49:27 Pain of left knee joint 2833543500 06971 M25.562 History of right total knee replacement 1670324541 770092 Z96.651 s/p RTKA 12/14/19 Osteoarthr itis of left knee joint 9886566001 77132 M17.12 [id number] LEONIDES GRACIA MD [facility] [address] [facility],[address] [place] [address] 01/17/2022 12:56:41 01/17/2022 13:32:42 Osteoarthritis of left knee joint 5560530990 95946 M17.12 [id number] LEONIDES GRACIA MD [facility] [address] [facility] e [address] [place] [address] 02/07/2022 10:39:47 02/07/2022 11:41:27 History of left total knee replacement 2997715540 786731 Z96.652 s/p LTKA 01/22/22 [id number] Diego Juárez, PT, [id number] [address] [place] [address] 02/26/2022 13:02:24 02/26/2022 15:04:26 Osteoarthritis of left knee joint 2844075463 05151 M17.12 [id number] Diego Juárez, PT, [id number] PT [address] [place], [place] [address] 03/09/2022 12:56:16 03/09/2022 14:16:08 Osteoarthritis of left knee joint 4519478864 87471 M17.12 [id number] Diego Juárez, PT, [id number] PT [place] [address] 03/13/2022 11:55:46 03/13/2022 12:52:41 Osteoarthritis of left knee joint 9433426129 18890 M17.12 [id number] LEONIDES GRACIA MD [facility] [address] [facility],[address] [place] [address] 03/14/2022 12:56:32 03/14/2022 14:11:33 History of left total knee replacement 3961141367 017712 Z96.652 s/p LTKA 01/22/22 [id number] Diego Juárez, PT, [id number] [place] [address] 03/16/2022 12:54:07 03/16/2022 14:03:56 Osteoarthritis of left knee joint 2384306764 06396 M17.12 [id number] Diego Juárez, PT, [id number] [place] [address] 03/20/2022 11:52:44 03/20/2022 13:11:12 Osteoarthritis of left knee joint 3356093163 52265 M17.12 [id number] Diego Juárez, PT, [id number] PT [address] [place] [address] 03/27/2022 12:51:06 03/28/2022 14:07:07 Osteoarthritis of left knee joint 5449710055 37182 M17.12 [id number] LEONIDES GRACIA MD [facility] [address] [facility],[address] [place] [address] 05/02/2022 09:48:50 05/02/2022 15:02:04 History of bilateral total knee replacement 3160307130 347000 Z96.653 s/p RTKA 12/14/19/p LTKA 01/22/22 Drug prescription 440933 000 Z76.89 [place] PDMP checked, no red flags in prescripti on history or MME/day. Health Concerns Section Related Observation LastModified by Organization Detai ls LastModified Time None Recorded Concern Status LastModified by Organization Details LastModified Time None Recorded Advance Directives Directive Y: Payers Insurance Date Sequence Insurance Name Policy Number Policy Coleman Covered Member ID Coleman Member ID Guarantor Name 04/29/2022 1 [employer] (MEDICARE REPLACEMENT/ ADVANTAGE - PPO) [id number] Iliana Kenyon [id number] Iliana Kenyon 10/06/2021 1 [employer] (MEDICARE REPLACEMENT/ ADVANTAGE - PPO) [id number] Iliana Kenyon [id number] Iliana Kenyon Notes Date Note Type Note Provider Name and Address Organization Details Recorded Time 03/14/2022 text/html Fracture/Post-Op F/UReported by PatientHPIFor how are you feeling?, patient reportsimproving. For change in symptoms, patient reportsyes. For date of surgery, patient reportsdate of surgery: 01/15/22. For pain, patient reportsmildand4/10. For numbness, patient reportsimproving. For weakness, patient reportsimproving. For weight bearing, patient reportsfull. For assistive devices, patient reportscane. For do you need a work excuse?, patient reportsno. For have you started ot/pt?, patient reportsyes. For wound problems, (redness to proximal aspect of the incision). ELIUD Ramos - [facility] [place] 03/14/2022 19:06:40 05/02/2022 text/html Fracture/Post-Op F/UReported by PatientHPIFor how are you feeling?, patient reportsimproving. For change in symptoms, patient reportsyes. For date of surgery, patient reportsdate of surgery: 01/15/22. For pain, patient reportsmild. For numbness, patient reportsimproving. For weakness, patient reportsimproving. For weight bearing, patient reportsfull. For assistive devices, patient reportscane. For do you need a work excuse?, patient reportsno. For have you started ot/pt?, patient reportsyes. LEONIDES GRACIA MD [address] [facility],[address], [place], [address], [facility] [place] 05/07/2022 17:13:25 OBGyn Episode No OBEpisode recorded.
--- OUTSIDE RECORDS SUMMARY | 2025-04-07 15:53 | XMS_ITS | Encounter Summary ---
Author Organization [facility] Address [address] [place] [address] Phone Care Team Providers Care Identification Technician Name Role Phone Car Farmer MD Primary Care Provider + Souleymane Gonsalez MBBS Unavailable [phone] Encounter Details Date Type Department Care Team (Latest Contact Info) Description 03/09/2025 Orders Only [facility] [address] [place] [address] Tiara Jeff LPN [address] [place] [address] [email or web address] History of colonic polyps (Primary Dx) Social History Tobacco Use Types [...] Contact Info) Description 02/23/2025 Procedure Pass [facility] - [address] [place] [address] 04/16/2025 Procedure Pass [facility] Virtual Department [address] [place] [address] 04/16/2025 12:30 PM EST Hospital Encounter [facility] Virtual Department [address] [place] [address] Brodie Flores MD [address] [place] [address] 04/16/2025 12:30 PM EST - 04/16/2025 1:00 PM EST Surgery [facility]mitting [facility] Virtual Department [address] [place] [address] Brodie Flores MD [address] [place] [address] COLONOSCOPY 05/04/2025 2:15 PM EST Appointment [facility], [facility] Density - [address] [address] Dario Maldonado DO [address] [place] [address] 08/11/2025 2:00 PM EDT Office Visit [facility] [address] [place] [address] Souleymane Gonsalez MBBS 30 [place] [address] [email or web address] 09/07/2025 11:00 AM EDT Nurse Only [facility] [address] [place] [address] Dario Maldonado DO [address] [place] [address] 10/27/2025 1:15 PM EDT Appointment [address] [place] [address] Car Farmer MD [address] [place] [address] [email or web address] Scheduled Procedures Name Priority Associated Diagnoses Date/Ti ma COLONOSCOPY History of colonic polyps 04/16/2025 12:30 PM EST documented as of this encounter Visit Diagnoses Diagnosis History of colonic polyps- Primary Personal history of colonic polyps History of colonic polyps Personal history of colonic polyps documented in this encounter Care Teams Identification Technician Relationship Specialty Start Date End Date Car Farmer MD [address] [place] [address] [email or web address] PCP - General Internal Medicine 03/05/23 Souleymane Gonsalez MBBS [address] [place] [address] [email or web address] [email or web address] 03/15/23 documented as of this encounter Additional Source Comments The information contained in this document represents components of the legal health record. It is not the complete legal health record.[facility]
--- OUTSIDE RECORDS SUMMARY | 2025-04-07 15:53 | XMS_ITS | Data Portability ---
Author Organization [facility], [facility] Address [address] [place] [address] Care Team Providers Care Slasher Tender Name Role Phone CONRAD WEAVER Referring Provider [phone] DECLAN FLEMING OTHER WU DONOHUE JR OTHER HUONG STEPHEN OTHER JACKY BENJAMIN Medical Oncologist [phone] MAYDA LORENZ III Radiation Oncologist Assessment Encounter Date Assessment Date Assessment LastModified by Organization Details LastModified Time 11/24/2020 11/24/2020 70 year old female with a history of Stage IA (pT1cN0), ER/[place] positive, Her2 positive, 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 Completed adjuvant chemotherapy. Receiving maintenance Herceptin. Recently completed radiation. Currently on Anastrozole. 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 Completed adjuvant chemotherapy and Herceptin. Recently completed radiation. Currently on Anastrozole. 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 Completed adjuvant chemotherapy and Herceptin. Recently completed radiation. Currently on Anastrozole. 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 Completed adjuvant chemotherapy and Herceptin. Completed radiation. Currently on Anastrozole. 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 Completed adjuvant chemotherapy and Herceptin. Completed radiation. Currently on Anastrozole. [email or web address] Not available 11/08/2022 14:26:13 Plan of Treatment Reminders Order Date Submit Date Provider Last Modified By Organization Details Last Modified Time Details Appointments None recorded. Lab None recorded. Referral None recorded. Procedures None recorded. Surgeries None recorded. Imaging MAMMO, diagnostic, tomosynthes is, bilateral - due April 2022 (MD Jani Petit) 2021 022 [facility], [facility] , [place], [address], 12:30:22 MAMMO, diagnostic, tomosynthes is, bilateral - due April 2021 - status post lumpectomy & radiation (MD Jani Petit) 2020 021 [facility], [facility] [place], [address], 11:16:55 Medication Orders None recorded. Patient TargetsNo targets recorded. Patient Instructions Encounter Date Encounter Id Patient Instructions Last Modified By Organization Details Last Modified Time 11/24/[id number] Petit evaluated Iliana today as well. There was no evidence of malignancy on today's exam. Iliana will continue with monthly self breast exams and will follow up for any changes. She will be due for her first post-treatment mammogram in April 2021. Orders were sent to [facility] for a bilateral diagnostic. She was given information for Alissa, the roasterman at [facility], as she may be able to help Iliana combat the unintentional weight loss. She will continue follow up with Dr. Benjamin. We will plan to see Iliana in our office in 6 months, or sooner if needed. [email or web address] Not available 11/24/2020 15:53:52 06/05/2021 [id number] Iliana is doing well. There was no evidence of malignancy on today's exam. Dr. Petit removed Iliana's port in the office today without difficulty. She was instructed on post-procedure care. Iliana will continue with monthly self breast exams and will follow up for any changes. Her next mammogram will be due in April 2022. We will plan to see Iliana in our office in 6 months for an exam and supplemental screening ultrasound, or sooner if needed. [email or web address] Not available 06/05/2021 14:07:24 12/07/2021 [id number] Iliana is doing well. There was no evidence of malignancy on today's exam or ultrasound. She will continue with monthly self breast exams and will follow up for any changes. Iliana will be due for a bilateral diagnostic mammogram in April 2022. Orders were sent to [facility]. We will plan to see her in our office in 6 months, or sooner if needed. [email or web address] Not available 12/07/2021 11:25:05 06/11/2022 [id number] Iliana is doing well. There was no evidence of malignancy on today's exam or on her recent mammogram. Iliana will continue with monthly self breast exams and will follow up for any changes. We will plan to see her in our office in 6 months for an exam and supplemental screening ultrasound, or sooner if needed. After her next visit she plans to transition her care to another provider as she is moving to [place]. Dr. Santoyo was present in the office during the visit and was immediately available in Dr. Petit's absence. lmcdermott Not available 06/11/2022 11:24:27 11/08/2022 [id number] Iliana is doing well. There was no evidence of malignancy on today's exam or ultrasound. Iliana will continue with monthly self breast exams and will follow up for any changes. She will be due for her annual mammogram in April 2023, but plans to have moved to [place] by then and will obtain her future imaging there. She will plan to have her 6 month follow up care with her new provider there as well. She knows to call with any questions or concerns in the meantime. [email or web address] Not available 11/08/2022 14:30:52 Reason for Referral None Reported. Results Created Date Observation Date Name Description Value Unit Range Abnormal Flag Note LastModifiedBy Organization Detail LastModifiedTime 04/11/20 21 04/11/2021 MAMMO , diagn ostic , tomos ynthe sis, bilat eral No observ ation record ed. [email or web address] [facility] [address] [facility], [place], [address], 04/11/2021 11:16:55 12/08/19 22 12/07/2021 idalia KNOX No observ ation record ed. [email or web address] Not Available 2021 15:31:44 04/13/20 22 04/13/2022 MAMMO , diagn ostic , tomos ynthe sis, bilat eral No observ ation record ed. [email or web address] [facility] [address] [facility], [place], [address], 04/13/2022 12:30:22 11/09/19 23 11/08/2022 idalia KNOX No observ ation record ed. [email or web address] Not Available 2022 15:40:23 Result Notes None recorded. Procedures Surgical History Date Name Laterality Status Provider Name and Address Organization Details Recorded Time 11/09/19 23 A Breast Ultrasound (bilateral) completed GRAZYNA Edwards [address] [facility],[address], [place], [address], [place] [facility], 11/08/2022 14:24:21 04/13/20 22 Date of Last Mammogram completed Christie Ware [facility], 06/11/2022 11:03:42 12/08/19 22 A Breast Ultrasound (bilateral) completed GRAZYNA Edwards [address] [place] [address],[address], [place], [address], [facility] 12/07/2021 11:23:26 12/05/19 22 Orthopedic Surgery completed Abhay Knott [facility] 11/08/2022 14:04:41 06/05/19 22 Port Removal completed GRAZYNA Edwards [address], [place], [address], [facility] 06/05/2021 14:05:22 05/04/20 20 Breast Surgery completed Cristofer Wright [facility] 11/16/2020 11:30:21 03/25/20 20 Breast Aspiration I completed Jani Petit MD [address] [place] [address] Road,[address], [place], [address], [facility] 03/25/2020 19:43:39 03/25/20 20 A Breast Ultrasound (left) completed Jani Petit MD [address] [place] [address],[address] [facility], [place], [address], [facility] 03/25/2020 19:42:59 12/14/19 20 Orthopedic Surgery completed Deena Higgins [facility] 03/25/2020 15:07:55 05/06/18 85 Appendectomy completed Deena Higgins [facility] 03/25/2020 15:08:03 Imaging Results None recorded. Procedure Notes None recorded. Medical Equipment None Reported. Allergies No known drug allergies Medications Name Sig Start Date Stop Date Status Note LastModified by Organization Details LastModified Time diphe/lidoc /maalo/nyst a SWISH AND SWALLOW 5ML UP TO FIVE TIMES A DAY NEEDED active Not Available Not Available No t Available losartan 50 mg tablet TAKE ONE TABLET BY MOUTH EVERY MORNING active Not Available Not Available No t Available amoxicillin 500 mg capsule TAKE ONE CAPSULE BY MOUTH EVERY 6 HOURS UNTIL COMPLETE 06/05 completed Not Available Not Available Not Available anastrozole 1 mg tablet TAKE ONE TABLET BY MOUTH ONE TIME DAILY active Not Available Not Available No t Available oxybutynin chloride ER 15 mg tablet,exte nded release 24 hr TAKE ONE TABLET BY MOUTH EVERY MORNING active Not Available Not Available No t Available Stool Softener 100 mg capsule TAKE ONE CAPSULE BY MOUTH EVERY 12 HOURS NEEDED FOR CONSTIPAT ION active Not Available Not Available No t Available aspirin 325 mg tablet TAKE ONE TABLET BY MOUTH TWICE A DAY FOR 28 DAYS 03/25 completed Not Available Not Available Not Available hydrocodone 5 mg-acetamin ophen 325 mg tablet TAKE ONE TABLET BY MOUTH EVERY 6 HOURS NEEDED FOR PAIN 11/16 completed Not Available Not Available Not Available sucralfate 100 mg/mL oral suspension TAKE 10 ML BY MOUTH FOUR TIMES A DAY ON EMPTY STOMACH 1 HOUR BEFORE OR 2 HOURS AFTER MEALS. 06/08 completed Not Available Not Available Not Available meloxicam 15 mg tablet TAKE ONE TABLET BY MOUTH ONE TIME DAILY NEEDED active Not Available Not Available No t Available ondansetron HCl 4 mg tablet TAKE ONE TABLET BY MOUTH EVERY 12 HOURS NEEDED FOR NAUSEA active Not Available Not Available No t Available rizatriptan 10 mg tablet TAKE ONE TABLET BY MOUTH ONE TIME DAILY NEEDED , MAY REPEAT IN 2 HOURS IF NEEDED active Not Available Not Available No t Available topiramate 25 mg tablet TAKE TWO TABLETS BY MOUTH TWICE A DAY active Not Available Not Available No t Available prochlorper azine maleate 10 mg tablet TAKE ONE TABLET BY MOUTH EVERY 4 TO 6 HOURS NEEDED FOR NAUSEA 06/08 completed Not Available Not Available Not Available ciprofloxac in 500 mg tablet TAKE ONE TABLET BY MOUTH TWICE A DAY FOR 3 DAYS 11/24 completed Not Available Not Available Not Available sulfamethox azole 800 mg-trimetho prim 160 mg tablet TAKE ONE TABLET BY MOUTH EVERY 12 HOURS FOR 10 DAYS active Not Available Not Available No t Available tramadol 50 mg tablet TAKE ONE TABLET BY MOUTH EVERY 4 TO 6 HOURS NEEDED FOR PAIN active Not Available Not Available No t Available lidocaine-p rilocaine 2.5 %-2.5 % topical cream APPLY A SMALL AMOUNT TO PORT SITE DAILY NEEDED 60 MINUTES PRIOR TO USE 06/08 completed Not Available Not Available Not Available pantoprazol e 20 mg tablet,carmelo yed release TAKE ONE TABLET BY MOUTH ONE TIME DAILY active Not Available Not Available No t Available oxycodone-a cetaminophe n 5 mg-325 mg tablet TAKE ONE TABLET BY MOUTH EVERY 4 TO 6 HOURS active Not Available Not Available No t Available potassium chloride ER 20 mEq tablet,exte nded release(par t/cryst) TAKE ONE TABLET BY MOUTH ONE TIME DAILY FOR 7 DAYS 06/08 completed Not Available Not Available Not Available diphenhydra mine 50 mg/mL injection solution 06/08 completed Not Available Not Available Not Available topiramate 25 mg sprinkle capsule TAKE ONE CAPSULE BY MOUTH THREE TIMES A DAY 11/16 completed Not Available Not Available Not Available rizatriptan 10 mg disintegrat ing tablet TAKE ONE TABLET BY MOUTH AT THE ONSET OF HEADACHE; MAY REPEAT AFTER TWO HOURS; MAX DAILY DOSE OF TWO TABLETS 06/08 completed Not Available Not Available Not Available [...] Available Not Available No t Available losartan 25 mg tablet TAKE ONE TABLET BY MOUTH EVERY MORNING active Not Available Not Available No t Available gabapentin 300 mg capsule TAKE ONE CAPSULE BY MOUTH ONE TIME DAILY AT BEDTIME 06/08 completed Not Available Not Available Not Available diclofenac sodium 75 mg tablet,carmelo yed release TAKE ONE TABLET BY MOUTH TWICE A DAY 06/08 completed Not Available Not Available Not Available mupirocin 2 % topical ointment APPLY TO THE INSIDE OF EACH NOSTRIL TWO TIMES A DAY FOR 5 DAYS PRIOR TO SURGERY active Not Available Not Available No t Available gabapentin 100 mg capsule TAKE ONE [...] ONE TABLET BY MOUTH ONE TIME DAILY 06/08 completed Not Available Not Available Not Available naproxen 500 mg tablet active Not Available Not Available Not Available mometasone 0.1 % topical cream APPLY TO THE AFFECTED AREA(S) TOPICALLY TWICE DAILY 06/08 completed Not Available Not Available Not Available escitalopra m 10 mg tablet TAKE ONE TABLET BY MOUTH ONE TIME DAILY 06/08 completed Not Available Not Available Not Available escitalopra m 20 mg tablet TAKE ONE TABLET BY MOUTH ONE TIME DAILY active Not Available Not Available No t Available nitrofurant oin monohydrate /macrocryst als 100 mg capsule TAKE ONE CAPSULE BY MOUTH TWICE A DAY FOR 7 DAYS 03/25 completed Not Available Not Available Not Available Vitamin C 06/08 completed Not Available Not Available Not Available anastrozole 11/24 completed Not Available Not Available Not Available Maxalt 06/08 completed Not Available Not Available Not Available Centrum Silver 06/08 completed Not Available Not Available Not Available Esther 06/08 completed Not Available Not Available Not Available Herceptin 12/07 completed Not Available Not Available Not Available Nexium 06/08 completed Not Available Not Available Not Available diclofenac 1 % topical gel APPLY TWO GRAMS TO THE AFFECTED AREA(S) TOPICALLY FOUR TIMES DAILY FOR 30 DAYS 03/25 completed Not Available Not Available Not Available Eliquis 2.5 mg tablet TAKE ONE TABLET BY MOUTH TWICE A DAY FOR 7 DAYS active Not Available Not Available No t Available Osteo Bi-Flex (5-Loxin) 06/08 completed Not Available Not Available Not Available Fluad Quad (6 5yr up)(PF) 60 mcg (15 mcg x 4)/0.5mL IM syringe INJECT 0.5ML INTRAMUSC ULARLY ONCE 11/16 completed Not Available Not Available Not Available Vitals Date Recorded Body height Body mass index (BMI) Body weight Provider Name and Address Organization Details Last Updated DateTime 06/05/2021 162.56 cm 19.6 kg/m2 52259.53 g Lydia Damian [facility], 06/05/2021 13:31:51 Date Recorded Body height Body mass index (BMI) Body weight Provider Name and Address Organization Details Last Updated DateTime 06/11/2022 162.56 cm 19.6 kg/m2 44046.53 g Christie Ware [facility], 06/11/2022 11:01:44 Date Recorded Body height Body mass index (BMI) Body weight Provider Name and Address Organization Details Last Updated DateTime 11/08/2022 162.56 cm 19.6 kg/m2 50924.53 g Abhay Knott [facility], 11/08/2022 14:03:57 Date Recorded Body height Body mass index (BMI) Body weight Provider Name and Address Organization Details Last Updated DateTime 11/24/2020 162.56 cm 18.2 kg/m2 99401.79 rick Wright [facility], 11/24/2020 11:01:41 Date Recorded Body height Body mass index (BMI) Body weight Provider Name and Address Organization Details Last Updated DateTime 12/07/2021 162.56 cm 19.6 kg/m2 64773.53 rick Frost [facility], 12/07/2021 11:00:05 Social History Question Answer Notes LastModified by [employer] Details LastModified Time Tobacco Smoking Status [facility], 03/25/2020 15:07:15 What Is Your Level Of Caffeine Consumption? Moderate Information not available 03/25/2020 In The 14 Days Before Symptom Onset, Have You Had Close Contact With A Laboratory-confir med COVID-19 While That Case Was Ill? No Information not available 11/08/2022 In The 14 Days Before Symptom Onset, Have You Had Close Contact With A Person Who Is Under Investigation For COVID-19 While That Person Was Ill? No Information not available 11/08/2022 Have You Been To An Area Known To Be High Risk For COVID-19? No Information not available 11/08/2022 Marital Status Kwame Kenyon Information not available 11/08/2022 What Is Your Relationship Status? Kwame Kenyon [email or web address] Information not available 06/05/2021 Sex: Unknown Functional Status Question Answer Note LastModified by [employer] Details LastModified Time Do you use any illicit or recreational drugs? No [email or web address] Information not available 12/07/2021 Do you or have you ever used any other forms of tobacco or nicotine? No Information not available 11/08/2022 What is your level of alcohol consumption? Occasional Information not available 03/25/2020 What is your occupation? Retired Information not available 03/25/2020 Mental Status None recorded. Family History Relationship Description Onset Age of this Age Resolved Age Notes LastModified by Organization Details LastModified Time Mother Astrocytoma of brain 80 83 Not available 2019 15:06:40 Mother Malignant neoplasm of breast 75 83 Not available 2019 15:06:56 Sister Malignant neoplasm of breast 76 84 Not available 2019 15:07:10 Medical History Condition Response Coronary Artery Disease N Gout N Other N Kidney Stones Y Depression N COPD N Anxiety Disorder N Arthritis Y Cancer Y Stroke N HIV/AIDS N Kidney Disease N Migraines Y Skin Problems N Asthma N Seizures N GERD/Reflux N Hepatitis N Pulmonary Embolism N PCOS N Irregular heart rate/rhythm N Thyroid Disease N Deep Vein Thrombosis N High Cholesterol Y Liver Disease N Autoimmune Disease N Anemia N Diabetes N Bleeding/Clotting Disorder N Heart Murmur N Diverticulitis N Sleep Apnea N Heart Disease N Hypertension Y Osteoporosis N Gynecological History Statement/Question Response If Post Menopausal, Age at Menopause 47 Date of Last Mammogram 04/13/2022 1 Age at Menarche 13 Age at First Child 42 Para 1 Date of last mammogram 04/11/2021 Hormone Replacement Therapy N Obstetrics History GPAL:G 0 P 0 0 0 0 Past Encounters Encounter ID Performer Location Encounter Start Date Encounter Closed Date Diagnosis/Indication Diagnosis SNOMED-CT Code Diagnosis ICD10 Code Diagnosis IMO Codes Diagnosis Note [id number] Jani Petit MD [facility] [address] [address] 03/25/2020 14:25:38 03/25/2020 16:00:26 Primary malignant neoplasm of upper outer quadrant of female breast 27929158 C50.419 [id number] Jani Petit MD [facility] [address] [address] 05/10/2020 14:17:31 05/10/2020 14:18:00 [id number] Jani Petit MD [facility] [address] [address] 05/20/2020 12:54:59 05/20/2020 13:24:14 Postoperative follow-up visit 399559010 Z09 Primary ma lignant neoplasm of upper outer quadrant of female breast 21894412 C50.411 [id number] Jani Petit MD [facility] [address] [address] 06/16/2020 14:54:39 06/16/2020 14:55:24 [id number] GRAZYNA Edwards [facility] [address] [address] 11/24/2020 10:47:33 11/24/2020 11:37:01 Primary malignant neoplasm of upper outer quadrant of female breast 57997130 C50.411 Z17.0 Z92.21 Z92.3 Z92.22 Z79.811 [id number] GRAZYNA Edwards [facility] [address] [address] 06/05/2021 13:16:14 06/05/2021 14:08:14 Primary malignant neoplasm of upper outer quadrant of female breast 58442907 C50.411 Z17.0 Z92.21 Z92.3 Z92.22 Z79.811 Extremely dense breast composition 507680774 R92.2 [id number] GRAZYNA Edwards [facility] [address] [address] 12/07/2021 10:44:16 12/07/2021 11:17:51 Primary malignant neoplasm of upper outer quadrant of female breast 51205793 C50.411 Z17.0 Z92.21 Z92.3 Z92.22 Z79.811 Extremely dense breast composition 746261102 R92.2 [id number] GRAZYNA Edwards [facility] [address] [address] 06/11/2022 10:56:32 06/11/2022 11:21:24 Primary malignant neoplasm of upper outer quadrant of female breast 18145301 C50.411 Z17.0 Z92.21 Z92.3 Z92.22 Z79.811 Extremely dense breast composition 310391911 R92.2 [id number] GRAZYNA Edwards [facility] [address] [address] 11/08/2022 13:57:14 11/08/2022 14:19:21 Primary malignant neoplasm of upper outer quadrant of female breast 29916330 C50.411 Z17.0 Z92.21 Z92.3 Z92.22 Z79.811 Extremely dense breast composition 580701706 R92.2 Health Concerns Section Related Observation LastModified by Organization Detai ls LastModified Time None Recorded Concern Status LastModified by Organization Details LastModified Time None Recorded Advance Directives Directive None Recorded Payers Insurance Date Sequence Insurance Name Policy Number Policy Coleman Covered Member ID Coleman Member ID Guarantor Name 11/12/2022 1 [employer] (MEDICARE REPLACEMENT/ ADVANTAGE - PPO) [id number] Iliana Kenyon [id number] Iliana Kenyon 06/05/2021 1 [employer] (MEDICARE REPLACEMENT/ ADVANTAGE - PPO) [id number] Iliana Kenyon [id number] Iliana Kenyon Notes Date Note Type Note Provider Name and Address Organization Details Recorded Time 1 text/html Breast Cancer (Right)Reported by PatientHPIFor reason for visit, patient reports6 month follow up (finished radiation 10/18/20). For onset/timing, patient reports>3 months. For location, patient reportsrightandupper outer quadrant. For identified by, patient reportsmammogram. For quality/descriptive features, patient reportssize 8 mm. For procedures/surgery, patient reportsdate of biopsy: 03/17/20 core,date of surgery: 05/03/20,history of right __ breast cancer treated with __ lumpectomy,size: 14 mm,closest margin(s) 0.8 cm medial, andsentinel lymph node biopsy negative 0/2. For pathology, patient reportsstage ia ____pt1c, n0, m0,grade ii,invasive ductal carcinoma,ductal carcinoma in situ __,er: 89,pr: 18,her 2/jose: 3+, andki-67: 11(adh present). For treatment, patient reportsadjuvant chemotherapy,current use of hormone modulation therapy, andwhole breast radiation(currently receiving maintenance herceptin). For associated symptoms, patient reportsno skin changes,no nipple changes,no nipple discharge,no masses,no nipple retraction,no associated pain, andno breast swelling. For context/breast history, patient reportsgene negative (vus msh3),family history of breast cancer, andhistory of estrogen use.She reports weight loss and fatigue, both of which she has discussed with Dr. Benjamin. Iliana reports she recently started drinking Boost to try to combat the weight loss.ROS as noted in the HPI Jani Petit MD [address] [place] [address],[address], [place], [address], [facility] 11/25/2020 13:48:53 2 text/html Breast Cancer (Right)Reported by PatientHPIFor reason for visit, patient reports6 month follow up. For onset/timing, patient reports>3 months. For location, patient reportsrightandupper outer quadrant. For identified by, patient reportsmammogram. For quality/descriptive features, patient reportssize 8 mm. For procedures/surgery, patient reportsdate of biopsy: 03/17/20 core,date of surgery: 05/03/20,history of right __ breast cancer treated with __ lumpectomy,size: 14 mm,closest margin(s) 0.8 cm medial, andsentinel lymph node biopsy negative 0. For pathology, patient reportsstage ia ____pt1c, n0, m0,grade ii,invasive ductal carcinoma,ductal carcinoma in situ __,er: 89,pr: 18,her 2/jose: 3+, andki-67: 11(adh present). For treatment, patient reportsadjuvant chemotherapy (plus herceptin),current use of hormone modulation therapy, andwhole breast radiation. For associated symptoms, patient reportsno skin changes,no nipple changes,no nipple discharge,no masses,no nipple retraction,no associated pain, andno breast swelling. For context/breast history, patient reportsgene negative (vus msh3),family history of breast cancer, andhistory of estrogen use.Iliana had a bilateral diagnostic mammogram 04/11/21 which was read as benign, birads 2 (ext dense). The radiologist recommended another diagnostic study in a year.ROS as noted in the HPI Iliana presents for 6 month follow up. She is requesting to have her port removed today. Jani Petit MD [address] [place] [address],[address], [place], [address], [facility], 06/07/2021 08:52:27 2 text/html Breast Cancer (Right)Reported by PatientHPIFor reason for visit, patient reports6 month follow up. For onset/timing, patient reports>3 months. For location, patient reportsrightandupper outer quadrant. For identified by, patient reportsmammogram. For quality/descriptive features, patient reportssize 8 mm. For procedures/surgery, patient reportsdate of biopsy: 03/17/20 core,date of surgery: 05/03/20,history of right __ breast cancer treated with __ lumpectomy,size: 14 mm,closest margin(s) 0.8 cm medial, andsentinel lymph node biopsy negative 0/2. For pathology, patient reportsstage ia ____pt1c, n0, m0,grade ii,invasive ductal carcinoma,ductal carcinoma in situ __,er: 89,pr: 18,her 2/jose: 3+, andki-67: 11(adh present). For treatment, patient reportsadjuvant chemotherapy (plus herceptin),current use of hormone modulation therapy, andwhole breast radiation. For associated symptoms, patient reportsno skin changes,no nipple changes,no nipple discharge,no masses,no nipple retraction,no associated pain, andno breast swelling. For context/breast history, patient reportsgene negative (vus msh3),family history of breast cancer, andhistory of estrogen use.Iliana had a bilateral diagnostic mammogram 04/11/21 which was read as benign, birads 2 (ext dense). The radiologist recommended another diagnostic study in a year.ROS as noted in the HPI Iliana presents for 6 month follow up. She has no breast complaints. She is planning to move to [place] next year. Jani Petit MD [address] [place] [address],[address], [place], [address], [facility], 12/08/2021 14:39:59 3 text/html Breast Cancer (Right)Reported by PatientHPIFor reason for visit, patient reports6 month follow up. For onset/timing, patient reports>3 months. For location, patient reportsrightandupper outer quadrant. For identified by, patient reportsmammogram. For quality/descriptive features, patient reportssize 8 mm. For procedures/surgery, patient reportsdate of biopsy: 03/17/20 core,date of surgery: 05/03/20,history of right __ breast cancer treated with __ lumpectomy,size: 14 mm,closest margin(s) 0.8 cm medial, andsentinel lymph node biopsy negative 0/2. For pathology, patient reportsstage ia ____pt1c, n0, m0,grade ii,invasive ductal carcinoma,ductal carcinoma in situ __,er: 89,pr: 18,her 2/jose: 3+, andki-67: 11(adh present). For treatment, patient reportsadjuvant chemotherapy (plus herceptin),current use of hormone modulation therapy, andwhole breast radiation. For associated symptoms, patient reportsno skin changes,no nipple changes,no nipple discharge,no masses,no nipple retraction,no associated pain, andno breast swelling. For context/breast history, patient reportsgene negative (vus msh3),family history of breast cancer, andhistory of estrogen use.ROS as noted in the HPI Iliana presents for 6 month follow up. She has no breast complaints. She had a benign mammogram in April 2022. She is planning to move to [place] this summer. Reji Santoyo MD [address] [place] [address],[address], [place], [address], [facility], 06/11/2022 17:52:35 3 text/html Breast Cancer (Right)Reported by PatientHPIFor reason for visit, patient reports6 month follow up. For onset/timing, patient reports>3 months. For location, patient reportsrightandupper outer quadrant. For identified by, patient reportsmammogram. For quality/descriptive features, patient reportssize 8 mm. For procedures/surgery, patient reportsdate of biopsy: 03/17/20 core,date of surgery: 05/03/20,history of right __ breast cancer treated with __ lumpectomy,size: 14 mm,closest margin(s) 0.8 cm medial, andsentinel lymph node biopsy negative 0/2. For pathology, patient reportsstage ia ____pt1c, n0, m0,grade ii,invasive ductal carcinoma,ductal carcinoma in situ __,er: 89,pr: 18,her 2/jose: 3+, andki-67: 11(adh present). For treatment, patient reportsadjuvant chemotherapy (plus herceptin),current use of hormone modulation therapy, andwhole breast radiation. For associated symptoms, patient reportsno skin changes,no nipple changes,no nipple discharge,no masses,no nipple retraction,no associated pain, andno breast swelling. For context/breast history, patient reportsgene negative (vus msh3),family history of breast cancer, andhistory of estrogen use.ROS as noted in the HPI Iliana presents for 6 month follow up. She has no breast complaints. She is planning to move to [place] as soon as her house here sells. Jani Petit MD [address] [place] [address],[address], [place], [address], [facility], 11/09/2022 13:25:20 OBGyn Episode No OBEpisode recorded.
--- OUTSIDE RECORDS SUMMARY | 2025-04-07 15:53 | XMS_ITS | Encounter Summary ---
Author Organization [facility] Address [address] [facility] [address] [place] [address] Phone Care Team Providers Care Printing Screen Assembler Name Role Phone Car Farmer MD Primary Care Provider + Souleymane Gonsalez MBBS Unavailable [phone] Encounter Details Date Type Department Care Team (Late st Contact Info) Description 07/10/2024 Procedure Pass [facility] Endoscopy Admitting Dept Virtual Department [address] [place] [address] Social History Tobacco Use Types Packs/Day Years [...] st Contact Info) Description 02/23/2025 Procedure Pass [facility] - [address] [place] [address] 04/16/2025 Procedure Pass [facility] Endoscopy Admitting Dept Virtual Department [address] [place] [address] 04/16/2025 12:30 PM EST Hospital Encounter [facility] Admitting Dept Virtual Department [address] [place] [address] Brodie Flores MD [address] [place] [address] 04/16/2025 12:30 PM EST - 04/16/2025 1:00 PM EST Surgery [facility] Endoscopy Admitting Dept Virtual Department [address] [place] [address] Brodie Flores MD [address] [place] [address] COLONOSCOPY 05/04/2025 2:15 PM EST Appointment [facility], Bone Density - [address] [address] Dario Maldonado DO [address] [place] [address] 08/11/2025 2:00 PM EDT Office Visit [facility] at [address] [address] Souleymane Gonsalez MBBS [address] [place] [address] [email or web address] 09/07/2025 11:00 AM EDT Nurse Only [facility] [address] [place] [address] Dario Maldonado DO [address] [place] [address] [email or web address] 10/27/2025 1:15 PM EDT Appointment [address] [place] [address] Car Farmer MD [address] [place] [phone] [email or web address] Scheduled Procedures Name Priority Associated Diagnoses Date/Ti me COLONOSCOPY History of colonic polyps 04/16/2025 12:30 PM EST documented as of this encounter Visit Diagnoses Not on filedocumented in this encounter Care Teams Printing Screen Assembler Relationship Specialty Start Date End Date Car Farmer MD [address] [place] [address] [email or web address] PCP - General Internal Medicine 03/05/23 Souleymane Gonsalez MBBS 5 [place] [address] [email or web address] Medical Oncology 03/15/23 documented as of this encounter Additional Source Comments The information contained in this document represents components of the legal health record. It is not the complete legal health record.[facility]
--- OUTSIDE RECORDS SUMMARY | 2025-04-07 15:53 | XMS_ITS | Encounter Summary ---
Author Organization [facility] Address [address] [place] [address] Phone Care Team Providers Care Color Weigher Name Role Phone Car Farmer MD Primary Care Provider + Souleymane Gonsalez MB Unavailable Reason for Referral * MRI/CAT Scan - Closed Specialty Diagnoses / Procedures Referred By Maria Ines moya Referred To Contact Radiology Diagnoses Weight loss Procedures CT Abdomen/Pelvis CHG CT SCAN,ABDOMENT AND PELVIS,W CONTRAST Brodie Flores MD Phone: tel: fax: [email or web address] Referral ID Status Reason Start Date Expiration Date Visits Re quested Visits Authorized [id number] Closed 08/17/2024 02/13/2025 1 1 Encounter Details Date Type Department Care Team (Latest Contact Info) Description 08/11/2024 Transcribe Orders Virtual Department 30 [place] [address] Brodie Flores MD [address] [place] [address] [email or web address] Weight loss (Primary Dx) Social History Tobacco [...] st Contact Info) Description 02/23/2025 Procedure Pass [address] [place] [address] 04/16/2025 Procedure Pass [facility]oscopy Admitting Dept Virtual Department [address] [place] [address] 04/16/2025 12:30 PM EST Hospital Encounter [facility]oscopy Admitting Dept Virtual Department [address] [place] [address] Brodie Flores MD [address] [place] [address] 04/16/2025 12:30 PM EST - 04/16/2025 1:00 PM EST Surgery [facility] Endoscopy Admitting Dept Virtual Department [address] [place] [address] Brodie Flores MD [address] [place] [address] [email or web address] COLONOSCOPY 05/04/2025 2:15 PM EST Appointment [facility], Bone Density - [address] [address] Dario Maldonado [address] [address] 08/11/2025 2:00 PM EDT Office Visit [facility] at [address] [address] Souleymane Gonsalez MBBS [address] [place] [address] [email or web address] 09/07/2025 11:00 AM EDT Nurse Only [facility] [address] [place] [address] [place] [address] Dario Maldonado, [address] [address] 10/27/2025 1:15 PM EDT Appointment [facility] - [address] [place] [address] Car Farmer MD [address] [place] [address] [email or web address] Scheduled Procedures Name Priority [...] of weight Weight loss Loss of weight History of colonic polyps Personal history of colonic polyps documented in this encounter Care Teams Color Weigher Relationship Specialty Start Date End Date Car Farmer MD [address] [place] [address] [email or web address] PCP - General Internal Medicine 03/05/23 Souleymane Gonsalez MBBS [address] [place] [address] [email or web address] Medical Oncology 03/15/23 documented as of this encounter Additional Source Comments The information contained in this document represents components of the legal health record. It is not the complete legal health record.[facility]
--- OUTSIDE RECORDS SUMMARY | 2025-04-07 15:53 | XMS_ITS | Encounter Summary ---
Author Organization [facility] Address [address] [facility] [address] [place] [address] Phone Care Team Providers Care Floor Tiling Professional Name Role Phone Car Farmer MD Primary Care Provider + Souleymane Gonsalez MBBS Unavailable [phone] Encounter Details Date Type Department Care Team (Late st Contact Info) Description 07/09/2024 Transcribe Orders [facility] [address] [place] [address] Brodie Flores MD [address] [facility] 2 [place] [address] [email or web address] Social History Tobacco Use Types Packs/Day Years [...] Contact Info) Description 02/23/2025 Procedure Pass [facility] - [address] [place] [address] 04/16/2025 Procedure Pass [facility] Endoscopy Admitting Dept Virtual Department [address] [place] [address] 04/16/2025 12:30 PM EST Hospital Encounter [facility] Endoscopy Admitting Dept Virtual Department [address] [place] [address] Brodie Flores MD [address] [place] [address] 04/16/2025 12:30 PM EST - 04/16/2025 1:00 PM EST Surgery [facility] Endoscopy Admitting Dept Virtual Department [address] [place] [address] Brodie Flores MD [address] [place] [address] COLONOSCOPY 05/04/2025 2:15 PM EST Appointment [facility], Bone Density - [address] [address] Dario Maldonado DO [address] [place] [address] 08/11/2025 2:00 PM EDT Office [facility] [address] [place] [address] Souleymane Gonsalez MBBS 30 [place] [address] [email or web address] 09/07/2025 11:00 AM EDT Nurse Only [facility] [address] [place] [address] Dario Maldonado DO [address] [place] [address] [email or web address] 10/27/2025 1:15 PM EDT Appointment [address] [place] [address] Car Farmer MD [address] [place] [address] [email or web address] Scheduled Procedures Name Priority Associated Diagnoses Date/Ti me COLONOSCOPY History of colonic polyps 04/16/2025 12:30 PM EST documented as of this encounter Visit Diagnoses Not on filedocumented in this encounter Care Teams Floor Tiling Professional Relationship Specialty Start Date End Date Car Farmer MD [address] [place] [address] [email or web address] PCP - General Internal Medicine 03/05/23 Souleymane Gonsalez MBBS [address] [place] [address] [email or web address] Medical [email or web address] 03/15/23 documented as of this encounter Additional Source Comments The information contained in this document represents components of the legal health record. It is not the complete legal health record.[facility]
== END 2025-04-07 14:19 | disposition home or self-care (01) ==
LOC: HO.HOS 13:21
DX: S72.144A Nondisplaced intertrochanteric fracture of right femur, initial encounter for closed fracture (principal)
CPT/HCPCS: 99213

== ENCOUNTER → 2025-04-07 13:47 | Outpatient (BNV) | payer MEDICARE, SELFPAY | PROVIDERS: Visit Provider Radiology Diagnostic Radiology | DX: M25.551 Pain in right hip (principal) | CPT/HCPCS: 73502 ==